=== PATIENT | female | born 1945 | race Caucasian/White ===

== ENCOUNTER 2023-07-19 10:19 | Outpatient (OUT) | payer MEDICARE, SELFPAY ==
--- NOTE | 2023-07-19 10:26 | MR_ITS ---
[address] [address] Patient Name: NICOLE HANSON MRN: [id number] date: 1945 Sex: F Assigned Patient Location: MRI Current Patient Location: MRI Accession/Order Number: [id number] Exam Date: 07/19/2023 10:55 Report Date: 07/19/2023 12:39 At the request of: MC BOYKIN Procedure: MR angio head wo con EXAM: MR angio head wo con CLINICAL INDICATION: Cerebral Aneurysm I67.1 COMPARISON: MRA head 07/01/2022 and 06/30/2021 TECHNIQUE/PROTOCOL: 1) 3D time of flight non contrast brain MRA performed. 3D reconstructions were performed to evaluate vascular anatomy. Carotid stenosis is reported according to NASCET criteria. 2) Standard without contrast brain MRI performed. FINDINGS: Intracranial ICAs: Patent bilaterally from the skull base to the carotid terminus. Unchanged medially projecting 0.4 x 0.3 x 0.3 cm aneurysm arising from the left paraclinoid ICA segment. MCAs: Normal bilaterally. ACAs: Normal bilaterally. P-Comms: Visualized bilaterally. Vertebral arteries: Normal to the confluence with the basilar artery. Left dominant vertebral system. Basilar artery: Normal. senior credit analyst: Normal bilaterally. No restricted diffusion, extra-axial fluid collection, hydrocephalus, midline shift, or other mass effect. Intracranial flow voids are maintained. Patchy scattered hyperintense T2/FLAIR periventricular and subcortical foci are likely on the basis of chronic microvascular angiopathic changes. Moderate symmetric global volume loss without lobar predominance. Commensurate ventricular system caliber prominence. Normal marrow signal. No soft tissue abnormalities. Trace scattered paranasal sinus mucosal thickening. Mastoid air cells are well-aerated. MR/MR angio head wo con IMPRESSION: 1. Unchanged medially projecting 0.4 x 0.3 x 0.3 cm aneurysm arising from the left paraclinoid ICA segment. 2. No large vessel arterial occlusion, high-grade narrowing, or substantial luminal irregularity in the head. No new aneurysm. 3. No acute intracranial process. Electronically authenticated by: JULITA MOCK Date: 07/19/2023 12:39
== END 2023-07-19 10:20 | disposition home or self-care (01) ==
LOC: MRI 10:19
PROVIDERS: PCP Internal Medicine; Visit Provider Physician Assistant
DX: I67.1 Cerebral aneurysm, nonruptured (principal)
CPT/HCPCS: 70544

== ENCOUNTER 2024-10-19 14:29 | Outpatient (OUT) | payer MEDICARE, SELFPAY ==
--- NOTE | 2024-10-19 14:33 | MR_ITS ---
The [address] [address] Patient Name: NICOLE HANSON MRN: [id number] date: 1945 Sex: F Assigned Patient Location: MRI Current Patient Location: MRI Accession/Order Number: [id number] Exam Date: 10/19/2024 15:41 Report Date: 10/19/2024 15:50 At the request of: MC BOYKIN Procedure: MR angio head wo con MR angio head wo con 10/19/2024 3:37 PM SIGN OF SYMPTOMS: ^Cerebral Aneurysm PROTOCOL: Multisequence, multiplanar imaging of the brain was performed without the use of IV contrast. Additional [id number] MRA was also performed. COMPARISON: MRA 07/19/2023 FINDINGS: MRI BRAIN WITHOUT CONTRAST: Cortical atrophy with moderately severe chronic microvascular ischemic changes are noted. Posterior fossa appears grossly unremarkable. Intraorbital contents appear grossly unremarkable. No significant paranasal sinus disease. Midline structures appear grossly unremarkable. MRA BRAIN: The superior cerebellar arteries, posterior inferior cerebellar arteries, and the basilar artery are within normal limits. The posterior cerebral arteries are unremarkable. The intracranial segments of the internal carotid arteries once again demonstrates a saccular aneurysm extending off the medial aspect of the supraclinoid left ICA measuring approximately 4 x 4 x 3 mm similar configuration and size when compared to the prior MRI study. There are normal anterior and middle cerebral arteries. Anterior communicating artery is patent. Posterior communicating arteries are present. The deep venous system and dural venous systems appear to be patent. 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 Cortical atrophy with moderately severe chronic microvascular ischemic changes grossly similar to the prior study. Impression dictated by: Barber Trejo Jr., D.O.10/19/2024 3:50 PM Dictation Location: [place] [address] Electronically authenticated by: [id number] Y Date: 10/19/2024 15:50
== END 2024-10-19 14:30 | disposition home or self-care (01) ==
LOC: MRI 14:29
PROVIDERS: PCP Internal Medicine; Visit Provider Physician Assistant
DX: I67.1 Cerebral aneurysm, nonruptured (principal)
CPT/HCPCS: 70544

== ENCOUNTER 2025-01-25 09:50 | Outpatient (OUT) | payer MEDICARE, SELFPAY ==
--- OUTSIDE RECORDS SUMMARY | 2025-01-25 09:52 | XMS_ITS | Clinical Summary ---
Author Organization [facility] Healthcare Address [address] [place] [address] Care Team Providers Care Manager Real Estate Name Role Phone Juve Combs MD Primary Care Provider [phone] Allergies Active Allergy Reactions Criticality Noted Date Comments Glycerin Itching,Swelling 11/21/2012 Sulfa Antibiotics Itching,Rash Low 12/10/2014 Medications cetirizine (ZyrTEC ALLERGY) 10 MG tablet Take 10 mg by mouth Daily as needed. Active Ascorbic Acid (vitamin C) 250 MG tablet Take 250 mg by mouth in the morning. Active Probiotic Product (Instabug HEALTH PO) Take 1 tablet by mouth if needed. Active eye vitamin supplement (Ocuvite Eye Health Formula) capsule Take 1 capsule by mouth in the morning. Active omega-3 acid ethyl esters (Lovaza) 1 g capsule Take 1 g by mouth in the morning. Active acetaminophen (Tylenol) 500 MG tablet Take 2 tablets by mouth 1 (one) time each day. Active Glucosamine-Chondr oitin (Osteo Bi-Flex Regular Strength) 250-200 MG tablet Take 1 tablet by mouth 1 (one) time each day. Active simvastatin (Zocor) 20 MG tabletIndications: Hypocholesterolemi a TAKE 1 TABLET BY MOUTH EVERY DAY IN THE EVENING FOR 100 DAYS 90 tablet 4 02/07/20 24 Active lisinopril 10 MG tabletIndications: Essential (primary) hypertension TAKE 1 TABLET BY MOUTH EVERY DAY IN THE MORNING 100 tablet 3 05/22/20 24 Active Polyethyl Glyc-Propyl Glyc PF (Systane Preservative Free) 0.4-0.3 % solution A ctive levothyroxine (Synthroid, Levoxyl) 50 MCG tabletIndications: Acquired hypothyroidism Take 1 tablet (50 mcg) by mouth in the morning. 100 tablet 3 07/10/20 24 Active LORazepam (Ativan) 0.5 MG tabletIndications: Anxiety Take 1 tablet (0.5 mg) by mouth every 6 (six) hours if needed for anxiety or sedation 30 tablet 12/30/19 25 Active azelastine (Optivar) 0.05 % ophthalmic solution Administer 1 drop into both eyes Daily 01/03/20 25 Active Loteprednol Etabonate 0.5 % gel Apply 1 drop to both eyes in the morning and 1 drop before bedtime. 12/22/19 25 Active FLUoxetine (PROzac) 10 MG capsuleIndications :Anxiety Take 1 capsule (10 mg) by mouth Daily 30 capsule 1 01/04/20 25 Active fluticasone (Flonase) 50 MCG/ACT nasal sprayIndications:P ost-nasal drip ADMINISTER 1-2 SPRAYS INTO EACH NOSTRIL IN THE MORNING. SHAKE GENTLY. BEFORE FIRST USE, PRIME PUMP. AFTER USE, CLEAN TIP AND REPLACE CAP. 48 mL 1 09/06/19 24 025 Discontinu ed(Therapy completed) LORazepam (Ativan) 0.5 MG tabletIndications: Anxiety Take 1 tablet (0.5 mg) by mouth every 6 (six) hours if needed for anxiety or sedation 30 tablet 05/24/20 24 025 Discontinu ed(Reorder ) triamcinolone (Kenalog) 0.1 % ointment Apply 1 application topically 2 (two) times a day as needed for rash 06/10/20 24 Discontinu ed(Therapy completed) naproxen (Naprosyn) 375 MG tabletIndications: Sternocostal pain Take 1 tablet (375 mg) by mouth Daily as needed for mild pain (pain) for up to 14 days Take with food 14 tablet 01/04/20 25 Active Problems Problem Noted Date Diagnosed Date Exudative age-related macula r degeneration, left eye, stage unspecified 01/03/2025 Overview (01/03/2025): Documented on 10/01/2022 by MAN MELTON Glaucoma suspect 05/31/2024 Benign essential hypertension 06/16/2023 Hypocholesterolemia 06/16/2023 Hypothyroidism 06/16/2023 Pseudophakia 06/16/2023 Postlaminectomy syndrome of lumbar region 2022 Osteoporosis 06/16/2023 Calcaneal spur of right foot 06/16/2023 Plantar fascial fibromatosis 06/16/2023 Lumbar degenerative disc disease 06/16/2023 Thoracic spondylosis 06/16/2023 Spondylolisthesis, lumbar region 06/16/2023 Other idiopathic scoliosis, thoracolumbar region 06/16/2023 Diverticulosis of sigmoid colon 06/16/2023 Disorder of peristalsis of esophagus 06/16/2023 Nonulcer dyspepsia 06/16/2023 Cerebral aneurysm, nonruptured ([facility]) 023 Benign paroxysmal positional vertigo 06/16/2023 Vitreous degeneration, bilateral 06/16/2023 Serous detachment of retinal pigment epithelium, left eye 06/16/2023 Other chronic pain 06/16/2023 Insomnia 06/16/2023 Anxiety 06/16/2023 Atrophic gastritis 06/16/2023 Retinal neovascularization, unspecified, left ey e 06/11/2021 Cervical spondylosis without myelopathy 12/11/19 15 Resolved Problems Problem Noted Date Diagnosed Date Resolved Date Exudative age-related macular degeneration 05/31/2024 01/03/2025 Chest pain 10/29/2017 07/07/2023 Encounters Date Type Department Care Team Description 01/08/2025 Abstract [facility] [address] [place] [address] [place] [address] Juve Combs MD 01/03/2025 10:00 AM EDT Office Visit [facility] [address] [facility] [address] [place] [address] Margaux Yee PA Sternocostal pain (Primary Dx); 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; Benign essential hypertension ; Anxiety; Chest pain, unspecified type; Other fatigue; Holosystolic murmur; Exudative age-related macular degeneration, bilateral, stage unspecified ([facility]) 01/03/[address] [facility] [address] [facility] [address] [place] [address] Juve Combs MD 01/03/[address] [facility] [address] [facility] [address] [place] [address] Alena Dia MASH TUB COOKER 01/03/2025 Bamboo flowsheet [facility] [address] [facility] [address] [place] [address] Margaux Yee PA 01/03/2025 Travel 12/28/2024 Refill [facility] [address] [place] [address] [place] [address] Juve Combs MD Anxiety from Last 3 Months Immunizations Immunization Administration Dates Next Due Influenza, High Dose Seasona l, Preservative Free 06/22/2022,06/11/2021,2020,05/24 Influenza, High-dose Seasona l, Quadrivalent, Preservative Free 07/07/2023 Influenza, injectable, quadr ivalent, preservative free 09/06/2015 Influenza, seasonal, injecta ble, preservative free 06/09/2014 Influenza, seasonal, intrade rmal, preservative free 05/04/2018,05/10/2013 Pneumococcal Conjugate PCV 13 04/23/2016 Pneumococcal Polysaccharide PPSV23 01/29/2015 Zoster, live 07/18/2015 Family History Medical History Relation Name Comments Melanoma Neg Hx Relation Name Status Comments Other Alive spouse Social History Tobacco Use Types Packs/Day Years Used Date Smoking Tobacco: Former Cigarettes Smokeless Tobacco: Never Tobacco Cessation:Counseling Given: Not Answered Alcohol Use Standard Drinks/Week Comments Not Asked 0 (1 standard drink = 0.6 oz pur e alcohol) Caffeine intake: coffee PHQ-2 Answer Date Recorded Patient Health Questionnaire-2 Score 0 01/03/2025 Comments Unknown Sex and Gender Information Value Date Recorded Sex Assigned at Not on file Legal Sex Female 6:46 PM EDT Gender Identity Not on file Sexual Orientation Not on file Last Filed Vital Signs Vital Sign Reading Time Taken Comments Blood Pressure 134/82 01/03/2025 9:50 AM EDT Pulse 90 01/03/2025 9:50 AM EDT Temperature 36.4 C (97.5 F) 08/31/2024 9:30 AM EST Respiratory Rate 16 01/03/2025 9:50 AM EDT Oxygen Saturation 99% 01/03/2025 9:50 AM EDT Inhaled Oxygen Concentration - - Weight 60.4 kg (133 lb 3.2 oz) 01/03/2025 9:50 A M EDT Height 154.9 cm (5' 1 ) 01/03/2025 9:50 AM EDT Body Mass Index 25.17 01/03/2025 9:50 AM EDT Plan of Treatment Upcoming Encounters Date Type Department Care Team (Late st Contact Info) Description 01/31/2025 11:00 AM EDT Office Visit [facility] [address] [place] [address] [place] [address] Margaux Yee PA [address] [place] [address] 03/13/2025 10:00 AM EDT Office Visit [facility] [address] [place] [address] Jennifer William PA [address] [place] [address] Health Maintenance Due Date Last Done Comments Medicare Annual Wellness (AWV) 07/10/2025 07/10/2024 , 07/07/2023 Pneumococcal Vaccine: 65+ Years Completed 6, 01/29/2015 Influenza Vaccine Completed 06/03/2024, , 06/22/2022, Additional history exists Goals Goal Patient Goal Type Associated Problems Recent Progress Patient-Stated? Author Help patient manage antidepressant medication Care Plan Patient on antidepressant monitoring plan No Margaux Yee PA Additional Health Concerns Active Problems Noted Date Diagnosed Date Patient on antidepressant monitoring plan 2024 Insurance [employer] MEDICARE ADVANTAGE Care Teams Manager Real Estate Relationship Specialty Start Date End Date Juve Combs MD [address] [address] PCP - General Internal Medicine 12/15/22
--- OUTSIDE RECORDS SUMMARY | 2025-01-25 09:52 | XMS_ITS | Encounter Summary ---
Author Organization [facility] Address [address] [facility] [address] Care Team Providers Care Cone Picker Name Role Phone Juve Combs MD Primary Care Provider Encounter Details Date Type Department Care Team (Late st Contact Info) Description 07/10/2024 Abstract [facility] [address] [facility] 110 [place] [address] Juve Combs MD [address] [facility] 110 [place] [address] Social History Tobacco Use Types Packs/Day Years Used Date Smoking Tobacco: Former Cigarettes Smokeless Tobacco: Never Alcohol Use Standard Drinks/Week Comments Not Asked 0 (1 standard drink = 0.6 oz pur e alcohol) Caffeine intake: coffee PHQ-2 Answer Date Recorded Patient Health Questionnaire-2 Score 0 07/10/2024 Comments Unknown Sex and Gender Information Value Date Recorded Sex Assigned at Not on file Legal Sex Female 6:46 PM EDT Gender Identity Not on file Sexual Orientation Not on file documented as of this encounter Functional Status * Over the past 2 weeks, how often have you been bothered by any of the following problems? Question Answer Date of Assessment Author Little interest or pleasure in doing things Not at all 07/10/2024 8:00 AM EST Alena Dia LP N Feeling down, depressed, or hopeless Not at all 07/10/2024 8:00 AM EST Alena Dia LP N Patient Health Questionnaire -2 Score 0 07/10/2024 8:00 AM EST lAena Dia LP N * Question Answer Date of Assessment Author Trouble falling or staying asleep, or sleeping too much Not at all 07/10/2024 8:00 AM Shonda Ken LPN Feeling tired or having eduarda le energy Not at all 07/10/2024 8:00 AM Alena Ken LP N Poor appetite or overeating Not at all 07/10/2024 8: 00 AM Alena Ken LPN Feeling bad about yourself - or that you are a failure or have let yourself or your family down Not at all 07/10/2024 8:00 AM Alena Ken LPN Trouble concentrating on thi ngs, such as reading the newspaper or watching television Not at all 07/10/2024 8:00 AM Alena Ken LP N Moving or speaking so slowly that other people could have noticed? Or the opposite - being so fidgety or restless that you have been moving around a lot more than usual. Not at all 07/10/2024 8:00 AM Alena Ken LP N Thoughts that you would be better off or hurting yourself in some way Not at all 07/10/2024 8:00 AM Alena Ken L PN Patient Health Questionnaire -9 Score 0 07/10/2024 8:00 AM Alena Ken LP N documented as of this encounter Plan of Treatment Upcoming Encounters Date Type Department Care Team (Late st Contact Info) Description 01/31/2025 11:00 AM EDT Office Visit [facility] [address] [facility] 110 [place] [address] Margaux Yee PA [address] [facility] 110 [place] [address] 03/13/2025 10:00 AM EDT Office Visit [facility] [address] [place] [address] Jennifer William PA [address] [place] [address] documented as of this encounter Visit Diagnoses Not on filedocumented in this encounter Additional Health Concerns Assessment Noted Time PHQ-9 Depression Total Score: 0 07/10/20 24 8:00 AM EST documented as of this encounter Care Teams Cone Picker Relationship Specialty Start Date End Date Juve Combs MD [address] [id number] PCP - General Internal Medicine 12/15/22 documented as of this encounter
--- OUTSIDE RECORDS SUMMARY | 2025-01-25 09:52 | XMS_ITS | Encounter Summary ---
Author Organization [facility] Address [address] [facility] [place] [address] Care Team Providers Care Industrial Relations Worker Name Role Phone Juve Combs MD Primary Care Provider [phone] Encounter Details Date Type Department Care Team (Late Contact Info) Description 01/03/2025 Abstract [facility] [address] [facility] 110 [place] [phone] Juve Combs MD [address] [facility] 110 [place] [address] Social History Tobacco Use Types [...] pleasure in doing things Not at all 01/03/2025 9:42 AM EDT Alena Dia LP N Feeling down, depressed, or hopeless Not at all 01/03/2025 9:42 AM EDT Alena Dia LP N Patient Health Questionnaire -2 Score 0 01/03/2025 9:42 AM EDT Alena Dia LP N documented as of this encounter Plan of Treatment Upcoming Encounters Date Type Department Care Team (Late Contact Info) Description 01/31/2025 11:00 AM EDT Office Visit [facility] [address] [facility] 110 [place] [address] Margaux Yee PA [address] [facility] 110 [place] [address] 03/13/2025 10:00 AM EDT Office Visit [facility] [address] [place] [address] Jennifer William, INDY [address] [place] [address] documented as of this encounter Goals Goal Patient Goal Type Associated Problems Recent Progress Patient-Stated? Author Help patient manage antidepressant medication Care Plan Patient on antidepressant monitoring plan No Margaux Yee, PA documented as of this encounter Visit Diagnoses Not on filedocumented in this encounter Additional Health Concerns Active Problems Noted Date Diagnosed Date Patient on antidepressant monitoring plan 2024 Assessment Noted Time PHQ-9 Depression Total Score: 0 07/10/20 24 8:00 AM EST documented as of this encounter Care Teams Industrial Relations Worker Relationship Specialty Start Date End Date Juve Combs MD [address] [facility] 110 [place] [address] PCP - General Internal Medicine 12/15/22 documented as of this encounter
--- OUTSIDE RECORDS SUMMARY | 2025-01-25 09:52 | XMS_ITS | Encounter Summary ---
Author Organization [facility] Address [address] [place] [address] Care Team Providers Care Electric Plater Name Role Phone Juve Combs MD Primary Care Provider [phone] Encounter Details Date Type Department Care Team (Late Contact Info) Description 07/18/2024 Abstract [facility] [address] [facility] 110 [place] [address] Juve Combs MD [address] [facility] 110 [place] [address] Social History Tobacco Use Types Packs/Day Years [...] on file documented as of this encounter Plan of Treatment Upcoming Encounters Date Type Department Care Team (Late Contact Info) Description 01/31/2025 11:00 AM EDT Office Visit [facility] [address] [facility] 110 [place] [address] Margaux Yee PA [address] [facility] 110 [place] [address] 03/13/2025 10:00 AM EDT Office Visit [facility] [address] [place] [address] Jennifer William PA [address] [place] [address] documented as of this encounter Visit Diagnoses Not on filedocumented in this encounter Additional Health Concerns Assessment Noted Time PHQ-9 Depression Total Score: 0 07/10/20 24 8:00 AM EST documented as of this encounter Care Teams Electric Plater Relationship Specialty Start Date End Date Juve Combs MD [address] [facility] 110 [place] [address] PCP - General Internal Medicine 12/15/22 documented as of this encounter
--- OUTSIDE RECORDS SUMMARY | 2025-01-25 09:52 | XMS_ITS | Encounter Summary ---
Author Organization [facility] Address [address] [place] [address] Care Team Providers Care Grinder Set Up Operator Gear Tool Name Role Phone Juve Combs MD Primary Care Provider [phone] Encounter Details Date Type Department Care Team (Late Contact Info) Description 01/08/2025 Abstract [facility] [address] [facility] 110 [place] [address] Juve Combs MD [address] [facility] 110 [place], [place] [id number] Social History Tobacco Use Types Packs/Day Years [...] FM [address] [place] [address] [place] [address] Marguax Yee PA [address] [facility] 110 [place] [address] 03/13/2025 10:00 AM EDT Office Visit [facility] [address] [place] [address] Jennifer William PA [address] [place] [address] documented as of this encounter Goals Goal Patient Goal Type Associated Problems Recent Progress Patient-Stated? Author Help patient manage antidepressant medication Care Plan Patient on antidepressant monitoring plan Margaux Denton PA documented as of this encounter Visit Diagnoses Not on filedocumented in this encounter Additional Health Concerns Active Problems Noted Date Diagnosed Date Patient on antidepressant monitoring plan 2024 Assessment Noted Time PHQ-9 Depression Total Score: 0 07/10/20 24 8:00 AM EST documented as of this encounter Care Teams Grinder Set Up Operator Gear Tool Relationship Specialty Start Date End Date Juve Combs MD [address] [facility] 110 [place] [address] PCP - General Internal Medicine 12/15/22 documented as of this encounter
--- OUTSIDE RECORDS SUMMARY | 2025-01-25 09:52 | XMS_ITS | Encounter Summary ---
Author Organization [facility] Address [address] [facility] [place] [address] Care Team Providers Care Optometrist Owner Name Role Phone Juve Combs MD Primary Care Provider [phone] Encounter Details Date Type Department Care Team (Late Contact Info) Description 03/19/2023 Abstract [facility] [address] [facility] 110 [place] [address] Juve Combs MD [address] [facility] 110 [place] [address] Social History Tobacco Use Types Packs/Day Years Used Date Smoking Tobacco: Former Cigarettes Smokeless Tobacco: Never Comments Unknown Sex and Gender Information Value Date Recorded Sex Assigned at Not on file Legal Sex Female 6:46 PM EDT Gender Identity Not on file Sexual Orientation Not on file documented as of this encounter Plan of Treatment Upcoming Encounters Date Type Department Care Team (Late Contact Info) Description 01/31/2025 11:00 AM EDT Office Visit [facility] [address] [facility] 110 [place] [address] Margaux Yee PA [address] [facility] 110 [place] [address] 03/13/2025 10:00 AM EDT Office Visit [facility] [address] [place] [address] Jennifer William PA [address] [place] [address] documented as of this encounter Visit Diagnoses Not on filedocumented in this encounter Care Teams Optometrist Owner Relationship Specialty Start Date End Date Juve Combs MD 112 [facility] 110 [place] [address] PCP - General Internal Medicine 12/15/22 documented as of this encounter
--- OUTSIDE RECORDS SUMMARY | 2025-01-25 09:52 | XMS_ITS | Encounter Summary ---
Author Organization [facility] Address [address] [place] [address] Care Team Providers Care Resource Management Planner Name Role Phone Juve Combs MD Primary Care Provider [phone] Encounter Details Date Type Department Care Team (Late Contact Info) Description 07/19/2023 Orders Only [facility] [address] [facility] [address] [place] [address] A, Unknown Practice [address] [place], [place] [phone] Social History Tobacco Use Types Packs/Day Years Used Date Smoking Tobacco: Former Cigarettes Smokeless Tobacco: Never Alcohol Use Standard Drinks/Week Comments Not Asked 0 (1 standard drink = 0.6 oz pur e alcohol) Caffeine intake: coffee Comments Unknown Sex and Gender Information Value Date Recorded Sex Assigned at Not on file Legal Sex Female 6:46 PM EDT Gender Identity Not on file Sexual Orientation Not on file documented as of this encounter Plan of Treatment Upcoming Encounters Date Type Department Care Team (Late Contact Info) Description 01/31/2025 11:00 AM EDT Office Visit [facility] [address] [facility] 110 [place] [phone] Margaux Yee PA [address] [facility] 110 [place] [address] 03/13/2025 10:00 AM EDT Office Visit [facility] [address] [place] [address] Jennifer William PA [address] [facility] [address] [place] [address] documented as of this encounter Procedures Procedure Name Priority Date/Time Associated Diagnosis Comments MRI HEAD/BRAIN WO CONTRAS Routine 07/19/2023 12:58 PM EST documented in this encounter Results * MRI HEAD/BRAIN WO CONTRAS (07/19/2023 12:58 PM EST) Anatomical Region Laterality Modality Radiographic Gabby ging us Unknown Practice A IMG XR PROCEDURES Final Resul t documented in this encounter Visit Diagnoses Not on filedocumented in this encounter Additional Health Concerns Assessment Noted Time PHQ-9 Depression Total Score: 0 07/07/20 9:00 AM EST documented as of this encounter Care Teams Resource Management Planner Relationship Specialty Start Date End Date Juve Combs MD [address] [address] PCP - General Internal Medicine 12/15/22 documented as of this encounter
--- OUTSIDE RECORDS SUMMARY | 2025-01-25 09:52 | XMS_ITS | Encounter Summary ---
Author Organization [facility] Address [address] [place] [address] Care Team Providers Care Integrated Program Teacher Name Role Phone Juve Combs MD Primary Care Provider [phone] Encounter Details Date Type Department Care Team (Late Contact Info) Description 07/19/2023 Clinisync Result Encounter [facility] External Department Unsolicited Mc Yee PA [address] [facility] 110 [place] [address] Social History Tobacco Use Types Packs/Day Years [...] Visit [facility] [address] [facility] 110 [place] [address] Mc Yee PA [address] [facility] 110 [place] [address] 03/13/2025 10:00 AM EDT Office Visit [facility] [address] [place] [address] Jennifer William PA [address] [facility] 350 [place] [address] documented as of this encounter Procedures Procedure Name Priority Date/Time Associated Diagnosis Comments MR ANGIOGRAM HEAD WO IV CONTRAST 07/19/2023 12:39 PM EST documented in this encounter Results * MR angiogram head wo IV contrast (07/19/2023 12:39 PM EST) Anatomical Region Laterality Modality Head, Neck Magnetic Resonan ce 07/19/2023 12:3 9 PM EST Narrative 07/19/2023 12:42 [place] [address] Magnetic Resonance Report Signed Patient: Desire Hanson MR#: [id number] : 1945 Acct:[id number] Age/Sex: 78 / F ADM Date: 07/19/23 Loc: MRI Attending Dr: MC YEE Ordering Physician: MC YEE Date of Service: 07/19/23 Procedure(s): MR angio head wo con Accession Number(s): [id number] cc: JUVE COMBS ; MC YEE [place] [address] Patient Name: DESIRE HNASON MRN: [id number] date: 1945 Sex: F Assigned Patient Location: MRI Current Patient Location: MRI Accession/Order Number: [id number] Exam Date: 07/19/2023 10:55 Report Date: 07/19/2023 12:39 At the request of: MC YEE Procedure: MR angio head wo con EXAM: MR angio head wo con CLINICAL INDICATION: Cerebral Aneurysm I67.1 COMPARISON: MRA head 07/01/2022 and 06/30/2021 TECHNIQUE/PROTOCOL: 1) 3D time of flight non contrast brain MRA performed. 3D reconstructions were performed to evaluate vascular anatomy. Carotid stenosis is reported according to NASCET criteria. 2) Standard without contrast brain MRI performed. FINDINGS: Intracranial ICAs: Patent bilaterally from the skull base to the carotid terminus. Unchanged medially projecting 0.4 x 0.3 x 0.3 cm aneurysm arising from the left paraclinoid ICA segment. MCAs: Normal bilaterally. ACAs: Normal bilaterally. P-Comms: Visualized bilaterally. Vertebral arteries: Normal to the confluence with the basilar artery. Left dominant vertebral system. Basilar artery: Normal. meat smoker: Normal bilaterally. No restricted diffusion, extra-axial fluid collection, hydrocephalus, midline shift, or other mass effect. Intracranial flow voids are maintained. Patchy scattered hyperintense T2/FLAIR periventricular and subcortical foci are likely on the basis of chronic microvascular angiopathic changes. Moderate symmetric global volume loss without lobar predominance. Commensurate ventricular system caliber prominence. Normal marrow signal. No soft tissue abnormalities. Trace scattered paranasal sinus mucosal thickening. Mastoid air cells are well-aerated. MR/MR angio head wo con IMPRESSION: 1. Unchanged medially projecting 0.4 x 0.3 x 0.3 cm aneurysm arising from the left paraclinoid ICA segment. 2. No large vessel arterial occlusion, high-grade narrowing, or substantial luminal irregularity in the head. No new aneurysm. 3. No acute intracranial process. Electronically authenticated by: LIZZ RODRIGUEZ Date: 07/19/2023 12:39 Dictated By: Lizz Rodriguez M.D. Signed By: 07/19/23 1242 DD/ 1239 TD/TT: Featheredge Machine Operator: Procedure Note Radiology, Radiologist, MD - 07/20/[address] [address] Magnetic Resonance Report Signed Patient: Desire Hanson KMR#: [id number] : 1945cct:[id number] Age/Sex: 78 / FADM Date: 07/19/23 Loc: MRI Attending Dr: MC YEE Ordering Physician: MC YEE Date of Service: 07/19/23 Procedure(s): MR angio head wo con Accession Number(s): [id number] cc: JUVE COMBS ; MC YEE [address] [address] Patient Name: DESIRE HANSON MRN: [id number] date: 1945 Sex: F Assigned Patient Location: MRI Current Patient Location: MRI Accession/Order Number: [id number] Exam Date: 07/19/2023 10:55 Report Date: 07/19/2023 12:39 At the request of: MC YEE Procedure: MR angio head wo con EXAM: MR angio head wo con CLINICAL INDICATION: Cerebral Aneurysm I67.1 COMPARISON: MRA head 07/01/2022 and 06/30/2021 TECHNIQUE/PROTOCOL: 1) 3D time of flight non contrast brain MRA performed. 3D reconstructionswere performed to evaluate vascular anatomy. Carotid stenosis is reportedaccording to NASCET criteria. 2) Standard without contrast brain MRI performed. FINDINGS: Intracranial ICAs: Patent bilaterally from the skull base to the carotid terminus. Unchanged medially projecting 0.4 x 0.3 x 0.3 cm aneurysmarising from the left paraclinoid ICA segment. MCAs: Normal bilaterally. ACAs: Normal bilaterally. P-Comms: Visualized bilaterally. Vertebral arteries: Normal to the confluence with the basilar artery. Left dominant vertebral system. Basilar artery: Normal. meat smoker: Normal bilaterally. No restricted diffusion, extra-axial fluid collection, hydrocephalus,midline shift, or other mass effect. Intracranial flow voids are maintained.Patchy scattered hyperintense T2/FLAIR periventricular and subcortical foci are likely on the basis of chronic microvascular angiopathic changes. Moderatesymmetric global volume loss without lobar predominance. Commensurate ventricularsystem caliber prominence. Normal marrow signal. No soft tissue abnormalities. Trace scatteredparanasal sinus mucosal thickening. Mastoid air cells are well-aerated. MR/MR angio head wo con IMPRESSION: 1. Unchanged medially projecting 0.4 x 0.3 x 0.3 cm aneurysm arising fromthe left paraclinoid ICA segment. 2. No large vessel arterial occlusion, high-grade narrowing, orsubstantial luminal irregularity in the head. No new aneurysm. 3. No acute intracranial process. Electronically authenticated by: LIZZ RODRIGUEZ Date: 07/19/2023 12:39 Dictated By: Lizz Rodriguez M.D. Signed By:07/19/23 1242 DD/ 1239 TD/TT: Featheredge Machine Operator: us Mc PUTNAM IMG MRI PROCEDURES Final Resul t documented in this encounter Visit Diagnoses Not on filedocumented in this encounter Additional Health Concerns Assessment Noted Time PHQ-9 Depression Total Score: 0 07/07/20 9:00 AM EST documented as of this encounter Care Teams Integrated Program Teacher Relationship Specialty Start Date End Date Juve Combs MD [address] [facility] 110 [place] [address] PCP - General Internal Medicine 12/15/22 documented as of this encounter
--- OUTSIDE RECORDS SUMMARY | 2025-01-25 09:52 | XMS_ITS | Encounter Summary ---
Author Organization [facility] Address [address] [facility] [place] [address] Care Team Providers Care Nuclear Control Operator Name Role Phone Juve Combs MD Primary Care Provider [phone] Encounter Details Date Type Department Care Team (Late Contact Info) Description 07/14/2023 Abstract [facility] [address] [facility] 110 [place] [address] Juve Combs MD [address] [facility] 110 [place] [address] Social History Tobacco Use Types Packs/Day Years [...] Office Visit [facility] [address] [facility] 110 [place] [address] Margaux Yee PA [address] [facility] 110 [place] [address] 03/13/2025 10:00 AM EDT Office Visit [facility] [address] [place] [address] Jennifer William PA [address] [facility] 350 [place] [address] documented as of this encounter Visit Diagnoses Not on filedocumented in this encounter Additional Health Concerns Assessment Noted Time PHQ-9 Depression Total Score: 0 07/07/20 23 9:00 AM EST documented as of this encounter Care Teams Nuclear Control Operator Relationship Specialty Start Date End Date Juve Combs MD 112 [facility] 110 [place] [address] PCP - General Internal Medicine 12/15/22 documented as of this encounter
--- OUTSIDE RECORDS SUMMARY | 2025-01-25 09:52 | XMS_ITS | Encounter Summary ---
Author Organization [facility] Address [address] [place] [facility] [place] [address] Care Team Providers Care Construction And Maintenance Inspector Name Role Phone Juve Combs MD Primary Care Provider [phone] Encounter Details Date Type Department Care Team (Late Contact Info) Description 08/18/2023 Orders Only [facility] [address] [facility] 110 [place] [address] A, Unknown Practice [address] [place], [place] [address] Social History Tobacco Use Types Packs/Day Years [...] Visit [facility] [address] [facility] 110 [place] [phone] Margaux Yee PA [address] [place] [place] [address] 03/13/2025 10:00 AM EDT Office Visit [facility] [address] [place] [address] Jennifer William PA [address] [facility] [address] [place] [address] documented as of this encounter Procedures Procedure Name Priority Date/Time Associated Diagnosis Comments SCANNED LABS Routine 08/12/2023 10:29 AM EST documented in this encounter Results * SCANNED LABS (08/12/2023 10:29 AM EST) us Unknown Practice A LAB CHG PERFORMABLES Final Re sult documented in this encounter Visit Diagnoses Not on filedocumented in this encounter Additional Health Concerns Assessment Noted Time PHQ-9 Depression Total Score: 0 07/07/20 9:00 AM EST documented as of this encounter Care Teams Construction And Maintenance Inspector Relationship Specialty Start Date End Date Juve Combs MD 112 [facility] 110 [place] [address] PCP - General Internal Medicine 12/15/22 documented as of this encounter
--- OUTSIDE RECORDS SUMMARY | 2025-01-25 09:52 | XMS_ITS | Encounter Summary ---
Author Organization [facility] Address [address] [place] [address] Care Team Providers Care Mine Supervisor Name Role Phone Juve Combs MD Primary Care Provider [phone] Encounter Details Date Type Department Care Team (Late Contact Info) Description 10/09/2024 Orders Only [facility] [address] [place] 110 [place] [phone] Margaux Yee PA [address] [place] [address] [place], [place] [address] Social History Tobacco Use Types Packs/Day Years [...] FM [address] [place] 110 [place] [address] Margaux Yee PA [address] [place] [address] [place] [address] 03/13/2025 10:00 AM EDT Office Visit [facility] [address] [place] [address] Jennifer William, PA [address] [place] [address] documented as of this encounter Visit Diagnoses Not on filedocumented in this encounter Additional Health Concerns Assessment Noted Time PHQ-9 Depression Total Score: 0 07/10/20 24 8:00 AM EST documented as of this encounter Care Teams Mine Supervisor Relationship Specialty Start Date End Date Juve Combs MD 112 [facility] 110 [place] [address] PCP - General Internal Medicine 12/15/22 documented as of this encounter
--- OUTSIDE RECORDS SUMMARY | 2025-01-25 09:54 | XMS_ITS | Clinical Summary ---
Author Organization [facility] Address [address] [place] [address] Care Team Providers Care Gyn Physician Name Role Phone Garret CORBIN MD, Juve Zhao Primary Care Provider [phone] Allergies Active Allergy Reactions Criticality Noted Date Comments Glycerin Swelling,Itching 11/21/2012 Seasonal Allergies Other: See Comments 11/22/19 13 Sneezing,runny nose,and itchy eyes Sulfa (Sulfonamide Antibiotics) Itching 12/10/2014 Medications LORazepam 0.5 mg TabIndications:C erebral aneurysm, nonruptured (HCC) Take 0.5 mg by mouth daily at bedtime. Active CALCIUM CARBONATE (CALTRATE 600 ORAL)Indications :Cerebral aneurysm, nonruptured (HCC) Take by mouth once daily. Active CETIRIZINE HCL (ZYRTEC ORAL)Indications :Cerebral aneurysm, nonruptured (HCC) Take by mouth as needed. Active MULTIVITAMIN W-MINERALS/LUTEI N (CENTRUM SILVER ORAL)Indications :Cerebral aneurysm, nonruptured (HCC) Take by mouth once daily. Active lisinopril (ZESTRIL, PRINIVIL) 10 mg tablet Take 10 mg by mouth once daily. Active L GASSERI/B BIFIDUM/B LONGUM (Active Optical [employer] [facility] ORAL) Take by mouth. Active Vit A,C and F-Wykp-Q0-Lut-Mn -Glu (EYE-CHUCK EXTRA + LUTEIN) 4912-181-835-2 nlkm-bx-ybyf-mg tab Take by mouth. Takes eye promise vitamin Active VITAMIN B COMPLEX NO.12-NIACIN ORAL Take 500 mg by mouth. Active levothyroxine (SYNTHROID) 50 mcg tablet TAKE 1 TABLET BY MOUTH DAILY IN THE MORNING ON AN EMPTY STOMACH 6 07/21/2017 Active FLAXSEED OIL (OMEGA 3 ORAL) Take 1 tablet by mouth once daily. 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 HTN (hypertension) High cholesterol Neck pain Thyroid disease Vertigo Overview (12/10/2014): hospitalized in [place] Family History Medical History Relation Comments high blood presssure [Other] Father Diabetes Mother heart attack [Other] Mother Relation Status Comments Father Mother Social History Tobacco Use Types Packs/Day Years Used Date Smoking Tobacco: Former Cigarettes 0 08/09/1960 - 08/09/1992 Smokeless Tobacco: Never Alcohol Use Standard Drinks/Week Comments Yes 0 (1 standard drink = 0.6 oz pur e alcohol) social Area Deprivation Index Answer Date Alan rded National Score (1-100), lower number is lower ri sk Not on file 07/17/2020 State Score (1-10), lower number is lower risk N ot on file 07/17/2020 Data from: https://www.neighborhoodatlas.medicine.[facility].edu/. Last address used for calculation Not on file 07/17/2020 Comments No Sex and Gender Information Value Date Recorded Sex Assigned at Not on file Legal Sex Female 11:05 AM EDT Gender Identity Not on file Sexual Orientation Not on file Occupation Industry Job Start Date Job End Date retired Not on file Not on file Not on file Last Filed Vital Signs Vital Sign Reading Time Taken Comments Blood Pressure 139/62 08/18/2017 10:48 AM EST Pulse 90 08/18/2017 10:48 AM EST Temperature - - Respiratory Rate 18 08/18/2017 10:48 AM EST Oxygen Saturation - - Inhaled Oxygen Concentration - - Weight 65.8 kg (145 lb) 08/18/2017 10:48 AM EST Height 160 cm (5' 3 ) 08/18/2017 10:48 AM EST Body Mass Index 25.69 08/18/2017 10:48 AM EST Plan of Treatment Health Maintenance Due Date Last Done Comments Anxiety Screening 1961 Depression Screening 1961 DTaP,Tdap,Td Vaccine (1 - Tdap) 1962 Diabetes Screening 1988 Pneumococcal Vaccine: 50+ (1 of 1 - PCV) 1993 Shingrix Vaccine (1 of 2) 1993 Bone Density Screening 2008 RSV Vaccine (1 - 1-dose 75+ series) 2018 Covid-19 Vaccine (1 - season) 2024 Advance Directive Discussion 08/09/2024 Influenza Vaccine (Season Ended) 2025 Insurance [facility] MEDICARE ADVANTAGE PPO Care Teams Gyn Physician Relationship Specialty Start Date End Date Juve Combs II, MD PCP - General Internal Medicine 11/11/12
--- NOTE | 2025-01-25 10:00 | CA_ITS ---
Patient Name: NICOLE HANSON MR#: [id number] : 1945 Exam Date: 01/25/2025 Ordering Doctor: DR MC PUTNAM CORRECTION Corrected on: 01/26/2025; ECHOCARDIOGRAM REPORT PROCEDURE: CA ECHO DOPPLER COMPLETE INDICATIONS: Chest pain, fatigue, hypertension, murmur, h/o Amarilys fever, h/o Hodgkin's lymphoma COMPARISON: None. DESCRIPTION: COMPLETE ECHOCARDIOGRAM Real-time transthoracic echocardiography with 2D, M-mode, spectral and color flow Doppler performed. QUALITY: Technical quality was good. LEFT VENTRICLE: Normal chamber size. Moderate concentric left ventricular hypertrophy. Normal systolic function. Estimated left ventricular ejection fraction is 65%. LV EF: Normal left ventricular ejection fraction, (>55%). DIASTOLIC: Normal diastolic function. ATRIAL SEPTUM: Visually appears intact. LEFT ATRIUM: Normal chamber size. RIGHT ATRIUM: Normal chamber size. RIGHT VENTRICLE: Normal chamber size. Normal right ventricular systolic function. TRICUSPID VALVE: Normal mobility and thickness. No stenosis with mild regurgitation. No evidence of pulmonary hypertension. RVSP 31 mmHg MITRAL VALVE: Normal mobility and thickness. No evidence of mitral valve stenosis. There is no mitral annular calcification. No mitral regurgitation. AORTIC VALVE: Normal trileaflet appearance. Moderately calcified aortic valve. Moderately diminished mobility. Doppler velocity suggest moderate aortic valve stenosis. DVI 0.3, PALAK 1.3 cm2. No aortic regurgitation. AORTIC ROOT: Normal diameter and appearance measuring 3.1 cm. Aortic arch is normal in size. The ascending aorta is not visualized. PULMONIC VALVE: Normal thickness and mobility. No stenosis. Trivial regurgitation. PERICARDIUM: No evidence of pericardial effusion. IVC: Collapses with inspiration. PLEURA: CONCLUSION: 1. Moderate concentric left ventricular hypertrophy with normal systolic function. Estimated LVEF is 65%. 2. Normal right ventricular size and systolic function. 3. Normal diastolic function. 4. Heavily calcified aortic valve with moderate stenosis. 5. Mild tricuspid regurgitation. 6. Normal right-sided pressures. Adult Echocardiography Procedure Report Left Ventricle LVEDD (3.7 - 5.6 cm): 3.18 cm LVESD (2.2 - 4.0 cm): 2.55 cm LVIVS thickness (0.6 - 1.2 cm): 1.26 cm LVPW thickness (0.5 - 1.0 cm): 1.06 cm e': 0.11 m/s E - e': 4.53 LVOT Max Gradient: 1.66 mm[Hg] LVOT Area (cm2): 0.64 m/s Peak Velocity (LVOT): 0.64 m/s Mean Velocity (LVOT): 0.39 m/s LVOT Diameter 2.04 cm Left Atrium LA Volume Index (2D A2C): 24.05 ml/m2 Left Atrium Systolic Dimension: 3.37 cm Mitral Valve MV E to A Ratio: 0.55 Mitral Valve A-Wave Peak Velocity: 0.89 m/s Mitral Valve E-Wave Peak Velocity: 0.49 m/s Right Ventricle Aorta AO Root Diam: 3.15 cm Aortic Valve AoV Area (Peak Grupo): 1.05 cm2, 1.20 cm2 AoV Area (VTI): 1.29 cm2, 1.37 cm2 Peak Velocity(Antegrade Flow): 1.75 m/s, 1.82 m/s, 2.02 m/s Peak Gradient(Antegrade Flow): 12.29 mm[Hg], 13.25 mm[Hg], 16.30 mm[Hg] Mean Velocity(Antegrade Flow): 1.15 m/s, 1.11 m/s, 1.39 m/s Mean Gradient(Antegrade Flow): 6.32 mm[Hg], 6.13 mm[Hg], 8.84 mm[Hg] Velocity Time Integral: 34.32 cm, 36.00 cm, 36.50 cm Tricuspid Valve Peak Velocity (Regurgitant Flow): 2.34 m/s, 2.64 m/s, 2.53 m/s Pulmonic Valve Peak Gradient: 4.56 mm[Hg], 3.55 mm[Hg] Right Atrium Right Atrium Systolic Pressure: 39.33 ml, 39.33 ml Dictated by: Campos Brown M.D. on 01/26/2025 at 08:04 Approved by: Campos Brown M.D. on 01/26/2025 at 08:09 Dictated by: Campos Brown M.D. on 01/26/2025 at 08:17 Approved by: Campos Brown M.D. on 01/26/2025 at 08:17
--- OUTSIDE RECORDS SUMMARY | 2025-01-25 10:03 | XMS_ITS | CCD ---
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 [employer] Name Role Phone PHYSICIAN, DEFAULT Unavailable Unavailable PHYSICIAN, DEFAULT Unavailable Unavailable PHYSICIAN, DEFAULT Unavailable Unavailable PHYSICIAN, DEFAULT Unavailable Unavailable MAN LEO Unavailable Unavailable Paulino Soriano Admitting Unavailable Paulino Soriano Attending Unavailable Juve Combs Primary Care Unavailabl e JUVE COMBS Consulting Unavailabl Paulino Fishman Attending Unavailable Juve Combs Primary Care Unavailabl JUVE Cole Consulting Unavailabl e AHMEDJUDI Consulting Unavailable Paulino Soriano Attending Unavailable JUVE COBMS Primary Care Unavailabl e JUVE COMBS Consulting Unavailabl e BAHNSARAH Consulting Unavailable ASHUTOSH, DR MARGAUX Capps Admitting Unavailable ASHUTOSH, DR MARGAUX Capps Attending Unavailable GARRET, DR ENGLE Primary Care Unavailable ZIEBREYMUNDO, DR DMITRI Persaud Consulting Unavailable ASHUTOSH, DR MARGAUX Capps Consulting Unavailable Juve Combs MD Primary Care Provider Fermin Lees MD Unavailable UnavailHuy Pacheco Jr, MD Unavailable Unavailable Corporate, Doctor Attending Unavailable Fermin Lees Attending Unavailable Fermin Lees Referring Unavailable Fermin Lees Attending Unavailable Fermin Lees Referring Unavailable Huy Marcano Jr Attending Unavailable Huy Marcano Jr Referring Unavailable BRAYDEN HAYES Referring Unavailable BRAYDEN HAYES Attending Unavailable JENNIFER SHAW Attending Unavailable MARGAUX BOYKIN Attending Unavailable MARGAUX BOYKIN Attending Unavailable MARGAUX BOYKIN Attending Unavailable Corporate , Doctor Unavailable Unavailable Allergies Allergy Classification Reported Allergen(s) Allergy Type Date of Onset Reaction(s) Facility (14 sources) glycerin; Translations: [GLYCERIN] Drug Allergy 3 Itching, Swelling [facility] Repository (1 source) Seasonal allergy; Translations: [SEASONAL ALLERGIES] Propensity to adverse reactions (disorder) 3 AOF [facility] Repository (1 source) Sulfonamides (Antibiotic); Translations: [SULFA (SULFONAMIDE ANTIBIOTICS)] Propensity to adverse reactions to drug (disorder) 5 AOF [facility] Repository (1 source) Sulfonamides (Antibiotic); Translations: [sulfa drugs] Propensity to adverse reactions to drug (disorder) [facility] Repository (1 source) Sulfonamides (Antibiotic) Drug allergy (disorder) 6 [facility] Repository (13 sources) Sulfonamides (Antibiotic) Drug Allergy 5 Itching, Rash [facility] Medications Current Medications Medication Drug Class(es) Dates Sig (Normalized) Sig (Original) acetaminophen 500 mg oral tablet (13 sources) take 2 tablets by mouth once daily acetaminophen (Tylenol) 500 MG tablet Take 2 tablets by mouth 1 (one) time each day. Active ascorbic acid 250 mg oral tablet (13 sources) Vitamin C take 1 tablet by mouth in the morning Ascorbic Acid (vitamin C) 250 MG tablet Take 250 mg by mouth in the morning. Active ascorbic acid 60 mg / cuprous oxide 2 mg / dl-alpha tocopheryl acetate 30 mg / lutein 6 mg / zinc oxide 15 mg oral capsule (3 sources) Vitamin C take 1 capsule by mouth in the morning eye vitamin supplement (Ocuvite Eye Health Formula) capsule Take 1 capsule by mouth in the morning. Active azelastine hydrochloride 0.5 mg/ml ophthalmic solution (3 sources) Histamine-1 Receptor Antagonist Start: 01-02-2025 take 1 drop(s) into the eye(s) once daily azelastine (Optivar) 0.05 % ophthalmic solution Administer 1 drop into both eyes Daily 01/02/2025 Active cetirizine hydrochloride 10 mg oral tablet (13 sources) Histamine-1 Receptor Antagonist take 1 tablet by mouth every twenty-four hours as needed cetirizine (ZyrTEC ALLERGY) 10 MG tablet Take 10 mg by mouth Daily as needed. Active chondroitin sulfates 200 mg / glucosamine hydrochloride 250 mg oral tablet (13 sources) take 1 tablet by mouth once daily Glucosamine-Chondro itin (Osteo Bi-Flex Regular Strength) 250-200 MG tablet Take 1 tablet by mouth 1 (one) time each day. Active eye vitamin supplement (Ocuvite Eye Health Formula) capsule (10 sources) take 1 capsule by mouth in the morning eye vitamin supplement (Ocuvite Eye Health Formula) capsule Take 1 capsule by mouth in the morning. Active FLUoxetine 10 mg oral capsule (2 sources) Serotonin Reuptake Inhibitor Start: 01-03-2025 End: 03-04-2025 take 1 capsule by mouth once daily FLUoxetine (PROzac) 10 MG capsule Indications: Anxiety Take 1 capsule (10 mg) by mouth Daily 30 capsule 1 01/03/2025 03/04/2025 Active fluticasone propionate 0.05 mg/actuat metered dose nasal spray (13 sources) Corticosteroid Start: 09-06-2023 End: 01-03-2025 take 1-2 spray(s) nasal route in the morning fluticasone (Flonase) 50 MCG/ACT nasal spray Indications: Post-nasal drip ADMINISTER 1-2 SPRAYS INTO EACH NOSTRIL IN THE MORNING. SHAKE GENTLY. BEFORE FIRST USE, PRIME PUMP. AFTER USE, CLEAN TIP AND REPLACE CAP. 48 mL 1 09/06/2023 01/03/2025 Discontinued (Therapy completed) gabapentin 100 mg oral capsule (3 sources) Anti-epileptic Agent take 2 tablets by mouth once daily gabapentin 100 mg capsule 2 tabs QD P.O. - Active ketotifen 0.25 mg/ml ophthalmic solution (4 sources) Histamine-1 Receptor Inhibitor Start: 08-12-2023 End: 05-31-2024 take 1 drop(s) into the eye(s) in the morning ketotifen (Zaditor) 0.025 % ophthalmic solution Indications: Allergic conjunctivitis of both eyes Administer 1 drop into both eyes in the morning and 1 drop before bedtime. 5 mL 08/12/2023 05/31/2024 Discontinued (Other) levothyroxine sodium 0.05 mg oral tablet (18 sources) l-Thyroxine Start: 07-12-2023 End: 07-10-2024 take 1 tablet by mouth in the morning levothyroxine (Synthroid, Levoxyl) 50 MCG tablet Indications: Acquired hypothyroidism (CMS/HCC) Take 1 tablet (50 mcg) by mouth in the morning. 100 tablet 3 07/10/2024 Active take 1 capsule by mouth once david ly Tirosint 50 mcg capsule take 1 capsule by oral route every day 50 MCG - Active lisinopril 10 mg oral tablet (16 sources) Angiotensin Converting Enzyme Inhibitor Start: 05-22-2024 take 1 tablet by mouth once daily in the morning lisinopril 10 MG tablet Indications: Essential (primary) hypertension (CMS/HCC) TAKE 1 TABLET BY MOUTH EVERY DAY IN THE MORNING 100 tablet 3 05/22/2024 Active LORazepam 0.5 mg oral tablet (17 sources) Benzodiazepine Start: 12-29-2024 take 1 tablet by mouth every six hours as needed for anxiety and anxiety and anxiety LORazepam (Ativan) 0.5 MG tablet Indications: Anxiety Take 1 tablet (0.5 mg) by mouth every 6 (six) hours if needed for anxiety or sedation 30 tablet 12/29/2024 Active Start: 12-20-2023 End: 05-24-2024 take 1 tablet by mouth every six hours as needed for anxiety and anxiety and anxiety LORazepam (Ativan) 0.5 MG tablet Indications: Anxiety Take 1 tablet (0.5 mg) by mouth every 6 (six) hours if needed for anxiety or sedation 30 tablet 05/24/2024 Active take 1 tablet by miguel th once daily as needed lorazepam 0.5 mg tablet take 1 tablet by oral route every day as needed as needed 0.5 MG - Active loteprednol etabonate 0.005 mg/mg ophthalmic gel (3 sources) Start: 12-21-2024 apply 1 drop(s) into the eye(s) in the morning Loteprednol Etabonate 0.5 % gel Apply 1 drop to both eyes in the morning and 1 drop before bedtime. 12/21/2024 Active naproxen 375 mg oral tablet (2 sources) Nonsteroidal Anti-inflammatory Drug Start: 01-03-2025 End: 01-17-2025 take 1 tablet by mouth once daily at mealtime as needed for pain naproxen (Naprosyn) 375 MG tablet Indications: Sternocostal pain Take 1 tablet (375 mg) by mouth Daily as needed for mild pain (pain) for up to 14 days Take with food 14 tablet 01/03/2025 01/17/2025 Active omega-3 acid ethyl esters (fci) 1000 mg oral capsule (13 sources) omega-3 acid eth yl esters (Lovaza) 1 g capsule Take 1 g by mouth in the morning. Active polyethylene glycol 400 4 mg/ml / propylene glycol 3 mg/ml ophthalmic solution (14 sources) Systane (PF) 0.4 %-0.3 % eye drops in a dropperette - Active Probiotic Product (DAVIDsTEA PO) (13 sources) Probiotic Produc t (DAVIDsTEA PO) Take 1 tablet by mouth if needed. Active simvastatin 20 mg oral tablet (13 sources) HMG-CoA Reductase Inhibitor Start: 02-07-2024 take 1 tablet by mouth once daily in the evening simvastatin (Zocor) 20 MG tablet Indications: Hypocholesterolemia (CMS/HCC) TAKE 1 TABLET BY MOUTH EVERY DAY IN THE EVENING FOR 100 DAYS 90 tablet 4 02/07/2024 Active triamcinolone acetonide 0.001 mg/mg topical ointment (9 sources) Corticosteroid Start: 06-10-2024 End: 01-03-2025 triamcinolone (Kenalog) 0.1 % ointment Apply 1 application topically 2 (two) times a day as needed for rash 06/10/2024 01/03/2025 Discontinued (Therapy completed) Completed/Discontinued Medications Medication Drug Class(es) Dates Sig (Normalized) Sig (Original) betamethasone 3 mg/ml / betamethasone acetate 3 mg/ml injectable suspension (8 sources) Corticosteroid Start: 08-31-2024 End: 08-31-2024 1 mL, Intra-articular, Once PRN Procedure, Starting on Dawn 08/31/24 at 1028, For 1 dose Start: 08-31-2024 End: 08-31-2024 betamethasone acetate-betame thasone sodium phosphate (Celestone) injection 1 mL Problems Active Problems Problem Classification Problem Date Documented Da te Episodic/Chronic Administrative/social admission (2 sources) Patient encounter status; Translations: [Other specified counseling] 07-10-2024 Episodic Anxiety disorders (18 sources) Anxiety; Translations: [Anxiety disorder, unspecified] Onset: 06-16-2023 05-24-2024 Chronic Cataract (20 sources) Artificial lens present; Translations: [Presence of intraocular lens] Onset: 06-16-2023 06-16-2023 Chronic Diverticulosis and diverticulitis (15 sources) Diverticulosis of sigmoid colon; Translations: [Diverticulosis of large intestine without perforation or abscess without bleeding] Onset: 06-16-2023 06-16-2023 Chronic Esophageal disorders (15 sources) Disorder of esophageal peristalsis; Translations: [Dyskinesia of esophagus] Onset: 06-16-2023 06-16-2023 Chronic Essential hypertension (20 sources) Essential (primary) hypertension; Translations: [Benign essential hypertension] Onset: 07-06-2022 06-16-2023 Chronic Gastritis and duodenitis (17 sources) Atrophic gastritis; Translations: [Chronic atrophic gastritis without bleeding] Onset: 06-16-2023 06-16-2023 Chronic Glaucoma (20 sources) Preglaucoma, unspecified, unspecified eye; Translations: [Preglaucoma, unspecified] Onset: 05-16-2024 05-31-2024 Chronic Heart valve disorders (4 sources) Pansystolic murmur; Translations: [Cardiac murmur, unspecified] 01-03-2025 Episodic Malaise and fatigue (4 sources) Fatigue; Translations: [Other fatigue] 01-03-2025 Episodic Miscellaneous mental health disorders (2 sources) Primary insomnia; Translations: [Primary insomnia] 07-10-2024 Chronic Nonspecific chest pain (19 sources) Chest pain; Translations: [Chest pain, unspecified] Onset: 10-29-2017 Resolved: 07-07-2023 07-07-2023 Episodic Osteoporosis (16 sources) Age-related osteoporosis without current pathological fracture; Translations: [Osteoporosis] Onset: 07-06-2022 06-16-2023 Chronic Other and ill-defined cerebrovascular disease (1 source) Cerebral aneurysm, nonruptured; Translations: [CEREBRAL ANEURYSM NONRUPTURED] Onset: 07-06-2022 Chronic Other and ill-defined cerebrovascular disease (15 sources) Cerebral arterial aneurysm; Translations: [Cerebral aneurysm, nonruptured] Onset: 06-16-2023 06-16-2023 Chronic Other bone disease and musculoskeletal deformities (15 sources) Idiopathic scoliosis of thoracic and lumbar spine; Translations: [Other idiopathic scoliosis, thoracolumbar region] Onset: 06-16-2023 06-16-2023 Chronic Other eye disorders (15 sources) Bilateral vitreous degeneration of eyes; Translations: [Vitreous degeneration, bilateral] Onset: 06-16-2023 06-16-2023 Chronic Other eye disorders (20 sources) Vitreous degeneration, bilateral; Translations: [Vitreous degeneration, bilateral] Onset: 05-16-2024 Chronic Other eye disorders (9 sources) Dry eye syndrome of bilateral lacrimal glands Episodic Other nervous system disorders (15 sources) Chronic pain; Translations: [Other chronic pain] Onset: 06-16-2023 06-16-2023 Chronic Other non-traumatic joint disorders (2 sources) Pain in right shoulder; Translations: [Pain in joint, shoulder region] 08-31-2024 Episodic Other nutritional; endocrine; and metabolic disorders (1 source) Lipoprotein deficiency; Translations: [LIPOPROTEIN DEFICIENCY] Onset: 07-06-2022 Chronic Other nutritional; endocrine; and metabolic disorders (15 sources) Hypocholesterolemia; Translations: [Lipoprotein deficiency] Onset: 06-16-2023 06-16-2023 Chronic Other upper respiratory disease (2 sources) Allergic rhinitis; Translations: [Other allergic rhinitis] 05-31-2024 Chronic Retinal detachments; defects; vascular occlusion; and retinopathy (20 sources) 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; Translations: [Serous detachment of retinal pigment epithelium, left eye] Onset: 11-27-2020 Resolved: 12-16-2023 06-16-2023 Chronic Spondylosis; intervertebral disc disorders; other back problems (20 sources) Lumbar post-laminectomy syndrome; Translations: [Postlaminectomy syndrome, not elsewhere classified] Onset: 12-10-2014 06-16-2023 Chronic Thyroid disorders (16 sources) Hypothyroidism, unspecified; Translations: [Hypothyroidism] Onset: 07-06-2022 06-16-2023 Chronic Unclassified (4 sources) Right shoulder pain, unspecified chronicity 09-02-2024 Unclassified (3 sources) AMD (chief complaint) Onset: 10-03-2024 Unclassified (3 sources) CNV (chief complaint) Onset: 05-16-2024 Unclassified (2 sources) Patient on antidepressant monitoring plan Onset: 01-03-2025 01-03-2025 Past or Other Problems Problem Classification Problem Date Documented Date Episodic/Chronic Conditions associated with dizziness or vertigo (15 sources) Benign paroxysmal positional vertigo; Translations: [Benign paroxysmal vertigo, unspecified ear] Onset: 06-16-2023 Episodic Mood disorders (13 sources) Mood disorders Onset: 3 Resolved: 4 07-07-2023 Other acquired deformities (15 sources) Lumbar spondylolisthesis; Translations: [Spondylolisthesis, lumbar region] Onset: 3 06-16-2023 Episodic Other connective tissue disease (15 sources) Calcaneal spur of right foot; Translations: [Calcaneal spur, right foot] Onset: 3 06-16-2023 Episodic Other connective tissue disease (15 sources) Plantar fascial fibromatosis; Translations: [Plantar fascial fibromatosis] Onset: 3 06-16-2023 Episodic Other disorders of stomach and duodenum (15 sources) Nonulcer dyspepsia; Translations: [Functional dyspepsia] Onset: 3 06-16-2023 Episodic Residual codes; unclassified (13 sources) Insomnia; Translations: [Insomnia, unspecified] Onset: 3 06-16-2023 Episodic Unclassified (6 sources) retinal neovascularization (chief complaint) stable vision (chief complaint) Onset: 0 Resolved: 2 Unclassified (3 sources) retinal neovascularization (chief complaint) sensitivity to light (chief complaint) Onset: 1 Unclassified (3 sources) retinal neovascularization (chief complaint) vision improvement (chief complaint) Onset: 1 Unclassified (3 sources) retinal neovascularization (chief complaint) stable vision (chief complaint) vision improvement (chief complaint) Onset: 1 Unclassified (3 sources) retinal neovascularization (chief complaint) improvement in distortion (chief complaint) Onset: 0 Unclassified (3 sources) retinal neovascularization (chief complaint) improved vision (chief complaint) Onset: 0 Unclassified (3 sources) retinal neovascularization (chief complaint) increase in vision (chief complaint) Onset: 0 Unclassified (3 sources) Injection Only of Avastin for retinal law (chief complaint) Onset: 0 Unclassified (3 sources) Retinal neovascularization (chief complaint) cloudy vision (chief complaint) Onset: 0 Unclassified (3 sources) macular edema (chief complaint) cloudy vision (chief complaint) Onset: 0 Results Test Name Value Interpretation Reference Range Facility MRA Head vessels WO contrast on 10-19-2024 [place] [id number] Magnetic Resonance Report Signed Patient: DESIRE HIRSCH MR#: [id number] : 1945 Acct:[id number] Age/Sex: 79 / F ADM Date: 10/19/24 Loc: MRI Attending Dr: MARGAUX BOYKIN Ordering Physician: MARGAUX BOYKIN Date of Service: 10/19/24 Procedure(s): MR angio head wo con Accession Number(s): [id number] cc: JUVE COMBS ; MARGAUX BOYKIN [place] [id number] Patient Name: DESIRE HIRSCH MRN: [id number] date: 1945 Sex: F Assigned Patient Location: MRI Current Patient Location: MRI Accession/Order Number: [id number] Exam Date: 10/19/2024 15:41 Report Date: 10/19/2024 15:50 At the request of: MARGAUX BOYKIN Procedure: MR angio head wo con MR angio head wo con 10/19/2024 3:37 PM SIGN OF SYMPTOMS: Cerebral Aneurysm PROTOCOL: Multisequence, multiplanar imaging of the brain was performed without the use of IV contrast. Additional [id number]-mgffhx MRA was also performed. COMPARISON: MRA 07/19/2023 FINDINGS: MRI BRAIN WITHOUT CONTRAST: Cortical atrophy with moderately severe chronic microvascular ischemic changes are noted. Posterior fossa appears grossly unremarkable. Intraorbital contents appear grossly unremarkable. No significant paranasal sinus disease. Midline structures appear grossly unremarkable. MRA BRAIN: The superior cerebellar arteries, posterior inferior cerebellar arteries, and the basilar artery are within normal limits. The posterior cerebral arteries are unremarkable. The intracranial segments of the internal carotid arteries once again demonstrates a saccular aneurysm extending off the medial aspect of the supraclinoid left ICA measuring approximately 4 x 4 x 3 mm similar configuration and size when compared to the prior MRI study. There are normal anterior and middle cerebral arteries. Anterior communicating artery is patent. Posterior communicating arteries are present. The deep venous system and dural venous systems appear to be patent. 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 Cortical atrophy with moderately severe chronic microvascular ischemic changes grossly similar to the prior study. Impression dictated by: Barber Trejo Jr., D.O.10/19/2024 3:50 PM Dictation Location: [place] [address] Electronically authenticated by: [id number] Y Date: 10/19/2024 15:50 Dictated By: Barber Trejo M.D. Signed By: 10/19/24 1553 DD/ 155 TD/TT: Practice Performance Manager: [facility] Radiology, Radiologjason treadwell MD - 10/19/2024 [place] [address] Magnetic Resonance Report Signed Patient: DESIRE HIRSCH MR#: [id number] : 1945 Acct:[id number] Age/Sex: 79 / F ADM Date: 10/19/24 Loc: MRI Attending Dr: MARGAUX BOYKIN Ordering Physician: MARGAUX BOYKIN Date of Service: 10/19/24 Procedure(s): MR angio head wo con Accession Number(s): [id number] cc: JUVE COMBS ; MARGAUX BOYKIN [place] [address] Patient Name: DESIRE HIRSCH MRN: [facility]:[id number] date: 1945 Sex: F Assigned Patient Location: MRI Current Patient Location: MRI Accession/Order Number: [id number] Exam Date: 10/19/2024 15:41 Report Date: 10/19/2024 15:50 At the request of: MARGAUX BOYKIN Procedure: MR angio head wo con MR angio head wo con 10/19/2024 3:37 PM SIGN OF SYMPTOMS: Cerebral Aneurysm PROTOCOL: Multisequence, multiplanar imaging of the brain was performed without the use of IV contrast. Additional [id number] MRA was also performed. COMPARISON: MRA 07/19/2023 FINDINGS: MRI BRAIN WITHOUT CONTRAST: Cortical atrophy with moderately severe chronic microvascular ischemic changes are noted. Posterior fossa appears grossly unremarkable. Intraorbital contents appear grossly unremarkable. No significant paranasal sinus disease. Midline structures appear grossly unremarkable. MRA BRAIN: The superior cerebellar arteries, posterior inferior cerebellar arteries, and the basilar artery are within normal limits. The posterior cerebral arteries are unremarkable. The intracranial segments of the internal carotid arteries once again demonstrates a saccular aneurysm extending off the medial aspect of the supraclinoid left ICA measuring approximately 4 x 4 x 3 mm similar configuration and size when compared to the prior MRI study. There are normal anterior and middle cerebral arteries. Anterior communicating artery is patent. Posterior communicating arteries are present. The deep venous system and dural venous systems appear to be patent. 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 Cortical atrophy with moderately severe chronic microvascular ischemic changes grossly similar to the prior study. Impression dictated by: Barber Trejo Jr., D.O.10/19/2024 3:50 PM Dictation Location: [place] [address] Electronically authenticated by: [id number] Y Date: 10/19/2024 15:50 Dictated By: Barber Trejo M.D. Signed By: 10/19/24 1553 DD/ 1550 TD/TT: Practice Performance Manager: [facility] Radiology Study observation (narrative) [facility] MRA Head vessels WO contrast Ordered By: Radiologist Radiology on 10-19-2024 [facility] Work Phone: XR Shoulder - right 2 Viewso n 09-02-2024 Imaging Result: 4 views right shoulder, Grashey/Zanca/outlet/axi llary, taken today and saved to the permanent medical record are reviewed. Superior migration of humeral head. Significant GH joint space narrowing. Spurring off superior glenoid with acetabularization of the acromion. [facility] No Panel Informationon 08-31 MANUEL Marcus T 09/02/2024 8:07 PM L Inj/Asp: R subacromial bursa on 08/31/2024 10:28 AM Indications: pain Details: 25 G needle, ultrasound-guided Medications: 1 mL betamethasone acetate-betamethasone sodium phosphate 6 (3-3) MG/ML Consent was given by the patient. [facility] Michelle Davila, MANUEL T 09/02/2024 8:07 PM L Inj/Asp: R glenohumeral on 08/31/2024 10:27 AM Indications: pain Details: 25 G needle, ultrasound-guided Medications: 1 mL betamethasone acetate-betamethasone sodium phosphate 6 (3-3) MG/ML Consent was given by the patient. [facility] XR Shoulder - right 2 Viewso n 08-31-2024 Radiology Study observation (narrative) [facility] CBC (INCLUDES DIFF/PLT)on Basophils (Bld) [#/Vol] 0.051 10*3/uL Normal 0-200 [facility] Comment on above: Performed By: #### 7 600, 6399, [id number] #### [facility] [place] [address] [employer] Supervisor: Fernando Aguilar MD Basophils/100 WBC (Bld) 1.1 % Normal [facility] Comment on above: Performed By: #### 7 600, 6399, 68088 #### [facility] [place] [address] [employer] Supervisor: Fernando Aguilar MD Eosinophils (Bld) [#/Vol] 0.207 10*3/uL Normal 15-500 [facility] Comment on above: Performed By: #### 7 600, 6399, 41205 #### [facility] [place] [address] [employer] Supervisor: Fernando Aguilar MD Eosinophils/100 WBC (Bld) 4.5 % Normal [facility] Comment on above: Performed By: #### 7 600, 6399, 33529 #### [facility] [place] [address] [employer] [place] Supervisor: Fernando Aguilar MD Erythrocyte distribution width (RBC) [Ratio] 12.8 % Normal 11.0-15.0 [facility] Comment on above: Performed By: #### 7 600, 6399, [id number] #### [facility] [place] [address] [employer] Supervisor: Fernando Aguilar MD Hematocrit (Bld) [Volume fraction] 38.7 % Normal 35.0-45.0 [facility] Comment on above: Performed By: #### 7 600, 6399, 14765 #### [facility] [place] [address] [employer] Supervisor: Fernando Aguilar MD Hemoglobin (Bld) [Mass/Vol] 12.4 g/dL Normal 11.7-15.5 [facility] Comment on above: Performed By: #### 7 600, 6399, 53050 #### [facility] of [place] [address] [employer] Supervisor: Fernando Aguilar MD Lymphocytes (Bld) [#/Vol] 1.352 10*3/uL Normal 850-3900 [facility] Comment on above: Performed By: #### 7 600, 6399, [id number] #### [facility] [place] [address] [employer] Supervisor: Fernando Aguilar MD Lymphocytes/100 WBC (Bld) 29.4 % Normal [facility] Comment on above: Performed By: #### 7 600, 6399, 33709 #### [facility] [place] [address] [employer] Supervisor: Fernando Aguilar MD MCH (RBC) [Entitic mass] 29.7 pg Normal 27.0-33.0 [facility] Comment on above: Performed By: #### 7 600, 6399, 31867 #### [facility] [place] [address] [employer] Supervisor: Fernando Aguilar MD MCHC (RBC) [Mass/Vol] 32.0 g/dL Normal 32.0-36.0 [facility] Comment on above: Result Comment: For adults, a slight decrease in the calculated MCHC value (in the range of 30 to 32 g/dL) is most likely not clinically significant; however, it should be interpreted with caution in correlation with other red cell parameters and the patient's clinical condition. Performed By: #### 7 600, 6399, 61570 #### [facility] [place] [address] [employer] Supervisor: Fernando Aguilar MD MCV (RBC) [Entitic vol] 92.6 fL Normal 80.0-100.0 [facility] Comment on above: Performed By: #### 7 600, 6399, 63069 #### [facility] [place] [address] [employer] Supervisor: Fernando Aguilar MD Monocytes (Bld) [#/Vol] 0.547 10*3/uL Normal 200-950 [facility] Comment on above: Performed By: #### 7 600, 63, 48055 #### [facility] [place] [address] [employer] Supervisor: Fernando Aguilar MD Monocytes/100 WBC (Bld) 11.9 % Normal [facility] Comment on above: Performed By: #### 7 600, 6399, 13169 #### [facility] [place] [address] [employer] Supervisor: Fernando Aguilar MD Neutrophils (Bld) [#/Vol] 2.443 10*3/uL Normal 6405-1077 [facility] Comment on above: Performed By: #### 7 600, 6399, 94767 #### [facility] [place] [address] [employer] Supervisor: Fernando Aguilar MD Neutrophils/100 WBC (Bld) 53.1 % Normal [facility] Comment on above: Performed By: #### 7 600, 6399, 60534 #### [facility] [place] [address] [employer] Supervisor: Fernando Aguilar MD Platelet mean volume (Bld) [Entitic vol] 11.0 fL Normal 7.5-12.5 [facility] Comment on above: Performed By: #### 7 600, 6399, 86623 #### [facility] [place] [address] [employer] Supervisor: Fernando Aguilar MD Platelets (Bld) [#/Vol] 247 10*3/uL Normal 140-400 [facility] Comment on above: Performed By: #### 7 600, 6399, 06235 #### [facility] [address], [address] [place] [address] [employer] Supervisor: Fernando Aguilar MD RBC (Bld) [#/Vol] 4.18 10*6/uL Normal 3.80-5.10 [facility] Comment on above: Performed By: #### 7 600, 6399, 29241 #### [facility] [place] [address] [employer] Supervisor: Fernando Aguilar MD WBC (Bld) [#/Vol] 4.6 10*3/uL Normal 3.8-10.8 [facility] Comment on above: Performed By: #### 7 600, 6399, 42724 #### [facility] [place] [address] [employer] Supervisor: Fernando Aguilar MD [facility] 07-11-2024 Albumin [Mass/Vol] 4.0 g/dL Normal 3.6-5.1 [facility] Comment on above: Performed By: #### 7 600, 6399, 55524 #### [facility] [place] [address] [employer] Supervisor: Fernando Aguilar MD Albumin/Globulin [Mass ratio] 1.6 {ratio} Normal 1.0-2.5 [facility] Comment on above: Performed By: #### 7 600, 6399, 84708 #### [facility] [place] [address] [employer] Supervisor: Fernando Aguilar MD ALP [Catalytic activity/Vol] 54 U/L Normal 37-153 [facility] Comment on above: Performed By: #### 7 600, 6399, 88686 #### [facility] [place] [address] [employer] Supervisor: Fernando Aguilar MD ALT [Catalytic activity/Vol] 12 U/L Normal 6-29 [facility] Comment on above: Performed By: #### 7 600, 6399, 03171 #### [facility] [address], [address] [place] [address] [employer] Supervisor: Fernando Aguilar MD AST [Catalytic activity/Vol] 18 U/L Normal 10-35 [facility] Comment on above: Performed By: #### 7 600, 6399, 96999 #### [facility] [place] [address] [employer] Supervisor: Fernando Aguilar MD Bilirubin [Mass/Vol] 0.6 mg/dL Normal 0.2-1.2 [facility] Comment on above: Performed By: #### 7 600, 6399, 68543 #### [facility] [place] [address] [employer] Supervisor: Fernando Aguilar MD BUN/CREATININE RATIO SEE NOTE: Normal 6-22 [facility] Comment on above: Result Comment: Not Reported: BUN and Creatinine are within reference range. Performed By: #### 7 600, 6399, 86245 #### [facility] [place] [address] [employer] Supervisor: Fernando Aguilar MD Calcium [Mass/Vol] 9.4 mg/dL Normal 8.6-10.4 [facility] Comment on above: Performed By: #### 7 600, 6399, 91810 #### [facility] [place] [address] [employer] Supervisor: Fernando Aguilar MD Chloride [Moles/Vol] 106 mmol/L Normal 98-110 [facility] Comment on above: Performed By: #### 7 600, 6399, 90387 #### [facility] [address] [place] [address] [employer] Supervisor: Fernando Aguilar MD CO2 [Moles/Vol] 27 mmol/L Normal 20-32 [facility] Comment on above: Performed By: #### 7 600, 6399, 74977 #### [facility] [address], [address] [place] [address] [employer] Supervisor: Fernando Aguilar MD Creatinine [Mass/Vol] 0.67 mg/dL Normal 0.60-0.95 [facility] Comment on above: Performed By: #### 7 600, 6399, 34392 #### [facility] [address], [address] [place] [address] [employer] Supervisor: Fernando Aguilar MD GFR/1.73 sq M.predicted among non-blacks MDRD (S/P/Bld) [Vol rate/Area] 88 mL/min/{1.73_m2} Normal > OR = 60 [facility] Comment on above: Performed By: #### 7 600, 6399, 60537 #### [facility] [address], [address] [place] [address] [employer] Supervisor: Fernando Aguilar MD Globulin (S) [Mass/Vol] 2.5 g/dL Normal 1.9-3.7 [facility] Comment on above: Performed By: #### 7 600, 6399, 43845 #### [facility] [address], [address] [place] [address] [employer] Supervisor: Fernando Aguilar MD Glucose [Mass/Vol] 88 mg/dL Normal 65-99 [facility] Comment on above: Result Comment: Fasting reference interval Performed By: #### 7 600, 6399, 73867 #### [facility] [place] [address] [employer] Supervisor: Fernando Aguilar MD Potassium [Moles/Vol] 4.6 mmol/L Normal 3.5-5.3 [facility] Comment on above: Performed By: #### 7 600, 6399, 34487 #### [facility] [address], [address] [place] [address] [employer] Supervisor: Fernando Aguilar MD Protein [Mass/Vol] 6.5 g/dL Normal 6.1-8.1 [facility] Comment on above: Performed By: #### 7 600, 6399, 73539 #### [facility] [address], [address] [place] [address] [employer] Supervisor: Fernando Aguilar MD Sodium [Moles/Vol] 140 mmol/L Normal 135-146 [facility] Comment on above: Performed By: #### 7 600, 6399, 56129 #### [facility] [address], [address] [place] [address] [employer] Supervisor: Fernando Aguilar MD Urea nitrogen [Mass/Vol] 16 mg/dL Normal 7-25 [facility] Comment on above: Performed By: #### 7 600, 6399, 49893 #### [facility] [address], [address] [place] [address] [employer] Supervisor: Fernando Aguilar MD LIPID PANEL, [facility] 12-0 Cholesterol [Mass/Vol] 171 mg/dL Normal <200 [facility] Comment on above: Order Comment: FASTI NG:YES FASTING: YES Performed By: #### 7 600, 6399, 68133 #### [facility] [address], [address] [place] [address] [employer] Supervisor: Fernando Aguilar MD Cholesterol in HDL [Mass/Vol] 67 mg/dL Normal > OR = 50 [facility] Comment on above: Order Comment: FASTI NG:YES FASTING: YES Performed By: #### 7 600, 6399, 68142 #### [facility] [place] [address] [employer] Supervisor: Fernando Aguilar MD Cholesterol in LDL [Mass/Vol] 87 mg/dL Normal [facility] Comment on above: Order Comment: FASTI NG:YES FASTING: YES Result Comment: Refe rence range: <100 Desirable range <100 mg/dL for primary prevention; <70 mg/dL for patients with CHD or diabetic patients with > or = 2 CHD risk factors. LDL-C is now calculated using the Nolan calculation, which is a validated novel method providing better accuracy than the Friedewald equation in the estimation of LDL-C. Danis SS et al. TANA. 2013;310(19): 3704-1101 (http://[email or web address].[email or web address]/faq/[email or web address]) Performed By: #### 7 600, 6399, 50179 #### [facility] [address], [address] [place] [address] [employer] Supervisor: Fernando Aguilar MD Cholesterol.total/C holesterol in HDL [Mass ratio] 2.6 {ratio} Normal <5.0 [facility] Comment on above: Order Comment: FASTI NG:YES FASTING: YES Performed By: #### 7 600, 6399, 77805 #### [facility] [address], [address] [place] [address] [employer] Supervisor: Fernando Aguilar MD NON HDL CHOLESTEROL 104 mg/dL (calc) Normal <130 [facility] Comment on above: Order Comment: FASTI NG:YES FASTING: YES Result Comment: For patients with diabetes plus 1 major ASCVD risk factor, treating to a non-HDL-C goal of <100 mg/dL (LDL-C of <70 mg/dL) is considered a therapeutic option. Performed By: #### 7 600, 6399, 41064 #### [facility] [place] [address] [employer] [place] Supervisor: Fernando Aguilar MD Triglyceride [Mass/Vol] 82 mg/dL Normal <150 [facility] Comment on above: Order Comment: FASTI NG:YES FASTING: YES Performed By: #### 7 600, 6399, 35708 #### [facility] [place] [address] [employer] [place] Supervisor: Fernando Aguilar MD TSH W/REFLEX TO FT4on 2023 TSH W/REFLEX TO FT4 1.05 mIU/L Normal 0.40-4.50 [facility] Comment on above: Performed By: #### 7 600, 6399, 52976 #### [facility] [place] [address], [address] [place] [address] [employer] [place] Supervisor: Fernando Aguilar MD MRA HEAD WO CONon 07-02-2022 MRA HEAD WO CON EXAMINATION: MRA HEA Abiola WO CON HISTORY: Cerebral arterial aneurysm COMPARISON: MRA head 06/30/2021 TECHNIQUE: MR angiography was performed in the usual manner. Multiplanar reconstructed 2D and 3D images of the cerebral arteries were created and interpreted. FINDINGS: INTERNAL CAROTIDS: 5 x 4 x 3 mm aneurysm projecting medially from the left parasellar carotid artery. ANTERIOR CEREBRALS: No visible stenosis or aneurysm. MIDDLE CEREBRALS: No visible stenosis or aneurysm. POSTERIOR CEREBRALS: No visible stenosis or aneurysm. BASILAR: No visible stenosis or aneurysm. VERTEBRALS: No visible stenosis or aneurysm. OTHER: Age consistent atrophy and moderate chronic small vessel ischemic changes. IMPRESSION: 1. Grossly stable saccular aneurysm projecting medially from the left parasellar carotid artery, 5 x 4 x 3 mm (this has remained stable in the axial plane 4 x 3 mm, but due to different slice selection is well seen on today's coronal sequence which measures 5 mm). 2. Age consistent atrophy and chronic small vessel ischemic changes. Electronically authenticated by: DMITRI LO Date: 2022-07-02 09:45 Normal [facility] CBC AUTO DIFFon 07-01-2022 BASO # 0.0 103/ul Normal 0.0-0.1 [facility] Comment on above: Performed By: #### C BC #### [facility] [address] [place] [address] [address] Gladis Nagel Basophils/100 WBC (Bld) 0.7 % Normal 0.2-2.0 [facility] Comment on above: Performed By: #### C BC #### [facility] [address] [place] [address] [address] Gladis Nagel EO # 0.2 103/ul Normal 0.0-0.7 [facility] Comment on above: Performed By: #### C BC #### [facility] [address] [place] [address] [address] Gladis Nagel Eosinophils/100 WBC (Bld) 3.5 % Normal 0.9-7.0 [facility] Comment on above: Performed By: #### C BC #### [facility] [address] [place] [address] Dr. Gladis Nagel Erythrocyte distribution width (RBC) [Ratio] 13.7 % Normal 11.0-15.0 [facility] Comment on above: Performed By: #### C BC #### [facility] [address] [place] [address] Dr. Gladis Nagel Hematocrit (Bld) [Volume fraction] 37.0 % Normal 36.0-48.0 [facility] Comment on above: Performed By: #### C BC #### [facility] [address] [place] [address] Dr. Gladis Nagel Hemoglobin (Bld) [Mass/Vol] 11.9 g/dL Critically low 12.0-16.0 [facility] Comment on above: Performed By: #### C BC #### [facility] [address] [place] [address] Dr. Gladis Nagel IG # 0.02 10e3/ul Normal 0.00-0.03 [facility] Comment on above: Performed By: #### C BC #### [facility] [address] [place] [address] Dr. Gladis Nagel IG % 0.4 % Normal 0.0-0.5 [facility] Comment on above: Performed By: #### C BC #### [facility] [address] [place] [address] Dr. Gladis Nagel LYMPH # 1.7 103/ul Normal 1.2-3.8 [facility] Comment on above: Performed By: #### C BC #### [facility] [address] [place] [address] Dr. Gladis Nagel Lymphocytes/100 WBC (Bld) 30.6 % Normal 20.5-60.0 [facility] Comment on above: Performed By: #### C BC #### [facility] [address] [place] [address] Dr. Gladis Nagel MANUAL DIFF REQ NO Normal [facility] Comment on above: Performed By: #### C BC #### [facility] [address] [place] [address] Dr. Gladis Nagel MCH (RBC) [Entitic mass] 29.2 pg Normal 26.7-34.0 [facility] Comment on above: Performed By: #### C BC #### [facility] [address] [place] [address] Dr. Gladis Nagel MCHC (RBC) [Mass/Vol] 32.2 g/dL Normal 29.9-35.2 [facility] Comment on above: Performed By: #### C BC #### [facility] [address] [place] [address] Dr. Gladis Nagel MCV (RBC) [Entitic vol] 90.7 fL Normal 81.0-99.0 [facility] Comment on above: Performed By: #### C BC #### [facility] [address] [place] [address] Dr. Gladis Nagel MONO # 0.6 103/ul Normal 0.3-0.8 [facility] Comment on above: Performed By: #### C BC #### [facility] [address] [place] [address] Dr. Gladis Nagel Monocytes/100 WBC (Bld) 11.9 % Normal 1.7-12.0 [facility] Comment on above: Performed By: #### C BC #### [facility] [address] [place] [address] Dr. Gladis Nagel NEUT # 2.9 103/ul Normal 1.4-6.5 [facility] Comment on above: Performed By: #### C BC #### [facility] [address] [place] [address] Dr. Gladis Nagel Neutrophils/100 WBC (Bld) 52.9 % Normal 43.0-75.0 [facility] Comment on above: Performed By: #### C BC #### [facility] [address] [place] [address] Dr. Gladis Nagel Platelet mean volume (Bld) [Entitic vol] 9.8 fL Normal 9.5-13.5 [facility] Comment on above: Performed By: #### C BC #### [facility] [address] [address] [address] Gladis Nagel PLT 227 103/ul Normal 150-450 [facility] Comment on above: Performed By: #### C BC #### [facility] [address] [place] [address] [address] Gladis Nagel RBC 4.08 106/ul Critically low 4.20-5.40 [facility] Comment on above: Performed By: #### C BC #### [facility] [address] [place] [address] [address] Gladis Nagel WBC 5.4 103/ul Normal 4.0-11.0 [facility] Comment on above: Performed By: #### C BC #### [facility] [address] [place] [address] Dr. Gladis Nagel LIPID PROFILEon 07-01-2022 CHOL-HDL RATIO NORM SEE BELOW Normal [facility] Comment on above: Result Comment: 3.3 - 4.4 LOW RISK 4.4 - 7.1 AVERAGE RISK 7.1 - 11.0 MODERATE RISK >11.0 HIGH RISK Performed By: #### L IPID, TSH #### [facility] [address] [place] [address] Dr. Gladis Nagel Cholesterol [Mass/Vol] 145 mg/dL Normal <=200 [facility] Comment on above: Performed By: #### L IPID, TSH #### [facility] [address] [address] [address] Gladis Nagel Cholesterol in HDL [Mass/Vol] 68 mg/dL Critically high 40-60 [facility] Comment on above: Performed By: #### L IPID, TSH #### [facility] [address] [place] [address] [address] Gladis Nagel Cholesterol in LDL [Mass/Vol] 66.6 mg/dL Normal [facility] Comment on above: Performed By: #### L IPID, TSH #### [facility] [address] [place] [address] [address] Gladis Nagel Cholesterol.total/C holesterol in HDL [Mass ratio] 2.1 {ratio} Normal [facility] Comment on above: Performed By: #### L IPID, TSH #### [facility] [address] [place] [address] [address] Gladis Nagel HDL NORMAL > or = 60 mg/dl - LO W CARDIOVASCULAR RISK <40 mg/dl - HIGH CARDIOVASCULAR RISK Normal [facility] Comment on above: Performed By: #### L IPID, TSH #### [facility] [address] [address] [address] Gladis Nagel LDL CALC NORMAL SEE BELOW Normal [facility] Comment on above: Result Comment: <100 mg/dl OPTIMAL 100 - 129 mg/dl NEAR OR ABOVE OPTIMAL 130 - 159 mg/dl BORDERLINE HIGH 160 - 189 mg/dl HIGH >190 mg/dl VERY HIGH Performed By: #### L IPID, TSH #### [facility] [address] [place] [address] [address] Gladis Nagel Triglyceride [Mass/Vol] 52 mg/dL Normal <=150 [facility] Comment on above: Performed By: #### L IPID, TSH #### [facility] [address] [place] [address] [address] Gladis Nagel VLDL CALC 10.4 mg/dL Normal [facility] Comment on above: Performed By: #### L IPID, TSH #### [facility] [address] [address] [address] Gladis Nagel PROF 14(COMP METB)on 022 Albumin [Mass/Vol] 3.4 g/dL Normal 3.4-5.0 [facility] Comment on above: Performed By: #### C MP #### [facility] [address] [address] [address] Gladis Nagel Albumin/Globulin [Mass ratio] 1.0 {ratio} Normal [facility] Comment on above: Performed By: #### C MP #### [facility] [address] [place] [address] [address] Gladis Nagel ALP [Catalytic activity/Vol] 69 U/L Normal 46-116 [facility] Comment on above: Performed By: #### C MP #### [facility] [address] [address] [address] Gladis Nagel ALT [Catalytic activity/Vol] 22 U/L Normal 14-59 [facility] Comment on above: Performed By: #### C MP #### [facility] [address] [place] [address] Dr. Gladis Nagel Anion gap [Moles/Vol] 9.3 mmol/L Normal [facility] Comment on above: Performed By: #### C MP #### [facility] [address] [place] [address] [address] Gladis Nagel AST [Catalytic activity/Vol] 16 U/L Normal 15-37 [facility] Comment on above: Performed By: #### C MP #### [facility] [address] [place] [address] Dr. Gladis Nagel Bilirubin [Mass/Vol] 0.5 mg/dL Normal 0.2-1.0 [facility] Comment on above: Performed By: #### C MP #### [facility] [address] [place] [address] Dr. Gladis Nagel Calcium [Mass/Vol] 9.0 mg/dL Normal 8.5-10.1 [facility] Comment on above: Performed By: #### C MP #### [facility] [address] [place] [address] Dr. Gladis Nagel Chloride [Moles/Vol] 106 mmol/L Normal 98-107 [facility] Comment on above: Performed By: #### C MP #### [facility] [address] [place] [address] Dr. Gladis Nagel CO2 [Moles/Vol] 29.8 mmol/L Normal 21.0-32.0 [facility] Comment on above: Performed By: #### C MP #### [facility] [address] [place] [address] Dr. Gladis Nagel Creatinine [Mass/Vol] 0.65 mg/dL Normal 0.55-1.02 [facility] Comment on above: Performed By: #### C MP #### [facility] [address] [place] [address] Dr. Gladis Nagel EGFR-AF SWAZI >60 Normal >=60 [facility] Comment on above: Performed By: #### C MP #### [facility] [address] [address] [address] Gladis Nagel EGFR-NON AF SWAZI >60 Normal >=60 [facility] Comment on above: Performed By: #### C MP #### [facility] [address] [address] [address] Gladis Nagel Globulin (S) [Mass/Vol] 3.4 g/dL Normal [facility] Comment on above: Performed By: #### C MP #### [facility] [address] [address] [address] Gladis Nagel Glucose [Mass/Vol] 93 mg/dL Normal 74-106 [facility] Comment on above: Performed By: #### C MP #### [facility] [address] [address] [address] Gladis Nagel Potassium [Moles/Vol] 4.1 mmol/L Normal 3.5-5.1 [facility] Comment on above: Performed By: #### C MP #### [facility] [address] [address] [address] Gladis Nagel Protein [Mass/Vol] 6.8 g/dL Normal 6.4-8.2 [facility] Comment on above: Performed By: #### C MP #### [facility] [address] [address] [address] Gladis Nagel Sodium [Moles/Vol] 141 mmol/L Normal 136-145 [facility] Comment on above: Performed By: #### C MP #### [facility] [address] [address] [address] Gladis Nagel Urea nitrogen [Mass/Vol] 17.0 mg/dL Normal 7.0-18.0 [facility] Comment on above: Performed By: #### C MP #### [facility] [address] [address] [address] Gladis Nagel Urea nitrogen/Creatinine [Mass ratio] 26.2 mg/mg Normal [facility] Comment on above: Performed By: #### C MP #### [facility] [address] [place], [place] [address] Dr. Gladis Nagel TSHon 07-01-2022 TSH 1.817 uIU/mL Normal 0.358-3.740 [facility] Comment on above: Performed By: #### L IPID, TSH #### [facility] [address] [place], [place] [address] Dr. Gladis Nagel XR DEXA BONE DENSITYon 07-01 XR DEXA BONE DENSITY EXAMINATION: XR DEXA BONE DENSITY, 07/01/2022 8:36 AM EST HISTORY: Senile osteoporosis COMPARISON: DEXA bone densitometry 05/16/2020 TECHNIQUE: Dual-energy X-ray absorptiometry (DEXA) bone density study performed for the axial skeleton. FINDINGS: FOREARM ANALYSIS: Average bone mineral density is 0.293 g/cm2. T-score (standard deviation relative to young adult mean): -5.9 . -22.7% change since prior study. HIP ANALYSIS: Lowest bone mineral density is within the femoral trochanter, 0.503 g/cm2. T-score (standard deviation relative to young adult mean): -3.0 . -3.2% change since prior study. IMPRESSION: [employer] Classification: Osteoporosis - High Fracture Risk Electronically authenticated by: DMITRI LO Date: 2022-07-01 11:47 Normal [facility] Neurosurgery Office/Clinic N oteon 10-16-2019 Neurosurgery Office/Clinic Note Chief Complaint Patient states being seen for back History of Present Illness Six month post op follow up appointment s/p Left L4-5-S1 hemilaminotomy and foraminotomy 05/10/2019 She does not recall if the steroid taper helped her. She did PT but did not have traction. She saw Dr Alvarado but was doing well enough at that time that there was no intervention recommended. She is happy she had surgery. 07/18/2019 visit: Three month post op follow up appointment s/p Left L4-5-S1 hemilaminotomy and foraminotomy 05/10/2019 Desire was doing really well until about 2 weeks ago when she started to develop some left proximal leg pain intermittently. No numbness. It is much more mild than preop and the sciatica seems different. The right sided low back pain is gone that she spoke of 2 months ago. 06/08/2019 visit: One month post op follow up appointment s/p Left L4-5-S1 hemilaminotomy and foraminotomy 05/10/2019 No leg pain. She was doing perfect until she was lifting some groceries one week ago. She developed some right sided back pain but no leg pain. She does not wish to do PT at this time. [1] [1] Review of Systems General Weakness: No Cardiovascular EENMT Gastrointestinal Genitourinary Hematologic/Lymphatic Musculoskeletal Back pain: Yes Neurological Numbness: No Psychiatric Respiratory Skin Physical Exam Vitals & Measurements BP: 156/82 HT: 187.14 cm WT: 61.3 kg DOSE WT: 61.3 kg BMI: 17.5 Additional Vitals Body Mass Index Measured: 17.5 kg/m2 Peripheral Pulse Rate: 80 bpm General: Alert and oriented, well nourished, no acute distress Eye: PERRL, EOMI, normal conjunctiva HENT: Normocephalic, clear tympanic membranes, normal hearing, moist oral mucosa, no scleral icterus, no sinus tenderness Neck: Supple, non-tender, no carotid bruits, no JVD, no lymphadenopathy Lungs: Clear to auscultation and percussion, non-labored respiration Heart: Normal rate, regular rhythm, no murmur, gallop or edema Abdomen: Soft, non-tender, non-distended, normal bowel sounds, no masses]. Musculoskeletal: [Normal range of motion and strength, no tenderness or swelling Skin: Skin is warm, dry and pink, no rashes or lesions Psychiatric: Cooperative, appropriate mood and affect Neurologic: EOMI, PERRLA, TML, FS, No drift 5/5 filomena UE strength 5/5 filomena LE strength incision looks great Clonus absent [2] [2] Assessment/Plan Status post lumbar discectomy Assessment: 1. s/p Left L4-5-S1 hemilaminotomy and foraminotomy 05/10/2019 2. pre op pelvis mri with only mild bilateral hip arthritis 3. prominent scoliosis 4. advanced age at 74 5. 06/28/2019 MRA: 4x3mm stable Left parasellar ICA aneurysm Plan: Follow up as needed. I gave her the name of 2 interventional radiologists in [place] she can see for her intracranial aneurysm. Problem List/Past Medical History Ongoing Anxiety Arthritis Back pain Cerebral aneurysm Frequency of urination HTN - Hypertension Hyperlipidemia Hypothyroid Leg cramps Osteoporosis Seasonal allergies Snores Vertigo Weakness Historical DVT (deep vein thrombosis) in Procedure/Surgical History Bilateral age-related cataracts varicose veins Extraction of wisdom tooth (1958) Tubal ligation (1974) REMOVAL OF THYROID (2013) Laminectomy Lumbar (Left) (05/10/2019) Medications Citracal + D, BID Colace 100 mg oral capsule, 100 mg, Oral, BID, Not taking Fish Oil, Oral levothyroxine 50 mcg (0.05 mg) oral tablet lisinopril 10 mg oral tablet multivitamin, Daily Parlier 5 mg-325 mg oral tablet, 1 tabs, Oral, q4hr, PRN, Not taking Parlier 5 mg-325 mg oral tablet, 1 tabs, Oral, q6hr, PRN, Not taking Percocet 5/325 oral tablet, 1 tabs, Oral, q4hr, PRN, Not takin/2 tab bid Adbongo, Oral, Daily pregabalin 25 mg oral capsule, 25 mg, 1 caps, Oral, HS (at bedtime), Not taking TheraTears, 1 drops, Eye-Both, BID, PRN Tylenol 8 Hour 650 mg oral tablet, extended release, 1300 mg, 2 tabs, Oral, q8hr, PRN Allergies sulfa drugs (Itching) Social History Alcohol Current, Beer, Wine, 1-2 times per month, Alcohol use interferes with work or home: No. Employment/School Retired Exercise Home/Environment Lives with Spouse. Living situation: Home/Independent. Nutrition/Health Regular, Caffeine intake amount: COFFEE 3 CUPS/DAY- [place] DIET COKE. Sleeping concerns: Yes. Sexual History of sexual abuse: No. Substance Abuse Denies All Tobacco Former smoker, quit more than 30 days ago Use:. Family History Heart disease: Mother. Diagnostic Results stable lumbar xrays [1] Neurosurgery Office Visit Note; Paulino Soriano MD 07/18/2019 13:47 EST [2] Neurosurgery Office Visit Note; Paulino Soriano MD 07/18/2019 13:47 EST [3] Neurosurgery Office Visit Note; Paulino Soriano MD 07/18/2019 13:47 EST Electronically signed by _ Paulino Soriano MD 10/16/19 15:00 EDT Electronically signed by _ Delisa Ram Génesis 10/16/2019 14:54 EDT [facility] XR Spine Lumbosacral 2/3 Vie ws w/Bendingon 07-19-2019 XR Spine Lumbosacral 2/3 Views w/Bending Lumbar spine radiographs on 07/18/2019 Clinical History: Back pain Comparison: Lumbar spine radiographs on 05/04/2019 Findings: 4 views of the lumbar spine were obtained. Severe S-shaped scoliosis of the thoracolumbar spine. Grossly unremarkable vertebral body heights given the limitation of osteopenia and scoliosis. Severe disc space narrowing and endplate degenerative changes at L2/L3. Moderate endplate degenerative changes in the other levels. Severe multilevel facet arthropathy. Slightly limited range of motion on flexion and extension. Impression: S-shaped scoliosis of thoracolumbar spine without contrast multilevel endplate and facet degenerative changes. Final Dictated by: Akua Astorga MD Dictated DT/TM: 07/19/2019 8:36 am Signed by: Akua Astorga MD Signed (Electronic Signature): 07/19/2019 8:42 am (If Report Is Signed, Electronically Signed in Other Vendor System) [facility] Neurosurgery Office/Clinic N oteon 07-18-2019 Neurosurgery Office/Clinic Note Chief Complaint Patient states follow up from surgery History of Present Illness Three month post op follow up appointment s/p Left L4-5-S1 hemilaminotomy and foraminotomy 05/10/2019 Desire was doing really well until about 2 weeks ago when she started to develop some left proximal leg pain intermittently. No numbness. It is much more mild than preop and the sciatica seems different. The right sided low back pain is gone that she spoke of 2 months ago. 06/08/2019 visit: One month post op follow up appointment s/p Left L4-5-S1 hemilaminotomy and foraminotomy 05/10/2019 No leg pain. She was doing perfect until she was lifting some groceries one week ago. She developed some right sided back pain but no leg pain. She does not wish to do PT at this time. [1] Review of Systems General Weakness: Yes Cardiovascular EENMT Gastrointestinal Genitourinary Hematologic/Lymphatic Musculoskeletal Back pain: Yes Neurological Numbness: No Psychiatric Respiratory Skin Physical Exam Vitals & Measurements BP: 132/84 HT: 187.14 cm WT: 61.3 kg DOSE WT: 61.3 kg BMI: 17.5 Additional Vitals Body Mass Index Measured: 17.5 kg/m2 Peripheral Pulse Rate: 80 bpm General: Alert and oriented, well nourished, no acute distress Eye: PERRL, EOMI, normal conjunctiva HENT: Normocephalic, clear tympanic membranes, normal hearing, moist oral mucosa, no scleral icterus, no sinus tenderness Neck: Supple, non-tender, no carotid bruits, no JVD, no lymphadenopathy Lungs: Clear to auscultation and percussion, non-labored respiration Heart: Normal rate, regular rhythm, no murmur, gallop or edema Abdomen: Soft, non-tender, non-distended, normal bowel sounds, no masses]. Musculoskeletal: [Normal range of motion and strength, no tenderness or swelling Skin: Skin is warm, dry and pink, no rashes or lesions Psychiatric: Cooperative, appropriate mood and affect Neurologic: EOMI, PERRLA, TML, FS, No drift 5/5 filomena UE strength 5/5 filomena LE strength incision looks great Clonus absent [2] Assessment/Plan Status post lumbar discectomy Assessment: 1. s/p Left L4-5-S1 hemilaminotomy and foraminotomy 05/10/2019 2. pre op pelvis mri with only mild bilateral hip arthritis 3. prominent scoliosis 4. advanced age at 74 Plan: 1. medrol dose pack 2. norco 3. PT to include inversion table/lumbar traction 4. Return to see Dr. Alvarado to see if there is something he can offer. I will refer her to a scoliosis specialist if she returns. Problem List/Past Medical History Ongoing Anxiety Arthritis Back pain Cerebral aneurysm Frequency of urination HTN - Hypertension Hyperlipidemia Hypothyroid Leg cramps Osteoporosis Seasonal allergies Snores Vertigo Weakness Historical DVT (deep vein thrombosis) in Procedure/Surgical History Bilateral age-related cataracts varicose veins Extraction of wisdom tooth (1958) Tubal ligation (1974) REMOVAL OF THYROID (2013) Laminectomy Lumbar (Left) (05/10/2019) Medications Citracal + D, BID Colace 100 mg oral capsule, 100 mg, Oral, BID, Not taking Fish Oil, Oral levothyroxine 50 mcg (0.05 mg) oral tablet lisinopril 10 mg oral tablet multivitamin, Daily Parlier 5 mg-325 mg oral tablet, 1 tabs, Oral, q4hr, PRN Percocet 5/325 oral tablet, 1 tabs, Oral, q4hr, PRN, Not takin/2 tab bid [facility], Oral, Daily pregabalin 25 mg oral capsule, 25 mg, 1 caps, Oral, HS (at bedtime) TheraTears, 1 drops, Eye-Both, BID, PRN Tylenol 8 Hour 650 mg oral tablet, extended release, 1300 mg, 2 tabs, Oral, q8hr, PRN Allergies sulfa drugs (Itching) Social History Alcohol Current, Beer, Wine, 1-2 times per month, Alcohol use interferes with work or home: No. Employment/School Retired Exercise Home/Environment Lives with Spouse. Living situation: Home/Independent. Nutrition/Health Regular, Caffeine intake amount: COFFEE 3 CUPS/DAY- OCC DIET COKE. Sleeping concerns: Yes. Sexual History of sexual abuse: No. Substance Abuse Denies All Tobacco Former smoker, quit more than 30 days ago Use:. Family History Heart disease: Mother. Diagnostic Results lumbar xrays: prominent scoliosis; no intersegmental instability [1] Neurosurgery Office Visit Note; Paulino Soriano MD 06/08/2019 09:24 EDT [2] Neurosurgery Office Visit Note; Paulino Soriano MD 06/08/2019 09:24 EDT [3] Neurosurgery Office Visit Note; Paulino Soriano MD 06/08/2019 09:24 EDT Electronically signed by _ Paulino Soriano MD 07/18/19 14:09 EST Electronically signed by _ Delisa Ram 07/18/2019 13:48 EST [facility] Provider Anu 07-18-2019 Provider Letter Juve Brown MD [address] [place] [address] Re: Desire Hirsch Date of Visit: 07/18/2019 Dear Juve Combs, Thank You for referring Desire Hirsch to our office for care. Attached you will find my office note. Please Contact our office if you have any questions or concerns. Sincerely, Paulino Soriano MD The following document(s) were included in the letter: July 18, 2019 13:47:36 EST - (07/18/2019) Neurosurgery Office Visit Note [facility] Neurosurgery Office/Clinic N oteon 06-08-2019 Neurosurgery Office/Clinic Note Chief Complaint Patient states coming for back History of Present Illness One month post op follow up appointment s/p Left L4-5-S1 hemilaminotomy and foraminotomy 05/10/2019 No leg pain. She was doing perfect until she was lifting some groceries one week ago. She developed some right sided back pain but no leg pain. She does not wish to do PT at this time. Review of Systems General Weakness: No Cardiovascular EENMT Gastrointestinal Genitourinary Hematologic/Lymphatic Musculoskeletal Back pain: Yes Neurological Numbness: No Psychiatric Respiratory Skin Physical Exam Vitals & Measurements BP: 122/82 HT: 157.48 cm WT: 61.0 kg DOSE WT: 61.0 kg BMI: 24.6 Additional Vitals Body Mass Index Measured: 24.6 kg/m2 Peripheral Pulse Rate: 72 bpm General: Alert and oriented, well nourished, no acute distress Eye: PERRL, EOMI, normal conjunctiva HENT: Normocephalic, clear tympanic membranes, normal hearing, moist oral mucosa, no scleral icterus, no sinus tenderness Neck: Supple, non-tender, no carotid bruits, no JVD, no lymphadenopathy Lungs: Clear to auscultation and percussion, non-labored respiration Heart: Normal rate, regular rhythm, no murmur, gallop or edema Abdomen: Soft, non-tender, non-distended, normal bowel sounds, no masses]. Musculoskeletal: [Normal range of motion and strength, no tenderness or swelling Skin: Skin is warm, dry and pink, no rashes or lesions Psychiatric: Cooperative, appropriate mood and affect Neurologic: EOMI, PERRLA, TML, FS, No drift 5/5 filomena UE strength 5/5 filomena LE strength incision looks great Clonus absent Assessment/Plan Status post lumbar discectomy Assessment: 1. s/p Left L4-5-S1 hemilaminotomy and foraminotomy 05/10/2019 2. pre op pelvis mri with only mild bilateral hip arthritis 3. prominent scoliosis 4. advanced age at 74 Plan: Follow up in 2 months with lumbar xrays. She was instructed to call if she changes her mind about PT. She was instructed to call if she develops radiculopathy and would benefit from a steroid taper. She will discuss her back pain further with dr. alvarado. Ordered: hydrocodone-acetaminophe n, 1 tabs, Oral, q4hr, PRN, # 42 tabs, 0 Refill(s) XR Spine Lumbosacral 2/3 Views w/Bending Problem List/Past Medical History Ongoing Anxiety Arthritis Back pain Cerebral aneurysm Frequency of urination HTN - Hypertension Hyperlipidemia Hypothyroid Leg cramps Osteoporosis Seasonal allergies Snores Vertigo Weakness Historical DVT (deep vein thrombosis) in Procedure/Surgical History Bilateral age-related cataracts varicose veins Extraction of wisdom tooth (1958) Tubal ligation (1974) REMOVAL OF THYROID (2013) Laminectomy Lumbar (Left) (05/10/2019) LOW BACK DISK SURGERY (05/10/2019) SPINAL DISK SURGERY ADD-ON (05/10/2019) Medications Citracal + D, BID Colace 100 mg oral capsule, 100 mg, Oral, BID Fish Oil, Oral levothyroxine 50 mcg (0.05 mg) oral tablet lisinopril 10 mg oral tablet multivitamin, Daily Parlier 5 mg-325 mg oral tablet, 1 tabs, Oral, q4hr, PRN Percocet 5/325 oral tablet, 1 tabs, Oral, q4hr, PRN, Still taking, not as prescribed: 1/2 tab bid Adbongo, Oral, Daily pregabalin 25 mg oral capsule, 25 mg, 1 caps, Oral, HS (at bedtime) TheraTears, 1 drops, Eye-Both, BID, PRN Tylenol 8 Hour 650 mg oral tablet, extended release, 1300 mg, 2 tabs, Oral, q8hr, PRN Allergies sulfa drugs (Itching) Social History Alcohol Current, Beer, Wine, 1-2 times per month, Alcohol use interferes with work or home: No. Employment/School Retired Exercise Home/Environment Lives with Spouse. Living situation: Home/Independent. Nutrition/Health Regular, Caffeine intake amount: COFFEE 3 CUPS/DAY- OCC DIET COKE. Sleeping concerns: Yes. Sexual History of sexual abuse: No. Substance Abuse Denies All Tobacco Former smoker, quit more than 30 days ago Use:. Family History Heart disease: Mother. Diagnostic Results none Electronically signed by _ Paulino Soriano MD 06/08/19 09:31 EDT [facility] Provider Anu 06-08-2019 Provider Letter Juve Brown MD [address] [place] [address] Re: Desire Torrey Date of Visit: 06/08/2019 Dear Juve Combs, Thank You for referring Isaak Hirschon Becky to our office for care. Attached you will find my office note. Please Contact our office if you have any questions or concerns. Sincerely, Paulino Soriano MD The following document(s) were included in the letter: June 08, 2019 09:24:29 EDT - (06/08/2019) Neurosurgery Office Visit Note [facility] Neurosurgery Office/Clinic N erastoeesme 05-24-2019 Neurosurgery Office/Clinic Note Chief Complaint Patient states back PAtient is present for a post op after her 10-2 Lt L4-S1 Hemilaminotomy on 05-10 History of Present Illness Desire is here for initial post operative visit on behalf of left L4-L5-S1 hemilaminotomy and foraminotomy on 05/10/19. She reports feeling 100% better to date. She does have some left leg achiness after prolonged laying that resolves with ambulation. She is using 1/2 tab of Percocet in the am and hs. She denies any fever, chills, n/v or incisional concerns. She is ambulating independently. Review of Systems as above Physical Exam Vitals & Measurements BP: 130/74 HT: 157.5 cm WT: 61.4 kg DOSE WT: 61.4 kg BMI: 24.75 Additional Vitals Body Mass Index Measured: 24.75 kg/m2 Peripheral Pulse Rate: 68 bpm BP Position/Location: Sitting, Left arm General: [Alert and oriented, well nourished, no acute distress]. Eye: [normal conjunctiva, no scleral icterus]. HENT: [normocephalic, atraumatic, oral mucosa pink and moist, dentition intact]. Pulmonary: [non-labored respiration] Skin: [Normal temperature, turgor, and texture; no rashes]. Psychiatric: [Appropriate judgment and insight, appropriate mood and affect]. NEURO EXAM: Pupils are equal bilaterally. Face is symmetric. Hearing is intact. tongue is midline. Motor: Upper Extremity Strength: 5/5 Lower Extremity Strength: 5/5 Gait: Posture is normal. Gait is steady. Heel, toe intact. Incision: Well healed, well approximated; no erythema, edema or exudate No significant incisional tenderness bill removed Assessment: 1. left L4-L5-S1 hemilaminotomy and foraminotomy on 05/10/19 2. prominent scoliosis 3. advanced age Plan: 1. no lifting greater than 8-10lbs, do not submerge incision 2. convert to OTC pain control as able 3. f/u with Dr. Soriano in 2 weeks Assessment/Plan 1. S/P lumbar discectomy Problem List/Past Medical History Ongoing Anxiety Arthritis Back pain Cerebral aneurysm Frequency of urination HTN - Hypertension Hyperlipidemia Hypothyroid Leg cramps Osteoporosis Seasonal allergies Snores Vertigo Weakness Historical DVT (deep vein thrombosis) in Procedure/Surgical History Bilateral age-related cataracts varicose veins Extraction of wisdom tooth (1958) Tubal ligation (1974) REMOVAL OF THYROID (2013) Laminectomy Lumbar (Left) (05/10/2019) LOW BACK DISK SURGERY (05/10/2019) SPINAL DISK SURGERY ADD-ON (05/10/2019) Medications Citracal + D, BID Colace 100 mg oral capsule, 100 mg, Oral, BID Fish Oil, Oral levothyroxine 50 mcg (0.05 mg) oral tablet lisinopril 10 mg oral tablet multivitamin, Daily Percocet 5/325 oral tablet, 1 tabs, Oral, q4hr, PRN, Still taking, not as prescribed: 1/2 tab bid [facility], Oral, Daily pregabalin 25 mg oral capsule, 25 mg, 1 caps, Oral, HS (at bedtime) TheraTears, 1 drops, Eye-Both, BID, PRN Tylenol 8 Hour 650 mg oral tablet, extended release, 1300 mg, 2 tabs, Oral, q8hr, PRN Allergies sulfa drugs (Itching) Social History Alcohol Current, Beer, Wine, 1-2 times per month, Alcohol use interferes with work or home: No. Employment/School Retired Exercise Home/Environment Lives with Spouse. Living situation: Home/Independent. Nutrition/Health Regular, Caffeine intake amount: COFFEE 3 CUPS/DAY- OCC DIET COKE. Sleeping concerns: Yes. Sexual History of sexual abuse: No. Substance Abuse Denies All Tobacco Former smoker, quit more than 30 days ago Use:. Family History Heart disease: Mother. Electronically signed by _ Abisai ENRIQUEMichelle Nazia 05/24/19 11:06 EDT Electronically signed by _ Mel Goode 05/24/2019 10:51 EDT [facility] Provider Letteron 05-24-2019 Provider Letter (Inserted Image. Denice ble to display) Juve Combs, Re: Desire Hirsch Date of Visit: 05/24/2019 Dear Juve Combs, Thank you for referring Desire to my office. Attached you will find my office note. Please let me know if you have any questions or concerns. Sincerely, Michelle Barone, PIPELAYING FITTER [facility] [address] [place] [address] The following document(s) were included in the letter: May 24, 2019 10:51:10 EDT - (05/24/2019) Neurosurgery Office Visit Note [facility] Inpatient Clinical Summaryon 05-11-2019 Inpatient Clinical Summary [facility] [address] [place] [address] [facility] [address] [place] [address] Clinical Summary Person Information Name: Desire Hirsch Age: 74 Years : 1945 Sex: Female PCP: Garret CORBIN MD, Juve Gore Marital Status: PCP: [phone] Race: White Ethnicity: Not or Language: [place] Visit Id: Visit Reason: Speciality: Acuity: Enc Type: Observation Med Service: Surgery Arrival: 05/10/2019 06:11:08 Discharge: Dispo Type: Address: [address] [place] [address] [facility] [address] Diagnosis: 1:Status post lumbar discectomy Discharged To: Home Treatments: Devices/Equipment: Professional Skilled Services: Special Services and Community Resources: Mode of Discharge Transportation: Discharge Orders Diet Instruction Regular home diet Discharge Special Instructions You may drive when you are no longer taking pain medication Discharge Special Instructions Do not resume Aspirin, Plavix (Clopidogrel), Coumadin (Warfarin/Jantoven) and other blood thinners for 7 days, but you may resume all other medications. Discharge Special Instructions You may shower, but keep incision site dry for one week. Discharge Wound Care Remove dressing 48hr after discharge Allergies sulfa drugs (Itching) Functional Status: Sensory Deficits: Other: glasses filomena hearing aides and top dentures History of Falls: None Mobility Assistance Prior to Admission: ADLs: Minimal assistance Gait: Steady Ambulation Assist: Assistive Device: Gait belt Special Orthopedic Devices: Current Level of Assistance for Self-Care/Mobility: Cognitive Status: Orientation: Orientation Assessment Oriented x 4 Level of Consciousness: Alert Characteristics of Speech: Clear Aspiration Risk: None Affect/Behavior: Appropriate, Calm, Cooperative Laboratory or Other Results This Visit (last charted value for your 05/10/2019 visit) Chemistry 05/10/2019 6:49 AM Potassium Lvl: 4.0 mmol/L -- Normal range between ( 3.4 and 4.8 ) Blood Bank 05/04/2019 10:11 AM ABO/Rh: O POS Antibody Screen: Negative [facility]SC Diagnostic Radiology 05/10/2019 9:48 AM XR Spine Lumbosacral 1 View in OR: XR Spine Lumbosacral 1 View in OR Measurements: Height: Weight: Blood Pressure: 97 mmHg / BMI: Respiratory: Respirations: Unlabored, Quiet Respiratory Symptoms: None Cardiovascular: Heart Sounds: Heart Rhythm: Regular Gastrointestinal: GI Symptoms: Bowel Sounds: Present Vital Signs: Temp Axillary: 36.6 degC Temp Temporal Artery: 36.1 degC Temp Oral: 37.2 degC Temp Rectal: Apical Heart Rate: Peripheral Pulse Rate: 99 bpm Heart Rate: 66 bpm Respiratory Rate: 16 br/min Diet Diet: Feeding Tolerance:Other: nausea Appetite: Good Tony Assessment: 20 Procedures Bilateral age-related cataracts Extraction of wisdom tooth (1958) Immunizations No Immunizations Documented This Visit HERE ARE THE MEDICATION CHANGES THAT OCCURRED DURING YOUR HOSPITAL STAY New Medications Printed Prescriptions docusate (Colace 100 mg oral capsule) 100 Milligram Oral (given by mouth) 2 times a day. Refills: 0. Last Dose: _ oxyCODONE-acetaminophen (Percocet 5/325 oral tablet) 1 Tabs Oral (given by mouth) every 4 hours as needed moderate pain [4-6 on pain scale] for 7 Days. Refills: 0. Last Dose: _ Medications That Have Not Changed Other Medications acetaminophen (Tylenol 8 Hour 650 mg oral tablet, extended release) 2 Tabs Oral (given by mouth) every 8 hours as needed as needed for fever. Last Dose: _ bifidobacterium-lactobac illus (Adbongo) Oral (given by mouth) every day. Last Dose: _ calcium-vitamin D (Citracal + D) 2 times a day. Last Dose: _ levothyroxine (levothyroxine 50 mcg (0.05 mg) oral tablet) TAKE 1 TABLET BY MOUTH EVERY DAY IN THE MORNING ON EMPTY STOMACH. Last Dose: _ lisinopril (lisinopril 10 mg oral tablet) TAKE 1 TABLET BY MOUTH EVERY DAY. Last Dose: _ multivitamin every day. Last Dose: _ ocular lubricant (TheraTears) 1 Drops Both eyes 2 times a day as needed dry eyes. Last Dose: _ omega-3 polyunsaturated fatty acids (Fish Oil) Oral (given by mouth). Last Dose: _ pregabalin (pregabalin 25 mg oral capsule) 1 Capsules Oral (given by mouth) once a day (at bedtime). Last Dose: _ PROVIDED FOR YOU IS A LIST OF YOUR PATIENT?S CURRENT MEDICATIONS Printed Prescriptions docusate (Colace 100 mg oral capsule) 100 Milligram Oral (given by mouth) 2 times a day. Refills: 0. oxyCODONE-acetaminophen (Percocet 5/325 oral tablet) 1 Tabs Oral (given by mouth) every 4 hours as needed moderate pain [4-6 on pain scale] for 7 Days. Refills: 0. Other Medications acetaminophen (Tylenol 8 Hour 650 mg oral tablet, extended release) 2 Tabs Oral (given by mouth) every 8 hours as needed as needed for fever. bifidobacterium-lactobac illus (Adbongo) Oral (given by mouth) every day. calcium-vitamin D (Citracal + D) 2 times a day. levothyroxine (levothyroxine 50 mcg (0.05 mg) oral tablet) TAKE 1 TABLET BY MOUTH EVERY DAY IN THE MORNING ON EMPTY STOMACH. lisinopril (lisinopril 10 mg oral tablet) TAKE 1 TABLET BY MOUTH EVERY DAY. multivitamin every day. ocular lubricant (TheraTears) 1 Drops Both eyes 2 times a day as needed dry eyes. omega-3 polyunsaturated fatty acids (Fish Oil) Oral (given by mouth). pregabalin (pregabalin 25 mg oral capsule) 1 Capsules Oral (given by mouth) once a day (at bedtime). Care Team Members: Attending Physician: Christie FERNANDEZ, Paulino Ervin Consulting Physician: Referring Physician: Follow up: With: Address: When: Michelle Barone CNP [address] [place] [address] [phone] In 2 weeks Comments: Appointment Scheduled Type Location Start Finish State Post Op Visit [facility] 05/24/2019 10:30:00 05/24/2019 11:00:00 [facility]irmed [facility] [facility] Noteon 05-11-2019 Neurosurgery Progress Note Subjective left leg pain is gone Objective dressing looks good Vitals & Measurements T: 36.6 ?C (Axillary) T: 37.2 ?C (Oral) T: 36.1 ?C (Temporal Artery) HR: 66 (Monitored) RR: 16 BP: 97/46 SpO2: 98% HT: 157.5 cm WT: 61.4 kg DOSE WT: 61.5 kg BMI: 24.79 Additional Vitals Peripheral Pulse Rate: 99 bpm Lab Results Microbiology No qualifying data available. Diagnostic Results Diagnostic Radiology XR Spine Lumbosacral 1 View in OR 05/10/19 14:08:00 impression: The single lateral fluoroscopic image shows a posterior approach and surgical instrumentation at L4 and L5 and S1 posterior element levels. Signed By: Candiod Cross MD Computed Tomography No qualifying data available. Ultrasound No qualifying data available. Magnetic Resonance Imaging No qualifying data available. Nuclear Medicine No qualifying data available. Physical Exam 5/5 filomena LE strength Medications Inpatient acetaminophen, 650 mg, Oral, q4hr, PRN Artificial Tears, 1 drops, Eye-Both, BID, PRN Calcitrate with D, 1 tabs, Oral, BID ceFAZolin, 2 g, 50 mL, IV Piggyback, q8hr Colace, 100 mg, Oral, BID Dilaudid, 1 mg, 1 mL, IV Push, q2hr, PRN levothyroxine, 50 mcg, Oral, Daily lisinopril, 10 mg, Oral, HS (at bedtime) magnesium hydroxide 8% oral suspension, 30 mL, Oral, TID multivitamin, 1 tabs, Oral, Daily Normal Saline Flush 0.9% injectable solution, 10 mL, IV Push, As Indicated, PRN Normal Saline Flush 0.9% injectable solution, 10 mL, IV Push, BID Percocet 5/325 oral tablet, 2 tabs, Oral, q4hr, PRN Percocet 5/325 oral tablet, 1 tabs, Oral, q4hr, PRN pregabalin, 25 mg, Oral, HS (at bedtime) Sodium Chloride 0.9% intravenous solution 1,000 mL, 1000 mL, IV Zofran, 4 mg, 2 mL, IV Push, q4hr, PRN Assessment/Plan 1. Status post lumbar discectomy assessment: pod 1 left L4-5-S1 hemilaminotomy Plan: d/c home Orders: acetaminophen, 650 mg, Oral, Tab, q4hr, PRN mild pain [1-3 on pain scale], First Dose: 05/10/19 11:04:00 EDT, Dispense From Location: [facility] calcium-vitamin D, 1 tabs, Oral, Tab, BID, First Dose: 05/10/19 11:22:00 EDT, Dispense From Location: [facility] ceFAZolin, 2 g, IV Piggyback, Soln-IV, q8hr, infuse over 0.5 hr, First Dose: 05/10/19 11:04:00 EDT, Dispense From Location: [facility], Prophylaxis- Pre/Post-Op docusate, 100 mg, Oral, Cap, BID, First Dose: 05/10/19 21:00:00 EDT, Dispense From Location: [facility] HYDROmorphone, 1 mg, IV Push, Injection, q2hr, PRN severe pain [7-10 on pain scale], First Dose: 05/10/19 11:04:00 EDT, Dispense From Location: [facility] levothyroxine, 50 mcg, Oral, Tab, Daily, First Dose: 05/11/19 6:00:00 EDT, Dispense From Location: [facility] lisinopril, 10 mg, Oral, Tab, HS (at bedtime), First Dose: 05/10/19 21:00:00 EDT, Dispense From Location: [facility] magnesium hydroxide, 30 mL, Oral, Susp, TID, First Dose: 05/10/19 14:00:00 EDT, Dispense From Location: [facility] multivitamin, 1 tabs, Oral, Tab, Daily, First Dose: 05/10/19 17:00:00 EDT, Dispense From Location: [facility] ocular lubricant, 1 drops, Eye-Both, Soln-Ophth, BID, PRN dry eyes, First Dose: 05/10/19 11:20:00 EDT, Dispense From Location: [facility] ondansetron, 4 mg, IV Push, Injection, q4hr, PRN nausea, First Dose: 05/10/19 11:04:00 EDT, Dispense From Location: [facility] oxyCODONE-acetaminophen, 2 tabs, Oral, Tab, q4hr, PRN severe pain [7-10 on pain scale], First Dose: 05/10/19 11:04:00 EDT, Dispense From Location: [facility] oxyCODONE-acetaminophen, 1 tabs, Oral, Tab, q4hr, PRN moderate pain [4-6 on pain scale], First Dose: 05/10/19 11:04:00 EDT, Dispense From Location: [facility] pregabalin, 25 mg, Oral, Cap, HS (at bedtime), First Dose: 05/10/19 21:00:00 EDT, Dispense From Location: [facility] sodium chloride, 10 mL, IV Push, Injection, As Indicated, PRN flush, First Dose: 05/10/19 11:04:00 EDT, Dispense From Location: [facility]6T sodium chloride, 10 mL, IV Push, Injection, BID, First Dose: 05/10/19 21:00:00 EDT, Dispense From Location: [facility]EIM-5I Sodium Chloride 0.9% intravenous solution 1,000 mL, 1,000 mL, Soln-IV, IV, 100 mL/hr, Start Date: 05/10/19 11:04:00 EDT, Dispense From Location: 4 South, 1.62, m2 Ambulate Below the Knee Graduated Compression Stocking Consult to Assistant Spa Director Ice Pack Application Incentive Spirometry Nursing to Encourage Intake and Output Mechanical Compression Device Neurological Checks Notify Provider Notify Provider Notify Provider Occupational Therapy Evaluation and Treatment Inpatient Oxygen Therapy Patient Tray Peripheral IV Insert and Maintain Physical Therapy Evaluation and Treatment Inpatient Place in Observation Pulse Oximetry Continuous Regular Diet Resuscitation Status Treatment Instruction Vital Signs Weight Electronically signed by _ Christie FERNANDEZ, Paulino Ervin 05/11/19 08:36 EDT Normal [facility] Operative Reporton 9 Operative Report Indication for Surge ry 1. back pain and left leg pain 2. pelvis mri with only mild bilateral hip arthritis 3. lumbar mri: Left lateral recess stenosis is severe at L4-5-S1; grade one L5-S1 anterolisthesis L5-s1; moderate left convex scoliosis centered at L3 4. prominent scoliosis 5. advanced age at 73 Preoperative Diagnosis 1. back pain and left leg pain 2. pelvis mri with only mild bilateral hip arthritis 3. lumbar mri: Left lateral recess stenosis is severe at L4-5-S1; grade one L5-S1 anterolisthesis L5-s1; moderate left convex scoliosis centered at L3 4. prominent scoliosis 5. advanced age at 73 Postoperative Diagnosis 1. back pain and left leg pain 2. pelvis mri with only mild bilateral hip arthritis 3. lumbar mri: Left lateral recess stenosis is severe at L4-5-S1; grade one L5-S1 anterolisthesis L5-s1; moderate left convex scoliosis centered at L3 4. prominent scoliosis 5. advanced age at 73 Operation Left L4-5-S1 hemilaminotomy and foraminotomy Surgeon(s) Paulino Soriano MD Psychiatric Specialist Stella PUTNAM Anesthesia general endotracheal Estimated Blood Loss minimal Urine Output no portillo Findings stenosis Specimen(s) none Complications none Technique The patient was brought to the OR under the care of anesthesia and after intubation was carefully turned prone on the lucila table with all pressure points padded. The back was prepped and draped and I created an incision with a scalpel and dissected to the left of midline at L4-5-S1 level and placed my sandy retractor at L4-5. I confirmed my level with the c arm image and drilled a hemilaminotomy with the 6 extra coarse deidra bit and removed yellow ligament with the 3 punch. I removed the medial facet with the 3 and 4 punch and performed a foraminotomy on the left at L4-5 with the foraminotomy punch. I decompressed proximal L5 as well as L4 as it rounded the pedicle and within the foramen. Next I moved the retractor down to L5-s1 on the left. I drilled a left L5-S1 hemilaminotomy with the 6 extra coarse deidra bit and removed yellow ligament with the 3 punch. I removed the medial facet with the 3 and 4 punch and performed a foraminotomy on the left at L5-s1 with the foraminotomy punch. I decompressed proximal s1 as well as L5 as it rounded the pedicle and within the foramen. S1 appeared to be the most compressed nerve from the L4-S1 levels. I irrigated the back and obtained hemostasis and placed vanco powder deep and superficial to fascia. I closed fascia with interrupted 0 vicryl and closed subcutaneous tissue with inverted interrupted 0 vicryl and closed skin with bill. All counts were correct and there were no complications. This surgical procedure was assisted by my physician?s conservation assistant. Her presence was needed throughout the case for positioning the surgical instruments as well as primarily assisting me through the procedure. Due to the complexity of condition, the skill set of a neurosurgical physician conservation assistant was needed throughout the case. During the surgical case, the ophthalmology surgical technician was working the back table and was not available for assistance. Sponge/Needle Count all accouted for Fluid Count 700cc Electronically signed by _ Paulino Soriano MD 05/10/19 10:34 EDT Normal [facility] Potassiumon 05-10-2019 Potassium [Moles/Vol] 4.0 mmol/L Normal 3.4-4.8 [facility] Comment on above: Performed By: #### K ####[place] [id number] [place] [id number] XR Spine Lumbosacral 1 View in ORon 05-10-2019 XR Spine Lumbosacral 1 View in OR Intraoperative fluoroscopy and one lateral view lumbosacral spine HISTORY: L4-S1 lumbar laminectomy Technique and radiation: 2 seconds of fluoroscopy time. One spot fluoroscopic image. 0.909 mGy of radiation. Report and impression: The single lateral fluoroscopic image shows a posterior approach and surgical instrumentation at L4 and L5 and S1 posterior element levels. Final Dictated by: Candido Cross MD Dictated DT/TM: 05/10/2019 2:08 pm Signed by: Candido Cross MD Signed (Electronic Signature): 05/10/2019 2:09 pm (If Report Is Signed, Electronically Signed in Other Vendor System) Normal [facility] XR Spine Lumbosacral 2/3 Vie ws w/Bendingon 05-05-2019 XR Spine Lumbosacral 2/3 Views w/Bending Procedure: AP, neutral lateral, flexion lateral, and extension lateral views of the lumbar spine. Clinical Information: 73-year-old female with left leg pain. Preop for lumbar surgery 05/10/2019. Comparison: Lumbar spine and left hip radiographs from [facility] 11/14/2018. Findings: Bones: Roughly 57 degrees levoscoliosis of the lumbar spine with an apex at L3 with associated substantial dilatation. Roughly grade 1 right lateral subluxation at L1-2 and left lateral subluxation at L3-4 and L4-5. Roughly grade 1 posterior spondylolisthesis at T12-L1 and L3-4 and anterolisthesis at L1-2, L4-5, and L5-S1. No gross dynamic subluxation. No gross acute fracture or aggressive abnormality. Intervertebral discs: Severe right lateral L2-3 and L3-4 degenerative disc disease. Facet joints: Grossly severe L3-4 through L5-S1 degenerative osteoarthrosis. Soft tissues: Unremarkable. IMPRESSION: Advanced multilevel degenerative changes and spondylolistheses. Severe levoscoliosis. No gross instability. Final Dictated by: Jim Bolanos MD Dictated DT/TM: 05/05/2019 3:15 pm Signed by: Jim Bolanos MD Signed (Electronic Signature): 05/05/2019 3:23 pm (If Report Is Signed, Electronically Signed in Other Vendor System) Normal [facility] .UA Microscp Aon 05-04-2019 UA Mucus Present Abnormal Absent [facility] Comment on above: Performed By: #### C [id number] #### [place] [address] UA RBC Quant 3 /HPF Normal 0-5 [facility] Comment on above: Performed By: #### C [id number] #### [place] [address] UA Squepi Cells Quant <1 Normal 0-29 [facility] Comment on above: Performed By: #### C [id number] #### [place] [address] UA WBC Quant 0 /HPF Normal 0-5 [facility] Comment on above: Performed By: #### C [id number] #### [place] [id number] .eGFRon 05-04-2019 eGFR AA >60 Normal >=60 [facility] Comment on above: Result Comment: Resu lt = 0-14.9 mL/min/1.73 m2 Kidney failure or Dialysis Result = 15-29 mL/min/1.73 m2 Severe decrease in GFR Result = 30-59 mL/min/1.73 m2 Moderate decrease in GFR Result >= 60 mL/min/1.73 m2 Normal or increased GFR Performed By: #### E GFR #### [place] [address] eGFR Non-AA >60 Normal >=60 [facility] Comment on above: Result Comment: Resu lt = 0-14.9 mL/min/1.73 m2 Kidney failure or Dialysis Result = 15-29 mL/min/1.73 m2 Severe decrease in GFR Result = 30-59 mL/min/1.73 m2 Moderate decrease in GFR Result >= 60 mL/min/1.73 m2 Normal or increased GFR Chronic kidney disease is defined as either kidney damage or GFR < 60 mL/min/1.73 m2 for >= 3 months. Kidney damage is defined as pathologic abnormalities or markers of damage including abnormalities in blood or urine tests or imaging studies. This GFR is NOT used for medication dosing. Performed By: #### E GFR #### [address] [address] ABO/Rhon 05-04-2019 ABO/Rh SD 05/10/2019 DCon: 0 ABO/Rh: O POS Normal [facility] Comment on above: Performed By: #### A BORH ####[facility] (DEFAULT)[address] [place], [place] [id number] [address] [address] ABSC Autoon 05-04-2019 ABSC Auto Negative Normal [facility] Comment on above: Performed By: #### A SA ####[address] [address] CBC w/ Diffon 05-04-2019 Erythrocyte distribution width (RBC) [Ratio] 14.1 % Normal 11.6-14.8 [facility] Comment on above: Performed By: #### C BC #### [address] [address] Hematocrit (Bld) [Volume fraction] 39.2 % Normal 36.0-46.0 [facility] Comment on above: Performed By: #### C BC #### [address] [address] Hemoglobin (Bld) [Mass/Vol] 13.0 g/dL Normal 12.0-16.0 [facility] Comment on above: Performed By: #### C BC #### [address] [address] MCH (RBC) [Entitic mass] 29.7 pg Normal 27.0-35.0 [facility] Comment on above: Performed By: #### C BC #### [address] [address] MCHC (RBC) [Mass/Vol] 33.1 % Normal 31.0-37.0 [facility] Comment on above: Performed By: #### C BC #### [address] [address] MCV (RBC) [Entitic vol] 89.7 fL Normal 80.0-100.0 [facility] Comment on above: Performed By: #### C BC #### [address] [address] Platelet mean volume (Bld) [Entitic vol] 8.1 fL Normal 6.7-10.6 [facility] Comment on above: Performed By: #### C BC #### [address] [address] Platelets (Bld) [#/Vol] 225 x10*3/mcL Normal 150-350 [facility] Comment on above: Performed By: #### C BC #### [address] [address] RBC (Bld) [#/Vol] 4.37 x10*6/mcL Normal 3.80-5.20 [facility] Comment on above: Performed By: #### C BC #### [address] [address] WBC (Bld) [#/Vol] 6.1 x10*3/mcL Normal 4.5-11.0 [facility] Comment on above: Performed By: #### C BC #### [address] [address] CMPon 05-04-2019 Albumin [Mass/Vol] 4.1 g/dL Normal 3.2-4.9 [facility] Comment on above: Result Comment: [facility] Laboratory updated the methodology used for albumin testing on 03/16/18. Albumin measurement was performed using a bromcresol purple dye-binding assay. Performed By: #### C OMP #### [address] [address] Albumin/Globulin [Mass ratio] 1.2 {ratio} Normal 1.1-2.2 [facility] Comment on above: Performed By: #### C OMP #### [address] [address] Alk Phos 55 IU/L Normal 32-91 [facility] Comment on above: Performed By: #### C OMP #### [address] [address] ALT [Catalytic activity/Vol] 16 U/L Normal 14-54 [facility] Comment on above: Performed By: #### C OMP #### [address] [address] Anion gap [Moles/Vol] 14 mmol/L Normal 7-17 [facility] Comment on above: Performed By: #### C OMP #### [address] [address] AST [Catalytic activity/Vol] 21 U/L Normal 15-41 [facility] Comment on above: Performed By: #### C OMP #### [address] [address] Bili Total 0.8 mg/dL Normal 0.3-1.2 [facility] Comment on above: Performed By: #### C OMP #### [address] [address] Calcium [Mass/Vol] 9.9 mg/dL Normal 8.5-10.3 [facility] Comment on above: Performed By: #### C OMP #### [address] [address] Chloride [Moles/Vol] 106 mmol/L Normal 98-110 [facility] Comment on above: Performed By: #### C OMP #### [address] [address] CO2 [Moles/Vol] 27 mmol/L Normal 22-32 [facility] Comment on above: Performed By: #### C OMP #### [address] [place] [address] Creatinine [Mass/Vol] 0.67 mg/dL Normal 0.44-1.03 [facility] Comment on above: Performed By: #### C OMP #### [address] [address] Glucose [Mass/Vol] 104 mg/dL Normal 74-118 [facility] Comment on above: Performed By: #### C OMP #### [address] [address] Potassium [Moles/Vol] 5.0 mmol/L High 3.4-4.8 [facility] Comment on above: Performed By: #### C OMP #### [address] [address] Protein [Mass/Vol] 7.6 g/dL Normal 6.5-8.1 [facility] Comment on above: Performed By: #### C OMP #### [address] [address] Sodium [Moles/Vol] 142 mmol/L Normal 133-142 [facility] Comment on above: Performed By: #### C OMP #### [address] [address] Urea nitrogen [Mass/Vol] 18 mg/dL Normal 8-26 [facility] Comment on above: Performed By: #### C OMP #### [address] [address] Urea nitrogen/Creatinine [Mass ratio] 26.9 mg/mg High 10.0-20.0 [facility] Comment on above: Performed By: #### C OMP #### [address] [address] Diff Autoon 05-04-2019 Baso Absolute 0.0 x10*3/mcL Normal 0.0-0.2 [facility] Comment on above: Performed By: #### . Automated Diff #### [address] [address] Basophils/100 WBC (Bld) 0.7 % Normal 0.0-1.5 [facility] Comment on above: Performed By: #### . Automated Diff #### [address] [address] Eos Absolute 0.1 x10*3/mcL Normal 0.0-0.4 [facility] Comment on above: Performed By: #### . Automated Diff #### [address] [address] Eosinophils/100 WBC (Bld) 1.2 % Normal 0.0-5.4 [facility] Comment on above: Performed By: #### . Automated Diff #### [address] [address] Lymphocytes (Bld) [#/Vol] 1.3 x10*3/mcL Normal 1.0-4.8 [facility] Comment on above: Performed By: #### . Automated Diff #### [address] [address] Lymphocytes/100 WBC (Bld) 20.6 % Low 27.2-40.8 [facility] Comment on above: Performed By: #### . Automated Diff #### [address] [address] [place] Absolute 0.6 x10*3/mcL Normal 0.1-1.1 [facility] Comment on above: Performed By: #### . Automated Diff #### [address] [address] Monocytes/100 WBC (Bld) 9.9 % Normal 3.7-11.9 [facility] Comment on above: Performed By: #### . Automated Diff #### [address] [address] Neutro Absolute 4.1 x10*3/mcL Normal 1.8-7.7 [facility] Comment on above: Performed By: #### . Automated Diff #### [address] [address] Neutro Auto 67.6 % Normal 47.2-70.8 [facility] Comment on above: Performed By: #### . Automated Diff #### [address] [address] PTon 05-04-2019 INR Coag (PPP) [Relative time] 0.9 {INR} Normal <=3.5 [facility] Comment on above: Result Comment: INR has no normal range. INR Therapeutic range is: 2.0-3.0 (AF, CVA, TIAs, DVT prophylaxis, acute DVT) 2.5-3.5 ([facility] heart valves, recurrent thrombosis/emboli) Performed By: #### P TINR #### [place] [id number] PT Coag (PPP) [Time] 10.0 s Normal 9.2-11.7 [facility] Comment on above: Performed By: #### P TINR #### [address] [address] PTTon 05-04-2019 aPTT Coag (Bld) [Time] 22.5 s Normal 20.6-28.0 [facility] Comment on above: Performed By: #### P TT #### [address] [address] UA w Culture if Indon 2018 Color (U) Yellow Normal [facility] Comment on above: Performed By: #### U CI #### [address] [address] Glucose (U) [Mass/Vol] Negative Normal Negative [facility] Comment on above: Performed By: #### U CI #### [address] [address] Ketones Ql (U) Negative Normal Negative [facility] Comment on above: Performed By: #### U CI #### [address] [address] UA Blood Small Abnormal Negative [facility] Comment on above: Performed By: #### U CI #### [address] [address] UA Clarity Clear Normal [facility] Comment on above: Performed By: #### U CI #### [address] [address] UA Leukocyte Esterase Negative Normal Negative [facility] Comment on above: Performed By: #### U CI #### [address] [address] UA Nitrite Negative Normal Negative [facility] Comment on above: Performed By: #### U CI #### [address] [address] UA pH 6.0 Normal 4.5 - 7.8 [facility] Comment on above: Performed By: #### U CI #### [address] [address] UA Protein Negative Normal Negative [facility] Comment on above: Performed By: #### U CI #### [address] [address] UA Source Clean Catch Normal [facility] Comment on above: Performed By: #### U CI #### [address] [address] UA Spec Grav 1.016 Normal 1.003-1.035 [facility] Comment on above: Performed By: #### U CI #### [address] [address] UA Urobilinogen 0.2 mg/dL Normal 0.2 - 1.0 [facility] Comment on above: Performed By: #### U CI #### [address] [address] Urobilinogen Qn (U) Negative Normal Negative [facility] Comment on above: Performed By: #### U CI #### [address] [address] Neurosurgery Office/Clinic Shirlene triplett 04-26-2019 Neurosurgery Office/Clinic Note Chief Complaint back pain with pain radiation down leg History of Present Illness Very nice 73 year old female with prominent scoliosis here to discuss back pain and left leg pain. She is sent here by Dr. Alvarado. She also tells me that she follows with a neurosurgeon at [facility] for an intracranial aneurysm but that it has been inconvenient to follow up there. It has been since 2017 since it was imaged. Low back pain: longstanding problem, 10+ years, activity dependent pain, 1-8/10 pain. Left leg pain: present 6 months, daily, mostly constant pain, 2-10/10 pain, without numbness. No loss of bowel or bladder control. Failed conservative measures: pain management, TJ, chiro, nsaid, gabapentin. Review of Systems General Weakness: Yes Cardiovascular Chest pain/pressure: No EENMT Hearing loss: No Vision Changes: No Gastrointestinal Constipation: No Diarrhea: No Nausea: No Vomiting: No Genitourinary Frequency: No Urgency: No Urinary Incontinence: No Hematologic/Lymphatic Musculoskeletal Back pain: Yes Neurological Numbness: Yes Psychiatric Anxiety: Yes Depression: No Respiratory Cough: No Shortness_of_breath: No Snoring: Yes Wheezing: No Skin Physical Exam Vitals & Measurements BP: 172/72 HT: 157.48 cm WT: 61.0 kg DOSE WT: 61.0 kg BMI: 24.6 Additional Vitals Body Mass Index Measured: 24.6 kg/m2 Peripheral Pulse Rate: 80 bpm General: Alert and oriented, well nourished, no acute distress Eye: PERRL, EOMI, normal conjunctiva HENT: Normocephalic, clear tympanic membranes, normal hearing, moist oral mucosa, no scleral icterus, no sinus tenderness Neck: Supple, non-tender, no carotid bruits, no JVD, no lymphadenopathy Lungs: Clear to auscultation and percussion, non-labored respiration Heart: Normal rate, regular rhythm, no murmur, gallop or edema Abdomen: Soft, non-tender, non-distended, normal bowel sounds, no masses]. Musculoskeletal: [Normal range of motion and strength, no tenderness or swelling Skin: Skin is warm, dry and pink, no rashes or lesions Psychiatric: Cooperative, appropriate mood and affect Neurologic: EOMI, PERRLA, TML, FS, No drift 5/5 filomena UE strength 5/5 filomena LE strength 2+ UE reflexes 2+ LE reflexes Clonus absent Assessment/Plan Acquired scoliosis Lumbar radiculopathy Stenosis of lateral recess of lumbar spine Assessment: 1. back pain and left leg pain 2. pelvis mri with only mild bilateral hip arthritis 3. lumbar mri: Left lateral recess stenosis is severe at L4-5-S1; grade one L5-S1 anterolisthesis L5-s1; moderate left convex scoliosis centered at L3 4. prominent scoliosis 5. advanced age at 73 Plan: I offered her a left L4-5-S1 hemilaminotomy and foraminotomy. Described risks include bleeding, infection, neurological injury, blindness, stroke, , csf leak, continued pain, medical complication, development of instability, and need for further procedures or surgeries. She wants to think it over and will get back to me. Problem List/Past Medical History Ongoing Cerebral aneurysm HTN - Hypertension Hyperlipidemia Hypothyroid Osteoporosis Vertigo Historical No qualifying data Procedure/Surgical History REMOVAL OF THYROID Tubal ligation varicose veins Medications Citracal + D, BID Fish Oil, Oral gabapentin 100 mg oral capsule levothyroxine 50 mcg (0.05 mg) oral tablet lisinopril 10 mg oral tablet multivitamin, Daily Adbongo, Oral, Daily Tylenol 8 Hour 650 mg oral tablet, extended release, 1300 mg, 2 tabs, Oral, q8hr, PRN Allergies sulfa drugs (Itching) Social History Alcohol Current, Beer, Wine, 1-2 times per year Sexual History of sexual abuse: No. Substance Abuse Denies All Tobacco Former smoker, quit more than 30 days ago Use:. Cigarettes, 15 year(s). Family History Heart disease: Mother. Diagnostic Results Lumbar mri: Left lateral recess stenosis is severe at L4-5-S1; grade one L5-S1 anterolisthesis L5-s1; moderate left convex scoliosis centered at L3 Electronically signed by _ Paulino Soriano MD 04/26/19 14:06 EDT [facility] Provider Letteron 04-26-2019 Provider Letter (Inserted Image. Denice ble to display) Juve Combs II MD [address] [place] [address] Re: Desire Hirsch : 1945 Date of Visit: 04/26/2019 Dear Juve Combs, Thank you for referring Desire Hirsch to our office. Attached you will find my office visit note. Please contact our office if you have any questions or concerns. Sincerely, Paulino Soriano MD The following document(s) were included in the letter: April 26, 2019 13:51:24 EDT - (04/26/2019) Neurosurgery Office Visit Note [facility] Progress Note-Physicianon Progress Note-Physician Patient: DESIRE HIRSCH Age: 73 years Sex: Female : 1945 Associated Diagnoses: None Author: Gonzales Fermin Jr, DO Preoperative Information Anesthesia results Review of Systems Cardiovascular: Negative. Respiratory: Negative. Health Status Allergies: Allergic Reactions (Selected) Severity Not Documented Latex- Unknown. Sulfamethoxazole- Unknown. Current medications: (Selected) Documented Medications Documented Centrum Silver: 1 tab, Oral, Daily, Refill(s) 0, Prophylaxis Citracal + D: 1 tab, Oral, Daily, Refill(s) 0, Prophylaxis CoQ10: 300 mg, Oral, Daily, Refills(s) 0, Prophylaxis LORazepam 0.5 mg Tab: 0.5 mg = 1 tab(s), Oral, TID, PRN as needed for anxiety, Refills(s) 0 Osteo-Guard: 1 cap, Oral, Daily, Refill(s) 0, Prophylaxis [facility] Colon Health: 1 cap(s), Oral, Daily, Refill(s) 0, Prophylaxis levothyroxine: 50 microgram, Oral, Daily, Refills(s) 0, Thyroid lisinopril: 10 mg, Oral, Daily, Refills(s) 0, High blood pressure, Home Medications (8) Active Centrum Silver 1 tab, Oral, Daily Citracal + D 1 tab, Oral, Daily CoQ10 300 mg, Oral, Daily levothyroxine 50 microgram, Oral, Daily lisinopril 10 mg, Oral, Daily LORazepam 0.5 mg Tab 0.5 mg = 1 tab(s), PRN, Oral, TID Osteo-Guard 1 cap, Oral, Daily [facility] 1 cap(s), Oral, Daily Problem list: No problem items selected or recorded. Histories Past Medical History: No active or resolved past medical history items have been selected or recorded. Social History Social & Psychosocial Habits No Data Available . Physical Examination Airway: Mallampati classification: II (soft palate, fauces, uvula visible). Respiratory: Lungs are clear to auscultation. Cardiovascular: Regular rhythm. Neurologic: Alert, Oriented. Plan [place] [employer] Anesthesiologists (ASA) physical status classification: Class II. Anesthetic Preoperative Plan Anesthesia: General. . Anesthetic plan, risks, benefits, and alternatives discussed with the patient and/or family. Communication: face to face with (patient 5 minutes, Patient educated on smoking cesstation). [facility] Comment on above: Result Comment: Elec tronically Signed By: Gonzales Fermin Jr, DO\.br\Date and Time Signed: 07/05/18 08:30 EST Coding Summary.on 07-04-2018 Coding Summary. CODING DATE: 018 FINAL [facility] STATUS: Home (Routine DC) PAYOR: Medicare APC DESCRIPTION 5311 Level 1 Lower GI Procedures ADMIT DX: REASON FOR VISIT DX: R14.1 Gas pain FINAL DX: PRINCIPAL: K57.30 Diverticulosis of large intestine without perforation or abscess without bleeding SECONDARY: R14.1 Gas pain PYMT PROC APC STAT DESCRIPTION DOCTOR NAME DATE 76722 5311 T Colonoscopy, flexible; Lam ROSARIO MD 06/29/2018 diagnostic, including collection of specimen(s) by brushing or washing, when performed (separate procedure) 71633 Anesthesia for lower Gonzales Fermin Jr, DO 06/29/2018 intestinal endoscopic procedures, endoscope introduced distal to duodenum; not otherwise specified NOTE: The code number assigned matches the documented diagnosis and / or procedure in the patient's chart. However, the narrative phrase printed from the coding software may appear abbreviated, or result in slightly different terminology. Revised Coded By: Suzie Mcnally Revised Date Saved: 07/04/2018 04:08 pm [facility] Main OR Intraoperative Recor don 07-01-2018 Main OR Intraoperative Record IntraOp Document Type FT Summary Primary Physician: Lam ROSARIO MD Finalized Date/Time: 07/01/18 10:45:00 Pt. Name: DESIRE HIRSCH/Sex: 1945 Female Med Rec #: [id number] Physician: Lam ROSARIO MD Financial #: [id number] Pt. Type: O Room/Bed: / Admit/Disch: 06/29/18 06:54:28 - 06/29/18 23:59:59 Institution: Case Times FT Entry 1 Patient Times In Room 06/29/18 07:44:00 Out Room 06/29/18 08:03:00 Procedure Times Start 06/29/18 07:49:00 Stop 06/29/18 08:00:00 Anesthesia Times Start 06/29/18 07:44:00 Stop 06/29/18 08:03:00 Time at [place] 06/29/18 07:54:00 Last Modified By: Callie Juarez CST 06/29/18 08:03:27 General Comments: 07/01/18 Chart opened to review and send charges Joseph Juarez CST Case Attendance FT Entry 1 Entry 2 Entry 3 Case Attendee Zander Bliss DO, Gonzales ROSARIO MD, Lam Carias CANE PUSHER/SA, Zara Role Performed Anesthesiologist of Surgeon - Primary Scrub - Primary Record Time In 06/29/18 07:44:00 06/29/18 07:44:00 06/29/18 07:44:00 Time Out 06/29/18 08:03:00 06/29/18 08:03:00 06/29/18 08:03:00 Procedure COLONOSCOPY(.) COLONOSCOPY(.) COLONOSCOPY(.) Comments Last Modified By: Juan PITTS, Melinda Martinez RN, Melinda Martinez RN, Melinda Ruiz 06/29/18 08:03:29 06/29/18 08:03:29 06/29/18 08:03:29 Entry 4 Case Attendee Melinda Martinez RN Role Performed Balance Staff Inspector - Primary Time In 06/29/18 07:44:00 Time Out 06/29/18 08:03:00 Procedure COLONOSCOPY(.) Comments Last Modified By: Melinda Martinez RN 06/29/18 08:03:29 Perioperative Protocols FT Pre-Care Text: Implements protective measures prior to operative or invasive procedure, confirms identity before the operative or invasive procedure, verifies operative procedure, surgical site, and laterality Entry 1 Procedure(s) COLONOSCOPY(.) Patient Identity Birthday, ID Band Verified (select at Check, Patient least 2): Participation Consents / H and P Anesthesia Consent, Operative Site N/A Verified HandP, Surgery/Procedure Marking Verified Consent Surgical Site Yes Laterality Verified n/a Verified Procedure Verified Yes Correct Patient Yes Position Verified Availability Equipment, Medication Prep Dry n/a Verified (If Applicable) PreOp Antibiotic No Time Out Zander Bliss DO, Gonzales A, Given Participants MARLENE FERNANDEZ, Aretha Root CANE PUSHER/SAZara Crosby RN, Amy J Time Out Complete 06/29/18 07:45:00 Outcomes Met? Yes Last Modified By: Melinda Martinez RN 06/29/18 07:48:59 Post-Care Text: The patient is free from signs and symptoms of injury caused by extraneous objects Allergy Information FT Pre-Care Text: Verifies allergies Entry 1 Allergies Reviewed? Yes Allergies Reviewed Self/Patient With Outcomes Met? Yes Last Modified By: Abe Durán RN 06/29/18 07:11:10 Post-Care Text: The patient received appropriate medication(s) safely administered during the perioperative period Surgical Procedures FT Entry 1 Procedure Description Procedure COLONOSCOPY Modifiers . Surgeon Description COLONOSCOPY Primary Procedure Yes Primary Surgeon Lam ROSARIO MD Start 06/29/18 07:49:00 Stop 06/29/18 08:00:00 Anesthesia Type General Surgical Service General Wound Class 2 - Clean-Contaminated Last Modified By: Melinda Martinez RN 06/29/18 08:03:45 General Case Data FT Pre-Care Text: Classifies surgical wound, implements aseptic technique, initiates traffic control Entry 1 Case Information OR ENDO 2 FT Case Level Level 2 Wound Class 2 - Clean-Contaminated Specialty General ASA Class 2 Preop Diagnosis GENERALIZED ABDOMINAL Postop Same As Preop No PAIN Postop Diagnosis SIGMOID DIVERTICULOSIS Outcomes Met? Yes Last Modified By: Melinda Martinez RN 06/29/18 08:03:46 Post-Care Text: The patient is free from signs and symptoms of infection Skin Assessment (Pre Procedure) FT Pre-Care Text: Implements protective measures to prevent skin/ tissue injury due to thermal or mechanical sources Evaluates for signs and symptoms of physical injury to skin and tissue Entry 1 Skin Integrity Intact, [place], Warm, and Skin Abnormality No Dry Outcomes Met? Yes Last Modified By: Abe Durán RN 06/29/18 07:31:02 Post-Care Text: The patient is free from signs and symptoms of injury caused by extraneous objects Patient Positioning FT Pre-Care Text: Identifies physical alterations that require additional precautions for procedure-specific positioning, verifies presence of prosthetics or corrective devices, positions the patient, evaluates the patient for signs and symptoms of injury as a result of positioning Entry 1 Procedure COLONOSCOPY(.) Body Position Lateral, right side up Feet Uncrossed? Yes Left Arm Position Resting at Side Right Arm Position Resting at Side Left Leg Position Extended Right Leg Position Extended Positioning Device Pillow Under Head Large Press Points Checked Yes By Gonzales Fermin Jr, DO, Crosby RN, Amy J Outcomes Met? Yes Last Modified By: Melinda Martinez RN 06/29/18 07:47:47 Post-Care Text: The patient is free from signs and symptoms of injury related to positioning Patient Care Devices FT Pre-Care Text: Implements protective measures to prevent skin/ tissue injury due to thermal or mechanical sources Entry 1 Entry 2 Equipment Type ENDOSCOPY VIDEO MONITOR CHARGE SURGERY SYSTEM[F] [F] Equipment Number Equipment Setting Outcomes Met? Yes Yes Last Modified By: Leeanna PITTS, Abe Durán RN, Abe Daly 06/29/18 07:12:37 06/29/18 07:12:37 Post-Care Text: The patient is free from signs and symptoms of injury caused by extraneous objects Transport To OR FT Pre-Care Text: Transports according to individual needs. Evaluates for signs and symptoms of skin and tissue injury as a result of transfer or transport Entry 1 Via Cart By Melinda Martinez RN Safety Precautions Side Rails Up Outcomes Met? Yes Last Modified By: Melinda Martinez RN 06/29/18 07:47:52 Post-Care Text: The patient is free from signs and symptoms of injury related to transfer/transport Departure From OR FT Pre-Care Text: Transports according to individual needs. Evaluates for signs and symptoms of skin and tissue injury as a result of transfer or transport. Entry 1 Via Cart Safety Precautions Safety Strap, Side Rails Up PostOp Destination PACU Transported By Melinda Martinez RN Patient Status Stable Skin. Condition Intact, [place], Warm, and Dry Airway Maintenance Oxygen in Use? No Outcomes Met? Yes Last Modified By: Melinda Martinez RN 06/29/18 07:48:21 Post-Care Text: The patient is free from signs and symptoms of injury related to transfer/transport General Comments: REPORT TO PACU NURSE. HONG PEGUEROprecision jig grinder Administration FT Pre-Care Text: Verifies allergies, administers prescribed medications and solutions, administers prescribed antibiotic therapy and immunizing agents as ordered, evaluates response to medications Administers prescribed medications and solutions Entry 1 Expiration Date Yes Outcomes Met? Yes Verified Last Modified By: Leeanna PITTS, Abe Daly 06/29/18 07:13:12 Post-Care Text: The patient received appropriate medication(s) safely administered during the perioperative period For [facility] please see scanned medication reconcilliation form for medications used at the field during the procedure. [facility] Inpatient Patient Summaryon 06-29-2018 Inpatient Patient Summary [facility] Clinical Discharge Instructions PERSON INFORMATION Name: DESIRE HIRSCH PHYSICIANS Admitting Physician: Lam ROSARIO MD Attending Physician: Lam ROSARIO MD PCP: JUVE COMBS MD Discharge Diagnosis: DIVERTICULOSIS OF COLON (WITHOUT MENTION OF HEMORRHAGE) Comment: PATIENT EDUCATION INFORMATION Instructions: Colonoscopy, Care After Surgery Marlene (FTESCHMIDT) Medication Leaflets: Follow up: With: Address: When: Lam ROSARIO [address] [place] [address], [address] [place] [address] [facility] (1) Comments: Call for any problems. MEDICATION LIST Comment: [facility] Main OR PACU I Recordon 06-10 Main OR PACU I Record PACU Phase I Document Type FT Summary Primary Physician: Lam ROSARIO MD Finalized Date/Time: 06/29/18 08:37:41 Pt. Name: ISAAK HIRSCHESME Pena /Sex: 1945 Female Med Rec #: [id number] Physician: Lam ROSARIO MD Financial #: [id number] Pt. Type: O Room/Bed: / Admit/Disch: 06/29/18 06:54:28 - Institution: Case Times PACU I FT Pre-Care Text: Identifies barriers to communication and implements measures to provide psychological support Develops individualized plan of care, and ensures continuity of care Maintains patient's dignity and privacy, and maintains patient confidentiality Identifies and reports philosophical, cultural, and spiritual beliefs and values Identifies individual values and wishes concerning care Implements aseptic technique, and administers prescribed antibiotic therapy and immunizing agents as ordered Evaluates postoperative tissue perfusion Implements thermoregulation measures, and monitors body temperature Evaluates postoperative respiratory status Evaluates postoperative cardiac status Evaluates postoperative neurological status Assesses pain control, collaborated in initiating patient-controlled analgesia and implements alternative methods of pain control Verifies allergies, administers prescribed medications and solutions, evaluates response to medications Entry 1 In PACU I 06/29/18 08:03:00 Discharge from PACU 06/29/18 08:33:00 I Outcomes Met? Yes Last Modified By: Priscilla Gomez RN 06/29/18 08:36:44 Post-Care Text: The patient demonstrates knowledge of the expected response to the operative or invasive procedure The patient's care is consistent with the individualized perioperative plan of care The patient's right to privacy is maintained The patient's value system, lifestyle, ethnicity, and culture are considered, respected, and incorporated into the perioperative plan of care The patient participates in decisions affecting his or her perioperative plan of care The patient is free from signs and symptoms of infection The patient has wound/tissue perfusion consistent with or improved from baseline levels established preoperatively The patient is at or returning to normothermia at the conclusion of the immediate postoperative period The patient's respiratory function is consistent with or improved from baseline levels established preoperatively The patient's cardiovascular status is consistent with or improved from baseline levels established preoperatively The patient's cardiovascular status is consistent with or improved from baseline levels established preoperatively The patient demonstrates and/or reports adequate pain control throughout the perioperative period The patient received appropriate medication(s), safely administered during the perioperative period Acuity Level PACU I FT Entry 1 Start Time 06/29/18 08:03:00 Stop Time 06/29/18 08:33:00 Acuity Level Acuity Level I Last Modified By: Priscilla Gomez RN 06/29/18 08:37:19 Finalized By: Priscilla Gomez RN Document Signatures Signed By: Priscilla Gomez RN 06/29/18 08:37 [facility] Main OR Preoperative Recordo n 06-29-2018 Main OR Preoperative Record Holding Area Document Type FT Summary Primary Physician: Lam ROSARIO MD Finalized Date/Time: 06/29/18 07:04:10 Pt. Name: DESIRE HIRSCH/Sex: 1945 Female Med Rec #: [id number] Physician: Lam ROSARIO MD Financial #: [id number] Pt. Type: O Room/Bed: / Admit/Disch: 06/29/18 06:54:28 - Institution: Case Times Holding FT Pre-Care Text: Verifies consent for planned procedure, identifies individual values and wishes concerning care, includes family members in perioperative teaching Secures patient's records' belongings, and valuables, maintains patient's dignity and privacy, and maintains patient confidentiality Entry 1 In Holding 06/29/18 07:00:00 Outcomes Met? Yes Last Modified By: Mara Bain RN 06/29/18 07:02:51 Post-Care Text: The patient participates in decisions affecting his or her perioperative plan of care The patient's right to privacy is maintained Surgery Checklist FT Entry 1 Patient Birthday, ID Band Procedure History and Physical, Identification: Check, Patient Verification: Surgical Consent, With Participation Patient NPO after Midnight: Yes Results Reviewed None Comments: Personal Items: Dentures, Glasses Personal Items hearing aids Comment: Limitations: none Complaints of Pain: Yes Pain Comment: abdominal pain Operative Site n/a Marking: Availability Equipment Verified: Patient states Yes Comment - Adult spouse Jeremy postop adult Supervision supervision available Case Cancelled in No Holding Area see comments below for reason Last Modified By: Mara Bain RN 06/29/18 07:04:05 Finalized By: Mara Bain RN Document Signatures Signed By: Mara Bain RN 06/29/18 07:04 [facility] Operative Reporton 8 Operative Report Date of Surgery: 06/29/2018 SURGEON: Lam Rosario MD, [facility] PREOPERATIVE DIAGNOSIS: Abdominal gas pain POSTOPERATIVE DIAGNOSIS: Sigmoid diverticulosis OPERATION: Colonoscopy ANESTHESIA: General ANESTHESIOLOGIST: Gonzales Fermin Jr., D.O. INDICATIONS: This is a 73 year old white female who presents with complaints of non-specific abdominal gas pains. Last colonoscopy was approximately four years ago. PROCEDURE: The patient was brought to the Endoscopy Suite and, under anesthesia, placed in the left lateral decubitus position. After a normal rectal examination the colonoscope was advanced to the cecum. Upon exiting there were no mucosal abnormalities or defects noted in the cecum, ascending colon, transverse colon, or descending colon. There were scattered diverticula noted throughout the sigmoid colon. No other mucosal abnormalities were noted. The patient tolerated the procedure well and was transferred to the Recovery Room in stable condition. She was advised she should have a follow-up colonoscopy in ten years unless she has any significant change in her bowel habits. Lam Rosario MD, FACS aek Dictated: 06/29/2018 #[id number] Typed: 06/29/2018 #[id number] cc: Juve Combs M.D. Lam Rosario MD, FACS [facility] Comment on above: Result Comment: Elec tronically Signed By: MARLENE FERNANDEZ, Lam Persaud\.br\Date and Time Signed: 06/29/18 13:18 EST Patient Education - Texton 1 08-29-2017 Patient Education - Text Colonoscopy Care After Surgery Please read the instructions outlined below and refer to this sheet in the next few weeks. These discharge instructions provide you with general information on caring for yourself after you leave the hospital. Your doctor may also give you specific instructions. While your treatment has been planned according to the most current medical practices available, unavoidable complications occasionally occur. If you have any problems or questions after discharge, please call your doctor. ACTIVITY You may resume your regular activity, but move at a slower pace for the next 24 hours. Take frequent rest periods for the next 24 hours. Walking will help get rid of the air and reduce the bloated feeling in your abdomen (belly). No driving for 24 hours (because of the anesthesia (medicine) used during the test). You may shower. Do not sign any important legal documents or operate any machinery for 24 hours (because of the anesthesia used during the test). NUTRITION Drink plenty of fluids. You may resume your normal diet as instructed by your doctor. Begin with a light meal and progress to your normal diet. Heavy or fried foods are harder to digest and may make you feel nauseated (sick to your stomach). Avoid alcoholic beverages for 24 hours or as instructed. MEDICATIONS You may resume your normal medications unless your doctor tells you otherwise. WHAT YOU CAN EXPECT TODAY Some feelings of bloating in the abdomen. Passage of more gas than usual. Spotting of blood in your stool or on the toilet paper. IF YOU HAD POLYPS REMOVED DURING THE COLONOSCOPY: No aspirin products for 7 days or as instructed. No alcohol for 7 days or as instructed. Eat a soft diet for the next 24 hours. FOLLOW-UP Your doctor will discuss the results of your test with you. SEEK IMMEDIATE MEDICAL ATTENTION IF: There is more than a spotting of blood in your stool. There is abdominal distention (your abdomen is swollen). There is vomiting. You have a temperature over 101.5 F. There is abdominal pain or discomfort that is severe or gets worse throughout the day. [facility] Progress Note-Physicianon Progress Note-Physician Patient: DESIRE HIRSCH Age: 73 years Sex: Female : 1945 Associated Diagnoses: None Author: Lam ROSARIO MD Postoperative Information Date/ Time: 06/29/18 08:01:00 Preoperative Diagnosis: SCREENING FOR MALIGNANT NEOPLASMS OF COLON (FSF62-GW Z12.11, Working, Medical), Abdominal gas pain (VMD42-IT R14.1, Pre-Op Diagnosis, Medical). Procedure: Colonoscopy. Postoperative Diagnosis: DIVERTICULOSIS OF COLON (WITHOUT MENTION OF HEMORRHAGE) (CDJ69-YT K57.30, Working, Medical). Performed by: Lam Rosario MD. Estimated Blood Loss: 0 ml. Complications: None. [facility] Comment on above: Result Comment: Elec tronically Signed By: Lam ROSARIO MD\.br\Date and Time Signed: 06/29/18 08:02 EST Progress Note-Physician Patient: DESIRE HIRSCH Age: 73 years Sex: Female : 1945 Associated Diagnoses: None Author: Lam ROSARIO MD Basic Information No change in H&P [facility] Comment on above: Result Comment: Elec tronically Signed By: Lam ROSARIO MD\.br\Date and Time Signed: 06/29/18 07:43 EST CNOVon 08-18-2017 CNOV Office Visit (NSEVMN) Joe HIRSCH ([id number]) 1945 FDate Time Provider Department08/18/17 11:00 AM MAN LEO During your visit today, we recorded the following information about you: Pulse Respiration Blood pressure Weight 90/minute 18/minute 139/62 65.8 kg Height 1.6 Belinda Márquez CNP 08/18/2017 11:12 AM Signed1. You will need a follow up appointment and MRA Brain to monitor your aneurysmin 2019billie Márquez CNP 08/18/2017 11:57 AM SignedBarreramaegan Pena Brooke#: [id number] of Service: 08/18/2017Primary Care Provider: Kael He II Neurologist: n/aReferring Neurosurgeon: Heena Ornelas MDOUTPATIENT CONSULTATIONSsam Hirsch is a 72 year old right handed female seen at the request offormer patient of Dr. Ornelas for Endovascular/Neurosurgic al consultationregarding left cavernous sinus aneurysm.Chief Complaint: unruptured cerebral aneurysmHistory of Present Illness:This is a 72 year old female with medical history of HLD, anxiety,hypothyroidism, HTN who was found to have an incidental small left cavernousaneurysm during a work up for vertigo. She is asymptomatic. She is here totransfer her care as she was previously under the care of Dr. Ornelas. She deniesany new neurological symptoms or seizures.Vascular risk factors(+) Hypertension(+) DyslipidemiaPast Medical History:If applicable, date of last stroke,n/a(enter as much detail as possible, ifexact date unknown, enter estimate)PAST MEDICAL HISTORYDiagnosis Date- Aneurysm (HCC) 2013 brain, [facility] following her on this- High cholesterol- HTN (hypertension)- Neck pain- Thyroid disease- Vertigo 2013 hospitalized in [facility] present: NOSmoking history: YES, quit 25 years agoDiabetes: NOCongestive heart failure: NOCoronary artery disease: NOChronic Renal Failure: NOPolycystic Kidney Disease: NOFibromuscular Dysplasia: NOCollagen Tissue Disease: NoStroke or TIA: NOPast SAH: NO If so, date: n/aPast Surgical History:PAST SURGICAL HISTORYProcedure Laterality Date- COLONOSCOPY 2013 Dr Gallgeo- EGD 2013 Dr Gallego- LEG SURGERY HX 1969' bilat varicose vein surg- THYROID SURGERY HX 2008 removed right side (nodule removed)- TUBAL LIGATION HXMajor Trauma or Injuries: NoneAllergies:Glycerin; Seasonal Allergies; Sulfa (Sulfonamide Antibiotics)Medications: Current Outpatient Prescriptions:levothyrox ine (SYNTHROID) 50 mcg tablet TAKE 1 TABLET BY MOUTH DAILY IN THEMORNING ON AN EMPTY STOMACHFLAXSEED OIL (OMEGA 3 ORAL) Take 1 tablet by mouth once daily.lisinopril (ZESTRIL, PRINIVIL) 10 mg tablet Take 10 mg by mouth once daily.L GASSERI/B BIFIDUM/B LONGUM ([employer] ORAL) Take by mouth.Vit A,C and P-Zpaw-M3-Lut-Mn-Glu (EYE-CHUCK EXTRA + LUTEIN) 6161-187-001-2unit-mg-un it-mg tab Take by mouth. 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.Social History Main Topics Smoking status: Former Smoker Packs/day: 0.00 Years: 32.00 Types: Cigarettes Quit date: 08/09/1992 Smokeless status: Never Used Alcohol use: Yes Comment: social Drug use: NoIllicit Drug Use: NoExercise: no regular exercise programOccupation: RetiredMarital Status: MarriedFamily History:Subarachnoid hemorrhage: NoneAneurysms: NoneStroke: NoneVascular malformations: NoneOther neurologic diseases: NoneREVIEW OF SYSTEMS:Constitutional: No recent fever or weight loss.Skin: Denies itching, rashes, skin cancers or conditions.Eyes: Denies complaints of blurred vision and diplopia. Does not use glassesor contact lenses. No cataracts or glaucoma.ENMT: Denies dysphagia, tinnitus, vertigo, lightheadedness, dizziness andhearing loss. Does not use dentures.Endocrine: Denies history of Type l or Type ll diabetes mellitus and thyroiddisease.CV: Denies history of chest pain, prior NE's, palpitations, heart failure,murmurs, circulatory problems, leg swelling, hyperlipidemia and hypertension.Respiratory : Denies history of paroxysmal nocturnal dyspnea, recent cough,orthopnea, shortness of breath, COPD, emphysema, asthma, pneumonia, andtuberculosis.Gastroin testinal: Denies history of nausea, vomiting, diarrhea, constipation,ulcers, heartburn, and abdominal pain. No known liver disease.Genitourinary: Denies hematuria, dysuria, incontinence, kidney disease, andsexual dysfunction.LMP: No LMP recorded. Patient is postmenopausal.Musculosk eletal: Denies complaint of unstable gait, arm / leg weakness,arthritis, and gout.Neurological:Denies history of syncope, memory changes, or disorientationDenies complaint of headacheDenies complaint of diplopia or decreased visual acuityDenies complaint of arm / leg numbnessDenies problem with limb coordinationDenies history of seizures and strokesDenies loss of consciousness or other neurologic diseasePsychiatric: Denies history of hallucinations, depression, anxiety, andsubstance abuse.PHYSICAL EXAMINATIONBP 139/62 (BP Site: Left Arm, BP Position: Sitting, BP Cuff Size: RegularAdult) Pulse 90 Resp 18 Ht 160 cm (5' 3ANDquot;) Wt 65.8 kg (145 lb) BMI 25.69 kg/x8Yluthgsnmf: Well developed, well nourished, in no acute distress.Skin: [place], warm, dry, no lesions or rashes.Eyes: Clear conjunctiva, non-ictericMusculoskelet al: Gait is normal, negative Romberg, muscle strength 5 / 5 inboth upper and lower limbs, no drift and muscle tone normal in all four limbswithout atrophy.Neurological:Hig her Integrative Functions: Oriented to person, place and time. Memory: Goodrecent and remoteAttention Span ANDamp; Concentration: GoodLanguage: Accurate naming of objects. Good comprehension.Fund of Knowledge: Bfhx5sg Cranial Nerve: Full visual qdbdpb8gd, 4th ANDamp; 6th cranial nerves: Pupils equal, round, react to light, fullextraocular movements without nystagmus.5th cranial nerve: No decrease in facial yxgibqvcw9uq cranial nerve: Facial muscles symmetric and hewles0rf cranial nerve: Hears finger rub well gfsdrfihhgr8cq cranial nerve: Good opt57fo cranial nerve: Spontaneous palate movement full and amtzvjefs84sl cranial nerve: Full strength in shoulder pdmjr96wh cranial nerve: Tongue protrusion full and midlineSensation: No decrease in sensation in upper or lower limbs to touchCoordination: Rapid alternating movements fast and smooth in all limbs. Finger- nose coordination intact.Please see Health Status Measures for NIH, Melanie and RankinMEDICAL DECISION MAKING:DATA REVIEW:Review of old medical records: small left cavernous sinus aneurysmReview of reports of lab, radiology, and / or other diagnostic test(s): stablesmall left cavernous aneurysmPersonal review of image: Stable small left cavernous aneurysmDIAGNOSIS: Aneurysm- Asymptomatic IncidentalTREATMENT OPTIONS ANDamp; RISKS:I have discussed the management options and there respective risks and benefitswith the patient.Stable size of small left cavernous aneurysm, patient currently asymptomatic,given location, small size and lack of risk factors would recommend continueobservation. MRA in 3 years.RECOMMENDATIONS:Di agnostic tests to be ordered: MRA in 3 yearsMedications: continue current medicationsInstructions: Continue present activity.Addie Márquez CNPReferring Provider: SELF [[id number]]Allergies As of Date: 08/18/2017 Noted Allergy ReactionGLYCERIN 11/21/2012 7 - Swelling 9 - ItchingSEASONAL ALLERGIES 11/21/2012 14 - Other: See Comments Comments: Sneezing,runny nose,and itchy eyesSULFA (SULFONAMIDE ANTIBIOTICS) 12/10/2014 9 - ItchingDate Reviewed: 08/18/2017Reviewed by: Addie Márquez - Fully AssessedReason for Visit: New Patient [172]Primary Visit Diagnosis:Aneurysm (HCC) [I72.9]Prescriptions as of 08/18/2017 Sig: LEVOTHYROXINE 50 MCG TABLET TAKE 1 TABLET BY MOUTH DAILY * OMEGA 3 ORAL Take 1 tablet by mouth once d* LISINOPRIL 10 MG TABLET Take 10 mg by mouth once kiki* [employer] ORAL Take by mouth. VIT A 1000 UNIT-C 300 MG-E 10* Take by mouth. Takes eye pr* VITAMIN B COMPLEX NO.12-NIACI* Take 500 mg by mouth. LORAZEPAM 0.5 MG TABLET Take 0.5 mg by mouth daily at* CALTRATE 600 ORAL Take by mouth once daily. ZYRTEC ORAL Take by mouth as needed. CENTRUM SILVER ORAL Take by mouth once daily.Medication notes this encounter LEVOTHYROXINE 50 MCG TABLET >> Elma Kemp Ma 08/18/2017 10:46 AM >> ELMA KEMP MA WedAug 18, 2017 10:46 AM Received from: External Pharmacy VITAMIN B COMPLEX NO.12-NIACIN ORAL >> Elma Kemp Ma 08/18/2017 10:47 AM >> ELMA KEMP MA WedAug 18, 2017 10:47 AM No longer using.Problem List As Of Date 08/18/2017 Noted Resolved Aneurysm [I72.9] INVALID FOR* More... HTN (hypertension) [I10] High cholesterol [E78.00] Neck pain [M54.2] Thyroid disease [E07.9] Vertigo [R42] More... Cervical spondylosis without myelopathy [M47.81*INVALID FOR* Other instructions from your clinician: 1. You will need a follow up appointment and MRA Brain to monitor your aneurysm in 2019Encounter Number: [id number] Status:Closed by ADDIE MÁRQUEZ CNP on 08/18/17 [facility] PROGRESSon 08-18-2017 PROGRESS HNO ID: [id number]: Addie Houston) Asael: (none)Author Type: Nurse PractitionerType: Progress NotesFiled: 08/18/2017 11:57 AMNote Text:Desire RiceLennox#: [id number] of Service: 08/18/2017Primary Care Provider: Kael He II Neurologist: n/aReferring Neurosurgeon: Heena Ornelas MDOUTPATIENT CONSULTATIONSsam Hirsch is a 72 year old right handed female seen at the requestof former patient of Dr. Ornelas for Endovascular/Neurosurgic al consultationregarding left cavernous sinus aneurysm.Chief Complaint: unruptured cerebral aneurysmHistory of Present Illness:This is a 72 year old female with medical history of HLD, anxiety,hypothyroidism, HTN who was found to have an incidental small leftcavernous aneurysm during a work up for vertigo. She is asymptomatic. Sheis here to transfer her care as she was previously under the care of . She denies any new neurological symptoms or seizures.Vascular risk factors(+) Hypertension(+) DyslipidemiaPast Medical History:If applicable, date of last stroke,n/a(enter as much detail as possible,if exact date unknown, enter estimate)PAST MEDICAL HISTORYDiagnosis Date- Aneurysm (HCC) 2013 brain, [facility] following her on this- High cholesterol- HTN (hypertension)- Neck pain- Thyroid disease- Vertigo 2013 hospitalized in [facility] present: NOSmoking history: YES, quit 25 years agoDiabetes: NOCongestive heart failure: NOCoronary artery disease: NOChronic Renal Failure: NOPolycystic Kidney Disease: NOFibromuscular Dysplasia: NOCollagen Tissue Disease: NoStroke or TIA: NOPast SAH: NO If so, date: n/aPast Surgical History:PAST SURGICAL HISTORYProcedure Laterality Date- COLONOSCOPY 2013 Dr Gallego- EGD 2013 Dr Gallego- LEG SURGERY HX 1969' bilat varicose vein surg- THYROID SURGERY HX 2008 removed right side (nodule removed)- TUBAL LIGATION HXMajor Trauma or Injuries: NoneAllergies:Glycerin; Seasonal Allergies; Sulfa (Sulfonamide Antibiotics)Medications: Current Outpatient Prescriptions:levothyrox ine (SYNTHROID) 50 mcg tablet TAKE 1 TABLET BY MOUTH DAILY INTHE MORNING ON AN EMPTY STOMACHFLAXSEED OIL (OMEGA 3 ORAL) Take 1 tablet by mouth once daily.lisinopril (ZESTRIL, PRINIVIL) 10 mg tablet Take 10 mg by mouth oncedaily.L GASSERI/B BIFIDUM/B LONGUM ([employer] ORAL) Take by mouth.Vit A,C and G-Iyox-J0-Lut-Mn-Glu (EYE-CHUCK EXTRA + LUTEIN) 3733-018-715-2unit-mg-un it-mg tab Take by mouth. 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.Social History Main Topics Smoking status: Former Smoker Packs/day: 0.00 Years: 32.00 Types: Cigarettes Quit date: 08/09/1992 Smokeless status: Never Used Alcohol use: Yes Comment: social Drug use: NoIllicit Drug Use: NoExercise: no regular exercise programOccupation: RetiredMarital Status: MarriedFamily History:Subarachnoid hemorrhage: NoneAneurysms: NoneStroke: NoneVascular malformations: NoneOther neurologic diseases: NoneREVIEW OF SYSTEMS:Constitutional: No recent fever or weight loss.Skin: Denies itching, rashes, skin cancers or conditions.Eyes: Denies complaints of blurred vision and diplopia. Does not useglasses or contact lenses. No cataracts or glaucoma.ENMT: Denies dysphagia, tinnitus, vertigo, lightheadedness, dizziness andhearing loss. Does not use dentures.Endocrine: Denies history of Type l or Type ll diabetes mellitus andthyroid disease.CV: Denies history of chest pain, prior NE's, palpitations, heartfailure, murmurs, circulatory problems, leg swelling, hyperlipidemia andhypertension.Respirat ory: Denies history of paroxysmal nocturnal dyspnea, recentcough, orthopnea, shortness of breath, COPD, emphysema, asthma, pneumonia,and tuberculosis.Gastrointes tinal: Denies history of nausea, vomiting, diarrhea,constipation, ulcers, heartburn, and abdominal pain. No known liverdisease.Genitourina ry: Denies hematuria, dysuria, incontinence, kidney disease,and sexual dysfunction.LMP: No LMP recorded. Patient is postmenopausal.Musculosk eletal: Denies complaint of unstable gait, arm / leg weakness,arthritis, and gout.Neurological:Denies history of syncope, memory changes, or disorientationDenies complaint of headacheDenies complaint of diplopia or decreased visual acuityDenies complaint of arm / leg numbnessDenies problem with limb coordinationDenies history of seizures and strokesDenies loss of consciousness or other neurologic diseasePsychiatric: Denies history of hallucinations, depression, anxiety, andsubstance abuse.PHYSICAL EXAMINATIONBP 139/62 (BP Site: Left Arm, BP Position: Sitting, BP Cuff Size: RegularAdult) Pulse 90 Resp 18 Ht 160 cm (5' 3 ) Wt 65.8 kg (145 lb) BMI 25.69 kg/a1Ilsvgsdwmm: Well developed, well nourished, in no acute distress.Skin: [place], warm, dry, no lesions or rashes.Eyes: Clear conjunctiva, non-ictericMusculoskelet al: Gait is normal, negative Romberg, muscle strength 5 / 5in both upper and lower limbs, no drift and muscle tone normal in all fourlimbs without atrophy.Neurological:Hig her Integrative Functions: Oriented to person, place and time. Memory:Good recent and remoteAttention Span AND Concentration: GoodLanguage: Accurate naming of objects. Good comprehension.Fund of Knowledge: Bslc8qy Cranial Nerve: Full visual uhdmia0xw, 4th AND 6th cranial nerves: Pupils equal, round, react to light, fullextraocular movements without nystagmus.5th cranial nerve: No decrease in facial ljiypcpao3vh cranial nerve: Facial muscles symmetric and qucuom6ez cranial nerve: Hears finger rub well nmooxqowkxt5fv cranial nerve: Good duq31wi cranial nerve: Spontaneous palate movement full and lhchmsnjj74ai cranial nerve: Full strength in shoulder iqkem02xa cranial nerve: Tongue protrusion full and midlineSensation: No decrease in sensation in upper or lower limbs to touchCoordination: Rapid alternating movements fast and smooth in all limbs.Finger - nose coordination intact.Please see NI Health Status Measures for NIH, Melanie and RankinMEDICAL DECISION MAKING:DATA REVIEW:Review of old medical records: small left cavernous sinus aneurysmReview of reports of lab, radiology, and / or other diagnostic test(s):stable small left cavernous aneurysmPersonal review of image: Stable small left cavernous aneurysmDIAGNOSIS: Aneurysm- Asymptomatic IncidentalTREATMENT OPTIONS AND RISKS:I have discussed the management options and there respective risks andbenefits with the patient.Stable size of small left cavernous aneurysm, patient currentlyasymptomatic, given location, small size and lack of risk factors wouldrecommend continue observation. MRA in 3 years.RECOMMENDATIONS:Di agnostic tests to be ordered: MRA in 3 yearsMedications: continue current medicationsInstructions: Continue present activity.Addie Márquez CNP [facility] CNOVon 07-21-2017 CNOV Office Visit (NSEVMN) Joe HIRSCH ([id number]) 1945 [facility] Time Provider Gjjxfboipk58/13/17 [facility] During your visit today, we recorded the following information about you:Allergies As of Date: 07/21/2017 Noted Allergy ReactionGLYCERIN 11/21/2012 7 - Swelling 9 - ItchingSEASONAL ALLERGIES 11/21/2012 14 - Other: See Comments Comments: Sneezing,runny nose,and itchy eyesSULFA (SULFONAMIDE ANTIBIOTICS) 12/10/2014 9 - ItchingDate Reviewed: 12/10/2014Reviewed by: Osmani Chen - Fully AssessedReason for Visit: No Show [1558]Primary Visit Diagnosis:NO SHOWPrescriptions as of 07/21/2017 Sig: LISINOPRIL 10 MG TABLET Take 10 mg by mouth once kiki* [employer] ORAL Take by mouth. VIT A 1000 UNIT-C 300 MG-E 10* Take by mouth. Takes eye pr* VITAMIN B COMPLEX NO.12-NIACI* Take 500 mg by mouth. LORAZEPAM 0.5 MG TABLET Take 0.5 mg by mouth daily at* CALTRATE 600 ORAL Take by mouth once daily. ZYRTEC ORAL Take by mouth as needed. CENTRUM SILVER ORAL Take by mouth once daily.Problem List As Of Date 07/21/2017 Noted Resolved Aneurysm [I72.9] INVALID FOR* More... HTN (hypertension) [I10] High cholesterol [E78.00] Neck pain [M54.2] Thyroid disease [E07.9] Vertigo [R42] More... Cervical spondylosis without myelopathy [M47.81*INVALID FOR* Status:Closed by MARQUISE MELVIN on 07/21/17 [facility] OT-MRA HEAD W CON IMPORTon 1 08-23-2016 OT-MRA HEAD W CON IMPORT Images were obtained outside of [facility] [id number] [facility] Vital Signs Date Time Vital Sign Value Performing Clinician Faci lity 01-03-2025 09:50-0400 Body height 154.9 cm Margaux Hemmer PA Work Phone: [facility] 01-03-2025 09:50-0400 Body mass index (BMI) [Ratio] 25.17 kg/m2 Margaux Hemmer PA Work Phone: [facility] 01-03-2025 09:50-0400 Body weight 60.42 kg Margaux Hemmer PA Work Phone: [facility] 01-03-2025 09:50-0400 Diastolic blood pressure 82 mm[Hg] Margaux Hemmer PA Work Phone: [facility] 01-03-2025 09:50-0400 Heart rate 90 /min Margaux Hemmer PA Work Phone: [facility] 01-03-2025 09:50-0400 Respiratory rate 16 /min Margaux Hemmer PA Work Phone: [facility] 01-03-2025 09:50-0400 SaO2% (BldA) [Mass fraction] 99 % Margaux Hemmer PA Work Phone: [facility] 01-03-2025 09:50-0400 Systolic blood pressure 134 mm[Hg] Margaux Hemmer PA Work Phone: [facility] 11-22-2024 14:02-0400 Diastolic blood pressure 66 mm[Hg] Huy Marcano Jr, MD [facility] 11-22-2024 14:02-0400 Heart rate 79 /min Huy Marcano Jr, MD [facility] 11-22-2024 14:02-0400 Systolic blood pressure 151 mm[Hg] Huy Marcano Jr, MD [facility] 10-03-2024 13:26-0500 Diastolic blood pressure 76 mm[Hg] Fermin Lees MD [facility] 10-03-2024 13:26-0500 Systolic blood pressure 127 mm[Hg] Fermin Lees MD [facility] 08-31-2024 09:30-0500 Body height 154.9 cm Brayden Hayes DO Work Phone: [facility] 08-31-2024 09:30-0500 Body mass index (BMI) [Ratio] 25.32 kg/m2 Brayden Hayes DO Work Phone: [facility] 08-31-2024 09:30-0500 Body temperature 97.5 [degF] Brayden Hayes DO Work Phone: [facility] 08-31-2024 09:30-0500 Body weight 60.78 kg Brayden Hayes DO Work Phone: [facility] 07-10-2024 09:04-0500 Body height 154.9 cm Margaux Hemmer PA Work Phone: [facility] 07-10-2024 09:04-0500 Body mass index (BMI) [Ratio] 25.43 kg/m2 Margaux Hemmer PA Work Phone: [facility] 07-10-2024 09:04-0500 Body weight 61.05 kg Margaux Hemmer PA Work Phone: [facility] 07-10-2024 09:04-0500 Diastolic blood pressure 78 mm[Hg] Margaux Hemmer PA Work Phone: [facility] 07-10-2024 09:04-0500 Heart rate 69 /min Margaux Hemmer PA Work Phone: [facility] 07-10-2024 09:04-0500 Respiratory rate 16 /min Margaux Hemmer PA Work Phone: [facility] 07-10-2024 09:04-0500 SaO2% (BldA) [Mass fraction] 99 % Margaux Hemmer PA Work Phone: [facility] 07-10-2024 09:04-0500 Systolic blood pressure 132 mm[Hg] Margaux Hemmer PA Work Phone: [facility] 05-31-2024 11:10-0400 Body height 154.9 cm Margaux Hemmer PA Work Phone: [facility] 05-31-2024 11:10-0400 Body mass index (BMI) [Ratio] 25.62 kg/m2 Margaux Hemmer PA Work Phone: [facility] 05-31-2024 11:10-0400 Body weight 61.51 kg Margaux Hemmer PA Work Phone: [facility] 05-31-2024 11:10-0400 Diastolic blood pressure 92 mm[Hg] Margaux Hemmer PA Work Phone: [facility] 05-31-2024 11:10-0400 Heart rate 78 /min Margaux Hemmer PA Work Phone: [facility] 05-31-2024 11:10-0400 Respiratory rate 16 /min Margaux Hemmer PA Work Phone: [facility] 05-31-2024 11:10-0400 SaO2% (BldA) [Mass fraction] 99 % Margaux Hemmer PA Work Phone: [facility] 05-31-2024 11:10-0400 Systolic blood pressure 148 mm[Hg] Margaux Hemmer PA Work Phone: [facility] Healthcare Encounters Encounter Date Encounter Type Care Provider Facility Start: 01-03-2025 End: 01-03-2025 Bamboo flowsheet Margaux Capps Hemmer PA Work Phone: [facility] Start: 01-03-2025 End: 01-03-2025 Bamboo flowsheet Margaux Capps Hemmer PA Work Phone: [facility] Start: 01-03-2025 End: 01-03-2025 Office outpatient visit 25 minutes Margaux Capps Hemmer PA Work Phone: [facility] Comment on above: Sternocostal pain (P rimary Dx); 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; Benign essential hypertension (CMS/HCC); Anxiety; Chest pain, unspecified type; Other fatigue; Holosystolic murmur; Exudative age-related macular degeneration, bilateral, stage unspecified (CMS/HCC) Start: 01-03-2025 End: 01-03-2025 ambulatory MARGAUX BOYKIN Not Available Start: 12-26-2024 End: 12-26-2024 Doctor Corporate Work Phone: [facility] Start: 12-26-2024 [facility] Start: 11-22-2024 End: 11-22-2024 Huy Marcano Jr Work Phone: [facility] Start: 11-22-2024 ambulatory Huy Marcano Jr [facility] Start: 10-19-2024 End: 10-19-2024 Clinisync Result Encounter Margaux PUTNAM Work Phone: [facility] Unsolicited Start: 10-19-2024 End: 10-19-2024 Clinisync Result Encounter Margaux PUTNAM Work Phone: [facility] Unsolicited Start: 10-03-2024 End: 10-03-2024 Office outpatient visit 15 minutes Fermin Lees Work Phone: [facility] Start: 10-03-2024 ambulatory Fermin Al Shweiki [facility] Start: 08-31-2024 End: 08-31-2024 Patient encounter procedure Brayden Hayes DO Work Phone: [facility] Comment on above: Right shoulder pain, unspecified chronicity (Primary Dx) Start: 08-31-2024 End: 08-31-2024 ambulatory BRAYDEN HAYES Not Available Start: 08-31-2024 End: 08-31-2024 ambulatory BRAYDEN HAYES Not Available Start: 07-10-2024 End: 07-10-2024 Bamboo flowsheet Margaux PUTNAM Work Phone: [facility] Start: 07-10-2024 End: 07-10-2024 Bamboo flowsheet Margaux PUTNAM Work Phone: [facility] Start: 07-10-2024 End: 07-10-2024 Patient encounter procedure Margaux PUTNAM Work Phone: [facility] Comment on above: Medicare annual [facility] visit, subsequent (Primary Dx); ACP (advance care planning); Benign essential hypertension (CMS/HCC); Acquired hypothyroidism (CMS/HCC); Hypocholesterolemia (CMS/HCC); Primary insomnia; Other chronic pain; Serous detachment of retinal pigment epithelium, left eye; Cerebral aneurysm, nonruptured; Retinal neovascularization, unspecified, left eye; 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; Disorder of peristalsis of esophagus; Diverticulosis of sigmoid colon; Nonulcer dyspepsia; Calcaneal spur of right foot; Cervical spondylosis without myelopathy; Degeneration of intervertebral disc of lumbar region with discogenic back pain; Age-related osteoporosis without current pathological fracture (CMS/HCC); Other idiopathic scoliosis, thoracolumbar region; Plantar fascial fibromatosis; Spondylolisthesis, lumbar region; Thoracic spondylosis; Anxiety; Benign paroxysmal positional vertigo due to bilateral vestibular disorder; Bilateral exudative age-related macular degeneration, unspecified stage (CMS/HCC); Glaucoma suspect of both eyes; Postlaminectomy syndrome of lumbar region; Pseudophakia; Vitreous degeneration, bilateral Start: 07-10-2024 End: 07-10-2024 ambulatory MARGAUX BOYKIN Not Available Start: 05-31-2024 End: 05-31-2024 Bamboo flowsheet Margaux Boykin PA Work Phone: [facility] Start: 05-31-2024 End: 05-31-2024 Bamboo flowsheet Margaux PUTNAM Work Phone: [facility] Start: 05-31-2024 End: 05-31-2024 Office outpatient visit 15 minutes Margaux PUTNAM Work Phone: [facility] Comment on above: Benign essential hyp ertension (CMS/HCC) (Primary Dx); Allergic rhinitis due to fungal spores, unspecified seasonality Start: 05-31-2024 End: 05-31-2024 ambulatory MARGAUX BOYKIN Not Available Start: 05-24-2024 End: 05-24-2024 Refill Alena Dia CALCIMINER Work Phone: [facility] Comment on above: Anxiety Start: 05-16-2024 End: 05-16-2024 Office outpatient visit 25 minutes Fermin Lees Work Phone: [facility] Start: 05-16-2024 ambulatory Fermin Ramirez Shweiki [facility] Start: 03-13-2024 End: 03-13-2024 ambulatory JENNIFER SHAW Not Available Start: 12-16-2023 End: 12-16-2023December El Rashedy Work Phone: [facility] Start: 08-19-2023 End: 08-19-2023December El Rashedy Work Phone: [facility] Start: 04-01-2023 End: 04-01-2023December El Rashedy Work Phone: [facility] Start: 12-30-2022 End: 12-30-2022 Dwightnirmal Capps Alkaliby Work Phone: [facility] Start: 10-07-2022 End: 10-07-2022 Lourdes M Alkaliby Work Phone: [facility] Start: 07-06-2022 Encounter for genera l adult medical examination without abnormal findings DR MARGAUX BOYKIN [facility] Start: 07-01-2022 End: 07-02-[address] MARGAUX BOYKIN Facility:[facility]1 Start: 07-01-2022 End: 07-02-2022 Encounter for general adult medical examination without abnormal findings DR MARGAUX BOYKIN Facility:[facility] Start: 06-24-2022 End: 06-24-2022 Office outpatient visit 25 minutes Lourdes Capps Alkaliby Work Phone: [facility] Start: 04-16-2022 End: 04-16-2022 Lourdes Capps Alkaliby Work Phone: [facility] Start: 12-31-2021 End: 12-31-2021 Office outpatient visit 25 minutes Lourdes Capps Alkaliby Work Phone: [facility] Start: 09-17-2021 End: 09-17-2021 Office outpatient visit 15 minutes Lourdes Capps Alkaliby Work Phone: [facility] Start: 06-11-2021 End: 06-11-2021 Lobito Pena Richard Work Phone: [facility] Start: 02-26-2021 End: 02-26-2021 Office outpatient visit 15 minutes Lobito Pena Richard Work Phone: [facility] Start: 11-27-2020 End: 11-27-2020 Lobito Pena Richard Work Phone: [facility] Start: 08-21-2020 End: 08-21-2020 Lobito Becky Richard Work Phone: [facility] Start: 06-19-2020 End: 06-19-2020 Office outpatient visit 15 minutes Lobito Pena Richard Work Phone: [facility] Start: 04-30-2020 End: 04-30-2020 Office outpatient visit 15 minutes Lobito Pena Richard Work Phone: [facility] Start: 02-13-2020 End: 02-13-2020 Lobito Pena Richard Work Phone: [facility] Start: 01-02-2020 End: 01-02-2020 Lobito Pena Richard Work Phone: [facility] Start: 11-29-2019 End: 11-29-2019 Lobito Pena Richard Work Phone: [facility] Start: 11-01-2019 End: 11-01-2019 Lobito Pena Richard Work Phone: [facility] Start: 09-27-2019 End: 09-27-2019 Office outpatient new 45 minutes Lobito Ramos Work Phone: [facility] Start: 07-18-2019 End: 07-19-2019 Patient encounter procedure Paulino Soriano Facility:[facility] Start: 05-10-2019 End: 05-11-2019 Patient encounter procedure [facility] Facility:[facility] Start: 05-04-2019 End: 05-05-[address] [facility] Facility:[facility] Start: 11-09-2017 End: 11-10-2017 Ambulatory DEFAULT PHYSICIAN Facility:[facility] Start: 10-26-2017 End: 10-27-2017 Ambulatory DEFAULT PHYSICIAN Facility:[facility] Start: 08-18-2017 End: 08-20-2017 Ambulatory MAN LEO [facility] Procedures Date Procedure Procedure Detail Performing Clinician Start: 11-22-2024 End: 11-22-2024 Computerized ophthalmic imaging retina Huy Marcano Jr, MD Start: 11-22-2024 End: 11-22-2024 Eylea 1mg Pre-filled Syringe Huy Marcano Jr, MD Start: 11-22-2024 Eylea 1mg Pre-filled Syringe Doctor [employer] Start: 11-22-2024 End: 11-22-2024 Intravitreal njx pharmacologic agt spx Huy Marcano Jr, MD Start: 10-19-2024 Mra head w/o contrst material Margaux PUTNAM Work Phone: Start: 10-03-2024 End: 10-03-2024 Computerized ophthalmic imaging retina Fermin Lees MD Start: 10-03-2024 End: 10-03-2024 Eylea Sample Drug Fermin Lees MD Start: 10-03-2024 Eylea Sample Drug Docto r [employer] Start: 10-03-2024 End: 10-03-2024 Intravitreal njx pharmacologic agt spx Fermin Lees MD Start: 08-31-2024 End: 08-31-2024 Arthrocentesis aspir&/inj major jt/bursa w/us Brayden Hayes DO Work Phone: Start: 08-31-2024 Radex shoulder compl ete minimum 2 views Brayden Hayes DO Work Phone: Start: 05-16-2024 End: 05-16-2024 Computerized ophthalmic imaging retina Fermin Lees MD Start: 05-16-2024 End: 05-16-2024 Eylea Sample Drug Fermin Lees MD Start: 05-16-2024 Eylea Sample Drug Docto [employer] Start: 05-16-2024 End: 05-16-2024 Intravitreal njx pharmacologic agt spx Fermin Lees MD Start: 12-16-2023 End: 12-16-2023 Computerized ophthalmic imaging retina Fermin Lees MD Start: 12-16-2023 End: 12-16-2023 Eylea Sample Drug Fermin Lees MD Start: 12-16-2023 End: 12-16-2023 Intravitreal njx pharmacologic agt spx Fermin Lees MD Start: 08-19-2023 End: 08-19-2023 Computerized ophthalmic imaging retina Fermin Lees MD Start: 08-19-2023 End: 08-19-2023 Eylea Sample Drug Fermin Lees MD Start: 08-19-2023 End: 08-19-2023 Fundus Photos No Charge Bilateral Fermin Lees MD Start: 08-19-2023 End: 08-19-2023 Intravitreal njx pharmacologic agt spx Fermin Lees MD Start: 04-01-2023 End: 04-01-2023 Computerized ophthalmic imaging retina Fermin Lees MD Start: 04-01-2023 End: 04-01-2023 Eylea Sample Drug Fermin Lees MD Start: 04-01-2023 End: 04-01-2023 Intravitreal njx pharmacologic agt spx Fermin Lees MD Start: 12-30-2022 End: 12-30-2022 Computerized ophthalmic imaging retina Fermin Lees MD Start: 12-30-2022 End: 12-30-2022 Eylea Sample Drug Fermin Lees MD Start: 12-30-2022 End: 12-30-2022 Intravitreal njx pharmacologic agt spx Fermin Lees MD Start: 10-07-2022 End: 10-07-2022 Computerized ophthalmic imaging retina Fermin Lees MD Start: 10-07-2022 End: 10-07-2022 Eylea Sample Drug Fermin Lees MD Start: 10-07-2022 End: 10-07-2022 Intravitreal njx pharmacologic agt spx Fermin Lees MD Start: 06-24-2022 End: 06-24-2022 Computerized ophthalmic imaging retina Fermin Lees MD Start: 06-24-2022 End: 06-24-2022 Eylea Sample Drug Fermin Lees MD Start: 06-24-2022 End: 06-24-2022 Intravitreal njx pharmacologic agt spx Fermin Lees MD Start: 04-16-2022 End: 04-16-2022 Computerized ophthalmic imaging retina Fermin Lees MD Start: 04-16-2022 End: 04-16-2022 Eylea Sample Drug Fermin Lees MD Start: 04-16-2022 End: 04-16-2022 Intravitreal njx pharmacologic agt spx Fermin Lees MD Start: 12-31-2021 End: 12-31-2021 Computerized ophthalmic imaging retina Fermin Lees MD Start: 12-31-2021 End: 12-31-2021 Eylea Sample Drug Fermin Lees MD Start: 12-31-2021 End: 12-31-2021 Intravitreal njx pharmacologic agt spx Fermin Lees MD Start: 09-17-2021 End: 09-17-2021 Computerized ophthalmic imaging retina Fermin Lees MD Start: 09-17-2021 End: 09-17-2021 Eylea Sample Drug Fermin Lees MD Start: 09-17-2021 End: 09-17-2021 Intravitreal njx pharmacologic agt spx Fermin Lees MD Start: 06-11-2021 End: 06-11-2021 Bevacizumab injection Fermin Lees MD Start: 06-11-2021 End: 06-11-2021 Computerized ophthalmic imaging retina Fermin Lees MD Start: 06-11-2021 End: 06-11-2021 Intravitreal njx pharmacologic agt spx Fermin James Sharma MD Start: 02-26-2021 End: 02-26-2021 Bevacizumab injection Fermin Lees MD Start: 02-26-2021 End: 02-26-2021 Computerized ophthalmic imaging retina Fermin Lees MD Start: 02-26-2021 End: 02-26-2021 Intravitreal njx pharmacologic agt spx Fermin Lees MD Start: 11-27-2020 End: 11-27-2020 Bevacizumab injection Fermin Lees MD Start: 11-27-2020 End: 11-27-2020 Computerized ophthalmic imaging retina Fermin Lees MD Start: 11-27-2020 End: 11-27-2020 Intravitreal njx pharmacologic agt spx Fermin Lees MD Start: 08-21-2020 End: 08-21-2020 Bevacizumab injection Fermin Lees MD Start: 08-21-2020 End: 08-21-2020 Computerized ophthalmic imaging retina Fermin Lees MD Start: 08-21-2020 End: 08-21-2020 Intravitreal njx pharmacologic agt spx Fermin Lees MD Start: 06-19-2020 End: 06-19-2020 Bevacizumab injection Fermin Lees MD Start: 06-19-2020 End: 06-19-2020 Computerized ophthalmic imaging retina Fermin Lees MD Start: 06-19-2020 End: 06-19-2020 Intravitreal njx pharmacologic agt spx Fermin Lees MD Start: 04-30-2020 End: 04-30-2020 Bevacizumab injection Fermin Lees MD Start: 04-30-2020 End: 04-30-2020 Computerized ophthalmic imaging retina Fermin Lees MD Start: 04-30-2020 End: 04-30-2020 Intravitreal njx pharmacologic agt spx Fermin Lees MD Start: 02-13-2020 End: 02-13-2020 Bevacizumab injection Fermin Lees MD Start: 02-13-2020 End: 02-13-2020 Computerized ophthalmic imaging retina Fermin Lees MD Start: 02-13-2020 End: 02-13-2020 Intravitreal njx pharmacologic agt spx Fermin Lees MD Start: 01-02-2020 End: 01-02-2020 Bevacizumab injection Fermin Lees MD Start: 01-02-2020 End: 01-02-2020 Computerized ophthalmic imaging retina Fermin Lese MD Start: 01-02-2020 End: 01-02-2020 Intravitreal njx pharmacologic agt spx Fermin Lees MD Start: 11-29-2019 End: 11-29-2019 Bevacizumab injection Fermin Lees MD Start: 11-29-2019 End: 11-29-2019 Computerized ophthalmic imaging retina Fermin Lees MD Start: 11-29-2019 End: 11-29-2019 Intravitreal njx pharmacologic agt spx Fermin Lees MD Start: 11-01-2019 End: 11-01-2019 Bevacizumab injection Fermin Lees MD Start: 11-01-2019 End: 11-01-2019 Computerized ophthalmic imaging retina Fermin Lees MD Start: 11-01-2019 End: 11-01-2019 Intravitreal njx pharmacologic agt spx Fermin Lees MD Start: 09-27-2019 End: 09-27-2019 Bevacizumab injection Fermin Lees MD Start: 09-27-2019 End: 09-27-2019 Fluorescein angrph w/multiframe i&r uni/bi Fermin Lees MD Start: 09-27-2019 End: 09-27-2019 Intravitreal njx pharmacologic agt spx Fermin Lees MD Plan of Treatment Date Care Activity Detail Author Start: 07-10-2025 Medicare Annual Wellness (AWV) Medicare Annual Wellness (AWV) [facility] Start: 03-13-2025 End: 03-13-2025 Patient encounter procedure 03/13/2025 10:00 AM EDT Office Visit [facility] [address] [place] [id number] Jennifer Shaw PA [address] [place] [address] [facility] Start: 01-31-2025 End: 01-31-2025 Patient encounter procedure 01/31/2025 11:00 AM EDT Office Visit [facility] [address] [place] [id number] Margaux Boykin PA [address] [place] [address] [facility] Start: 01-24-2025 Desire Hirsch/9wks EYL OS FU MAY [facility] Work Phone: Start: 01-03-2025 End: 01-03-2027 Heart Transthoracic Transthoracic Echo (TTE) Complete Echocardiography Routine Benign essential hypertension (CMS/HCC) Chest pain, unspecified type Other fatigue Holosystolic murmur Expected: 01/03/2025 (Approximate), Expires: 01/03/2027 [facility] Work Phone: Comment on above: Expected: 01/03/2025 (Approximate), Expi res: 01/03/2027 Start: 01-03-2025 End: 01-03-2025 Patient encounter procedure 01/03/2025 10:00 AM EDT Office Visit [facility] [address] [place] [id number] Margaux Boykin PA [address] [place] [address] Arrived [facility] Comment on above: Arrived Start: 12-12-2024 Desire Hirsch/5mo IO Eyl OS/MAY [facility] Work Phone: Start: 12-05-2024 End: 12-05-2024 Patient encounter procedure 12/05/2024 9:30 AM EDT Office Visit [facility] [address] [place] [address] Brayden Hayes, DO [address] [place], [place] [id number] [facility] Start: 12-04-2024 End: 12-04-2024 Patient encounter procedure 12/04/2024 9:30 AM EDT Office Visit [facility] [address] [place] [address] Brayden Hayes, DO [address] [place] [address] [facility] Start: 11-28-2024 Desire Hirsch8 Wk IO EYL OS (sample) OCT MAC [facility] Work Phone: Start: 11-22-2024 Counseling about tobacco use Tobacco cessation counseling [facility] Start: 07-10-2024 End: 07-10-2025 CBC W Auto Differential panel - Blood CBC and differential Lab Routine Medicare annual wellness visit, subsequent Benign essential hypertension (CMS/HCC) Expected: 07/10/2024 (Approximate), Expires: 07/10/2025 [facility] Work Phone: Comment on above: Expected: 07/10/2024 (Approximate), Expi res: 07/10/2025 Start: 07-10-2024 End: 07-10-2025 Comprehensive metabolic 2000 panel - Serum or Plasma Comprehensive metabolic panel Lab Routine Medicare annual wellness visit, subsequent Benign essential hypertension (CMS/HCC) Hypocholesterolemia (CMS/HCC) Expected: 07/10/2024 (Approximate), Expires: 07/10/2025 [facility] Comment on above: Expected: 07/10/2024 (Approximate), Expi res: 07/10/2025 Start: 07-10-2024 End: 07-10-2025 Lipid 1996 panel - Serum or Plasma Lipid panel Lab Routine Medicare annual wellness visit, subsequent Benign essential hypertension (CMS/HCC) Hypocholesterolemia (CMS/HCC) Expected: 07/10/2024 (Approximate), Expires: 07/10/2025 [facility] Comment on above: Expected: 07/10/2024 (Approximate), Expi res: 07/10/2025 Start: 07-10-2024 End: 07-10-2025 TSH W/REFLEX TO FT4 TSH W/REFLEX TO FT4 Lab Routine Medicare annual wellness visit, subsequent Acquired hypothyroidism (CMS/HCC) Expected: 07/10/2024 (Approximate), Expires: 07/10/2025 [facility] Comment on above: Expected: 07/10/2024 (Approximate), Expi res: 07/10/2025 Start: 07-10-2024 End: 07-10-2024 Patient encounter procedure [facility] Comment on above: Arrived Start: 07-07-2024 Medicare Annual Wellness (AWV) Medicare Annual Wellness (AWV) [facility] Start: 05-31-2024 End: 05-31-2025 ALLERGY MOLD PANEL, COMPLETE ALLERGY MOLD PANEL, COMPLETE Lab Routine Allergic rhinitis due to fungal spores, unspecified seasonality Expected: 05/31/2024 (Approximate), Expires: 05/31/2025 [facility] Work Phone: Comment on above: Expected: 05/31/2024 (Approximate), Expi res: 05/31/2025 Start: 05-31-2024 End: 05-31-2025 CBC W Auto Differential panel - Blood CBC and differential Lab Routine Allergic rhinitis due to fungal spores, unspecified seasonality Expected: 05/31/2024 (Approximate), Expires: 05/31/2025 [facility] Comment on above: Expected: 05/31/2024 (Approximate), Expi res: 05/31/2025 Start: 05-31-2024 End: 05-31-2024 Patient encounter procedure 05/31/2024 11:30 AM EDT Office Visit [facility] [address] [facility] [address] [place] [address] Margaux Boykin PA [address] [facility] [address] [place] [address] Arrived [facility] Comment on above: Arrived Start: 05-16-2024 Referral to tobacco use cessation clinic Tobacco cessation counseling [facility] Start: 04-09-2024 Influenza vaccination Influenza Vaccine (#1) [facility] Start: 12-16-2023 Smoking cessation education Tobacco cessation counseling [facility] Start: 08-19-2023 Smoking cessation education Tobacco cessation counseling [facility] Start: 10-07-2022 Smoking cessation education Tobacco cessation counseling [facility] Start: 09-17-2021 Smoking cessation education Tobacco cessation counseling [facility] Start: 08-21-2020 Smoking cessation education Tobacco cessation counseling [facility] Start: 06-19-2020 Patient Education Health Information for You: [facility]~ [facility] Work Phone: Start: 04-30-2020 Smoking cessation education Tobacco cessation counseling [facility] Start: 01-02-2020 Smoking cessation education Tobacco cessation counseling [facility] Start: 11-29-2019 Smoking cessation education Tobacco cessation counseling [facility] Start: 11-01-2019 Smoking cessation education Tobacco cessation counseling [facility] Start: 11-01-2019 Patient Education Health Information for You: [facility]~ [facility] Work Phone: Start: 09-27-2019 Smoking cessation education Tobacco cessation counseling [facility] Immunizations Immunization Date Immunization Notes Care Provider Fa [facility] 07-07-2023 Influenza, High-dose Seasonal, Quadrivalent, Preservative Free Alena Ifeoma CALCIMINER Work Phone: [facility] 07-07-2023 influenza virus vacc ine, unspecified formulation Alena Ifeoma CALCIMINER Work Phone: [facility] 06-22-2022 influenza, high dose seasonal, preservative-free Alena Ifeoma CALCIMINER Work Phone: [facility] 06-11-2021 influenza, high dose seasonal, preservative-free Alena Ifeoma CALCIMINER Work Phone: [facility] 2020 influenza, high dose seasonal, preservative-free Alena Ifeoma CALCIMINER Work Phone: [facility] 05-24-2019 influenza, high dose seasonal, preservative-free Alena Ifeoma CALCIMINER Work Phone: [facility] 05-04-2018 seasonal influenza, intradermal, preservative free Alena Ifeoma CALCIMINER Work Phone: [facility] 04-23-2016 pneumococcal conjuga te vaccine, 13 valent Alena Ifeoma CALCIMINER Work Phone: [facility] 09-06-2015 influenza, injectabl e, quadrivalent, preservative free Alena Ifeoma CALCIMINER Work Phone: [facility] 07-18-2015 zoster vaccine, live Alena Ifeoma CALCIMINER Work Phone: [facility] 01-29-2015 pneumococcal polysaccharide vaccine, 23 valent Alena Ifeoma CALCIMINER Work Phone: [facility] 06-09-2014 influenza, seasonal, injectable, preservative free Alena Ifeoma CALCIMINER Work Phone: [facility] 05-10-2013 seasonal influenza, intradermal, preservative free Alena Ifeoma CALCIMINER Work Phone: [facility] Payers Date Payer Category Payer Medicaid [employer] MED[employer]ARE A DVANTAGE [id number] 2024 Medicare O [id number] 2022 Medicare (Managed Care) [facility] [id number] 2019 Private Health Insurance 1959 Medicare [id number] 1945 Unknown [id number]. 196 1943 Unknown [id number]. 196 1943 Unknown [id number] [id number]. 196 1943 Unknown [id number] [id number]. 593 1943 Unknown [id number] [id number]. 1347 1943 Unknown [id number] [id number]. 1347 1943 Unknown [id number] [id number]. 1346 1943 Unknown [id number] 2.16.840.1.409649.3.579.2. 7 1943 Unknown [id number] 2.16.840.1.149714.3.579.2. 1259 1943 Unknown [id number] [id number]. 1259 1943 Unknown [id number] [id number]. 1259 1943 Unknown [id number] [id number]. 1259 1943 Unknown [id number] [id number]. 1259 1943 Unknown [id number]. 1259 Unknown Social History Date Type Detail Facility Start: 03-15-2023 Tobacco smoking status MEIS Ex-smoker [facility] History of tobacco use Current smoker [facility] History of tobacco use Cigarette Smoker [facility] Start: 03-15-2023 Tobacco use and exposure Smokeless tobacco non-user [facility] Start: 03-13-2024 End: 01-03-2025 Alcoholic beverage intake Not Asked [facility] Start: 03-13-2024 End: 01-03-2025 History of Social function [facility] Start: 03-13-2024 End: 01-03-2025 Tobacco use panel [facility] Start: 07-07-2023 Alcohol Comment Caffeine intak e: coffee [facility] Start: 1945 Sex assigned at Not on file [facility] Start: 10-03-2024 End: 12-26-2024 Tobacco smoking status NHIS Unknown if ever smoked [facility] Start: 10-03-2024 Alcohol intake (observable entity) Alcohol Use Details [facility] Start: 10-03-2024 Health-related behavior (observable entity) Caffeine Use Details [facility] Start: 10-03-2024 Tobacco use and exposure Smoking Tobacco Use Details [facility] Sex Assigned At Female [facility] Work Phone: Start: 12-26-2024 Alcohol intake Alcohol Use Details C [employer] [facility] NEGATED: Highlighted rowStart: 10-03-2024 History of tobacco use Ex-cigarette smoker [facility] Goals Date Patient Goal Desired Activity /State Personal health goal Functional Status Date Assessment Result Facility 01-03-2025 Patient Health Quest ionnaire 2 item (PHQ-2) [Reported] [facility] Clinical Notes 05-24-2024 to 01-03-2025 INDY Paredes - 01/03/2025 10:00 AM EDT Note Date & Type Note Facility 01-03-2025 History of Presen t illness Narrative Images from the original note were not included. Subjective Patient ID: Desire Hirsch is a 79 y.o. female who presents for heartburn. Desire is present today for evaluation of possible heartburn. Admits it started on Wednesday and it is happening off/on, she has tired TUMS and it helps very little. She has burning sensation along left side of chest. Nothing really seems to help too much. Not worse or better after eating or drinking. Not worse when laying down at night. Worse in the late afternoon. Lasts for a few hours. Notices it more when she is moving around. Denies shortness of breath, sweating or nausea. Denies any acid or food material coming back up into her mouth. C/o fatigue, long standing, but seems to have worsened lately. Has been more stressed lately, Has been moving furniture and cleaning a lot lately. Admits to mild cough over the last few weeks to month. Admits to mild phlegm. states, when she coughs, she coughs, she will carry on for a while. Current Outpatient Medications on File Prior to Visit Medication Sig Dispense Refill azelastine (Optivar) 0.05 % ophthalmic solution Administer 1 drop into both eyes Daily Loteprednol Etabonate 0.5 % gel Apply 1 drop to both eyes in the morning and 1 drop before bedtime. acetaminophen (Tylenol) 500 MG tablet Take 2 tablets by mouth 1 (one) time each day. Ascorbic Acid (vitamin C) 250 MG tablet Take 250 mg by mouth in the morning. cetirizine (ZyrTEC ALLERGY) 10 MG tablet Take 10 mg by mouth Daily as needed. eye vitamin supplement (Ocuvite Eye Health Formula) capsule Take 1 capsule by mouth in the morning. Glucosamine-Chondroitin (Osteo Bi-Flex Regular Strength) 250-200 MG tablet Take 1 tablet by mouth 1 (one) time each day. levothyroxine (Synthroid, Levoxyl) 50 MCG tablet Take 1 tablet (50 mcg) by mouth in the morning. 100 tablet 3 lisinopril 10 MG tablet TAKE 1 TABLET BY MOUTH EVERY DAY IN THE MORNING 100 tablet 3 LORazepam (Ativan) 0.5 MG tablet Take 1 tablet (0.5 mg) by mouth every 6 (six) hours if needed for anxiety or sedation 30 tablet 0 omega-3 acid ethyl esters (Lovaza) 1 g capsule Take 1 g by mouth in the morning. Polyethyl Glyc-Propyl Glyc PF (Systane Preservative Free) 0.4-0.3 % solution Probiotic Product ([facility]) Take 1 tablet by mouth if needed. simvastatin (Zocor) 20 MG tablet TAKE 1 TABLET BY MOUTH EVERY DAY IN THE EVENING FOR 100 DAYS 90 tablet 4 [DISCONTINUED] fluticasone (Flonase) 50 MCG/ACT nasal spray ADMINISTER 1-2 SPRAYS INTO EACH NOSTRIL IN THE MORNING. SHAKE GENTLY. BEFORE FIRST USE, PRIME PUMP. AFTER USE, CLEAN TIP AND REPLACE CAP. 48 mL 1 [DISCONTINUED] LORazepam (Ativan) 0.5 MG tablet Take 1 tablet (0.5 mg) by mouth every 6 (six) hours if needed for anxiety or sedation 30 tablet 0 [DISCONTINUED] triamcinolone (Kenalog) 0.1 % ointment Apply 1 application topically 2 (two) times a day as needed for rash No current facility-administered medications on file prior to visit. I have reviewed and reconciled the history and medication list with the patient today. Allergies Allergen Reactions Glycerin Itching and Swelling Sulfa Antibiotics Itching and Rash Social History Tobacco Use Smoking status: Former Types: Cigarettes Smokeless tobacco: Never Substance Use Topics Drug use: Never Family History Problem Relation Name Age of Onset Melanoma Neg Hx Past Medical History: Diagnosis Date Abdominal pain Actinic keratosis Acute sinus infection Benign paroxysmal positional vertigo Bronchitis Cerebral aneurysm, nonruptured COVID-19 07/10/2021 Essential hypertension, benign (CMS/HCC) Hyperlipidemia LDL goal <130 (CMS/HCC) Hypothyroidism (acquired) (CMS/HCC) Insomnia, unspecified Lumbar back pain Osteoporosis (CMS/HCC) Past Surgical History: Procedure Laterality Date BACK SURGERY 05/[address] ANGIOGRAM CHEST 09/24/2017 CT ANGIOGRAM CHEST [facility] 10/12/2017 MR ANGIOGRAM HEAD WO IV CONTRAST 07/19/2023 MR ANGIOGRAM HEAD WO IV CONTRAST MR ANGIOGRAM HEAD WO IV CONTRAST 10/19/2024 MR ANGIOGRAM HEAD WO IV CONTRAST THYROIDECTOMY 2009 TUBAL LIGATION Bilateral VARICOSE VEIN SURGERY VEIN STRIPPING Visit Vitals BP 134/82 Pulse 90 Resp 16 Ht 5' 1 Wt 133 lb 3.2 oz SpO2 99% BMI 25.17 kg/m Smoking Status Former BSA 1.61 m Review of Systems Constitutional: Positive for fatigue. Negative for chills and fever. Respiratory: Negative for cough, shortness of breath and wheezing. Cardiovascular: Positive for chest pain (Points to left side of chest). Negative for palpitations and leg swelling. Gastrointestinal: Negative for abdominal pain, constipation, diarrhea, nausea and vomiting. Musculoskeletal: Positive for back pain. Skin: Negative for rash. Psychiatric/Behavioral: Increased stress. Objective Physical Exam Constitutional: General: She is not in acute distress. Appearance: Normal appearance. She is well-developed. HENT: Head: Normocephalic and atraumatic. Eyes: General: No scleral icterus. Conjunctiva/sclera: Conjunctivae normal. Cardiovascular: Rate and Rhythm: Normal rate and regular rhythm. Heart sounds: Murmur (Blowing) heard. Systolic murmur is present with a grade of 3/6. Pulmonary: Effort: Pulmonary effort is normal. No respiratory distress. Breath sounds: Normal breath sounds. No wheezing, rhonchi or rales. Chest: Chest wall: Tenderness (Over inferior half of left sternocostal junctions) present. Musculoskeletal: Thoracic back: Scoliosis present. Skin: General: Skin is warm and dry. Neurological: General: No focal deficit present. Mental Status: She is alert and oriented to person, place, and time. Psychiatric: Mood and Affect: Mood is anxious. Behavior: Behavior normal. Assessment/Plan Diagnoses and all orders for this visit: Sternocostal pain - naproxen (Naprosyn) 375 MG tablet; Take 1 tablet (375 mg) by mouth Daily as needed for mild pain (pain) for up to 14 days Take with food Cannot tolerate steroids. Make it so she cannot sleep. Start low dose Naproxen for next 7-14 days, take with food. Will keep at the lower dosage to decrease risk of adverse GI s/e. 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 Symptoms do not seem consistent with a flare of reflux or gastritis type symptoms. Due to h/o gastritis, will monitor closely, rechecking at her follow up appointment. Benign essential hypertension (CMS/HCC) - Transthoracic Echo (TTE) Complete; Future Patient's blood pressure is currently stable. Continue with current medications and I will continue to monitor. Goal BP remains less than 130/80. Anxiety - FLUoxetine (PROzac) 10 MG capsule; Take 1 capsule (10 mg) by mouth Daily Reviewed how stress/anxiety can cause physical symptoms. Discussed this class of medication with the patient. Explained potential benefits and potential risks of this class of medication. Pt is agreeable to starting a new medication at this time. New prescription sent to the pharmacy for the patient. Will recheck in 3-4 weeks or sooner if needed. Any worsening of symptoms the patient is to stop the medication immediately and contact our office. ER if concerns. She does have Lorazepam on hand if needed, only takes one a week at most. Chest pain, unspecified type - Transthoracic Echo (TTE) Complete; Future ECG showed Sinus Rhythm, Normal ECG. Compared to previous ECG from 09/19/2018. Other fatigue - Transthoracic Echo (TTE) Complete; Future Worsening fatigue noted. ECHO ordered. Holosystolic murmur - Transthoracic Echo (TTE) Complete; Future Louder than previous. Will obtain ECHO for further evaluation of blowing systolic murmur. Assess heart valves and check EF. Exudative age-related macular degeneration, bilateral, stage unspecified (CMS/HCC) This is a chronic medical condition that is stable since last assessment. Follow up in about 4 weeks (around 01/31/2025) for Medication Follow Up. 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 AMD The 79 year old female presents for evaluation of AMD in the right eye and left eye. Patient noticed about a week ago that her vision had gotten blurrier on the grid on the right side of it patient noticed changed and black spots in it. Vision hasn't worsened since last week ago. Patient denies flashes of light, eye pain or new floaters. Patient reports right eye remaining stable. Patient was on a 5 month intraval and last treated with Eylea on 05/16 (4 months ago). CNV The 79 year old patient presents for evaluation of CNV in the left eye. Patient states stable vision since last visit. Patient denies floaters, flashes of light and ocular pain. Patient uses Systane eyedrops for dry eye. retinal neovascularization The 6 0 year old patient presents for evaluation of retinal neovascularization in the left eye. Patient reports worsened vision in both eyes since her last appointment due to mild blurriness/cloudiness. Patient denies flashes, floaters, and eye pain. retinal neovascularization The 6 0 year old patient presents for evaluation of retinal neovascularization in the left eye. Patient reports gradual decrease in vision over the last 2 months. Patient complains of frequent eye itchiness and watering. Patient denies flashes and floaters. Complaints of quick, sharp eye pain in the left eye that appears every few weeks. No other complaints at this time. 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 retinal neovascularization The 5 9 year old female presents for evaluation of retinal neovascularization in the left eye with treatment of Eylea. 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 Sample of Eylea OS. Pt reports severe dry eye. PT reports vision is abut the same as last visit and no flashes of light or floaters or ocular pain. Retinal Neovascularization The 5 9 year old female presents for 10 week evaluation . Patient states that she wanted to get new glasses but she can not get new ones till September. Patient states she is having a difficult time reading. Patient denies any floaters or flashes of light. Patient also is complaining of dry and itchy eyes. Retinal neovascularization The 5 8 year old female presents for 4 month follow up. Patient states she thinks she needs new glasses. Her current glasses are only about a year old. Patient states her vision seems cloudy. retinal neovascularization Patie nt reports no changes to her vision since her last visit. Patient denies ocular pain, flashes of light or floaters in both eyes. stable vision The patient stat es stable vision in both eyes, since last visit. It affects both near and distance vision. The symptom is all of the time. In addition, the condition is associated with daily activities and chores. 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 Possible injection, Avastin OS. sensitivity to light The patient complains of sensitivity to light in both eyes since last visit about 3 months ago. It affects both near and distance vision. Patient stats that she feels like she needs a new prescription for her glasses. Patient denies eye pain, flashes and floaters. retinal neovascularization The 5 7 year old female presents for evaluation of retinal neovascularization in the left eye. vision improvement The patient s tates vision improvement in both eyes, since last visit. It affects both near and distance vision. The symptom is all of the time. Patient denies floaters. retinal neovascularization The 5 7 year old female presents for evaluation of retinal neovascularization in the left eye. Injection only Avastin left eye. retinal neovascularization The 5 7 year old female presents for evaluation of retinal neovascularization in the left eye. vision improvement The patient s tates vision improvement in the left eye. It affects both near and distance vision. The symptom is all of the time. In addition, the condition is associated with daily activities and chores. Patient denies flashes and floaters. stable vision The patient stat es stable vision in the right eye. It affects both near and distance vision. The symptom is all of the time. The condition is unchanged. In addition, the condition is associated with daily activities and chores. Retinal neovascularization The 5 7 year old female presents for retinal neovascularization, unspecified in the left eye. AVN INJ OS. stable vision The patient repo rts stable vision in both eyes since last visit about 7 week(s) ago. It occurs constantly. It affects both near and distance vision. In addition, the condition is associated with daily activities and chores. Patient denies flashes and floaters. retinal neovascularization The 5 6 year old female presents for retinal neovascularization in the left eye. improvement in distortion The indy macario reports an improvement in distortion in the left eye x 2 weeks. The onset was gradual. It affects both near and distance vision. The symptom is all of the time. The condition is mild. In addition, the condition is associated with daily activities and chores. Patient denies flashes and floaters. Patient reports no visual changes in the right eye. retinal neovascularization The 5 6 year old female presents for evaluation of retinal neovascularization in the left eye. improved vision The patient repo rts improved vision in the left eye. It started about 6 week(s) ago. It occurs constantly. The onset was gradual. The symptom is all of the time. The condition is described as distortion. Patient denies decreased vision and floaters in either eye since her last visit. increase in vision retinal neovascularization Injection Only of Av astin for retinal law The 74 year old female presents for an Injection Only of Avastin for retinal neovascularization in the left eye. Patient reports no visual changes in either eye since last visit 4 weeks ago. Retinal neovascularization The 5 6 year old female presents for retinal neovascularization in the left eye. cloudy vision The patient repo rts cloudy vision in the left eye since last visit about 5 week(s) ago. It occurs constantly. It affects both near and distance vision. In addition, the condition is associated with daily activities and chores. Patient denies flashes and floaters. Patient reports no vision changes in the right eye. cloudy vision The patient repo rts cloudy vision in the left eye x 3-4 days (noticeable only when right eye is covered). The onset was sudden. It affects both near and distance vision. The symptom is all of the time. The condition is severe. In addition, the condition is associated with daily activities and chores. Patient denies flashes and floaters. Patient reports before the cloudiness in the left eye she noticed she could not read very well and was not sure which eye x 2 months. macular edema The 74 year old female referred by Dr. Irwin for a sudden onset of possible macular edema in the left eye. 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 OU Condition: established, stable assessment Pseudophakia impression Pseudophakia: Z96.1. OU Conditio n: established, stable assessment Essential (primary) hypertension impression Essential (primary) hypertension : I10. 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 Patient noticed about a week ago that her vision had gotten blurrier on the grid on the right side of it patient noticed changed and black spots in it. Vision hasn't worsened since last week ago. Patient denies flashes of light, eye pain or new floaters. Patient reports right eye remaining stable. Patient was on a 5 month intraval and last treated with Eylea on 05/16 (4 months ago). CNV The 79 year old patient presents for evaluation of CNV in the left eye. Patient states stable vision since last visit. Patient denies floaters, flashes of light and ocular pain. Patient uses Systane eyedrops for dry eye. retinal neovascularization The 6 0 year old patient presents for evaluation of retinal neovascularization in the left eye. Patient reports worsened vision in both eyes since her last appointment due to mild blurriness/cloudiness. Patient denies flashes, floaters, and eye pain. retinal neovascularization The 6 0 year old patient presents for evaluation of retinal neovascularization in the left eye. Patient reports gradual decrease in vision over the last 2 months. Patient complains of frequent eye itchiness and watering. Patient denies flashes and floaters. Complaints of quick, sharp eye pain in the left eye that appears every few weeks. No other complaints at this time. 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 retinal neovascularization The 5 9 year old female presents for evaluation of retinal neovascularization in the left eye with treatment of Eylea. 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 Sample of Eylea OS. Pt reports severe dry eye. PT reports vision is abut the same as last visit and no flashes of light or floaters or ocular pain. Retinal Neovascularization The 5 9 year old female presents for 10 week evaluation . Patient states that she wanted to get new glasses but she can not get new ones till September. Patient states she is having a difficult time reading. Patient denies any floaters or flashes of light. Patient also is complaining of dry and itchy eyes. Retinal neovascularization The 5 8 year old female presents for 4 month follow up. Patient states she thinks she needs new glasses. Her current glasses are only about a year old. Patient states her vision seems cloudy. retinal neovascularization Patie nt reports no changes to her vision since her last visit. Patient denies ocular pain, flashes of light or floaters in both eyes. stable vision The patient stat es stable vision in both eyes, since last visit. It affects both near and distance vision. The symptom is all of the time. In addition, the condition is associated with daily activities and chores. 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 Possible injection, Avastin OS. sensitivity to light The patient complains of sensitivity to light in both eyes since last visit about 3 months ago. It affects both near and distance vision. Patient stats that she feels like she needs a new prescription for her glasses. Patient denies eye pain, flashes and floaters. retinal neovascularization The 5 7 year old female presents for evaluation of retinal neovascularization in the left eye. vision improvement The patient s tates vision improvement in both eyes, since last visit. It affects both near and distance vision. The symptom is all of the time. Patient denies floaters. retinal neovascularization The 5 7 year old female presents for evaluation of retinal neovascularization in the left eye. Injection only Avastin left eye. retinal neovascularization The 5 7 year old female presents for evaluation of retinal neovascularization in the left eye. vision improvement The patient s tates vision improvement in the left eye. It affects both near and distance vision. The symptom is all of the time. In addition, the condition is associated with daily activities and chores. Patient denies flashes and floaters. stable vision The patient stat es stable vision in the right eye. It affects both near and distance vision. The symptom is all of the time. The condition is unchanged. In addition, the condition is associated with daily activities and chores. Retinal neovascularization The 5 7 year old female presents for retinal neovascularization, unspecified in the left eye. AVN INJ OS. stable vision The patient repo rts stable vision in both eyes since last visit about 7 week(s) ago. It occurs constantly. It affects both near and distance vision. In addition, the condition is associated with daily activities and chores. Patient denies flashes and floaters. retinal neovascularization The 5 6 year old female presents for retinal neovascularization in the left eye. improvement in distortion The indy macario reports an improvement in distortion in the left eye x 2 weeks. The onset was gradual. It affects both near and distance vision. The symptom is all of the time. The condition is mild. In addition, the condition is associated with daily activities and chores. Patient denies flashes and floaters. Patient reports no visual changes in the right eye. retinal neovascularization The 5 6 year old female presents for evaluation of retinal neovascularization in the left eye. improved vision The patient repo rts improved vision in the left eye. It started about 6 week(s) ago. It occurs constantly. The onset was gradual. The symptom is all of the time. The condition is described as distortion. Patient denies decreased vision and floaters in either eye since her last visit. increase in vision retinal neovascularization Injection Only of Av astin for retinal alw The 74 year old female presents for an Injection Only of Avastin for retinal neovascularization in the left eye. Patient reports no visual changes in either eye since last visit 4 weeks ago. Retinal neovascularization The 5 6 year old female presents for retinal neovascularization in the left eye. cloudy vision The patient repo rts cloudy vision in the left eye since last visit about 5 week(s) ago. It occurs constantly. It affects both near and distance vision. In addition, the condition is associated with daily activities and chores. Patient denies flashes and floaters. Patient reports no vision changes in the right eye. cloudy vision The patient repo rts cloudy vision in the left eye x 3-4 days (noticeable only when right eye is covered). The onset was sudden. It affects both near and distance vision. The symptom is all of the time. The condition is severe. In addition, the condition is associated with daily activities and chores. Patient denies flashes and floaters. Patient reports before the cloudiness in the left eye she noticed she could not read very well and was not sure which eye x 2 months. macular edema The 74 year old female referred by Dr. Irwin for a sudden onset of possible macular edema in the left eye. 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 Impression/Plan Related to Essen tial (primary) hypertension Impression/Plan Related to Glauc emma suspect of both eyes Impression/Plan Related to Essen tial (primary) hypertension Impression/Plan Related to Pseud ophakia Impression/Plan Related to Vitre ous degeneration, bilateral Impression/Plan Related to Exuda tive age-related macular degeneration of left eye with active choroidal neovascularization Impression/Plan Related to Essen tial (primary) hypertension Impression/Plan Related to Vitre ous degeneration, bilateral Impression/Plan Related to Pseud ophakia Impression/Plan Related to Retin al neovascularization, unspecified, left eye Impression/Plan Related to Essen tial (primary) hypertension Impression/Plan Related to Pseud ophakia Impression/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 Impression/Plan Related to Vitre ous degeneration, bilateral Impression/Plan Related to Retin al neovascularization, unspecified, left eye Impression/Plan Related to Retin al neovascularization, unspecified, left eye Return in 3 months w nikolai Ansari MD for IO EYL(SAMPLE) OS/OCT OU Related to Retinal neovascularization, unspecified, left eye Impression/Plan Related to Retin al neovascularization, unspecified, left eye Return in 3 months w nikolai Ansari MD for IO EYL(SAMPLE) OS/OCT OU Related to Retinal neovascularization, unspecified, left eye Impression/Plan Related to Retin al neovascularization, unspecified, left eye Impression/Plan Related to Pseud ophakia Impression/Plan Related to Retin al neovascularization, unspecified, left eye Impression/Plan Related to Vitre ous degeneration, bilateral Impression/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 Impression/Plan Related to Essen tial (primary) hypertension Return in 10 week(s) with Lourdes Ansari MD for IO EYL OS w/OCT Related to Retinal neovascularization, unspecified, left eye Impression/Plan Related to Retin al hemorrhage, left eye Impression/Plan Related to Pseud ophakia Impression/Plan Related to Essen tial (primary) hypertension Impression/Plan Related to Retin al neovascularization, unspecified, left eye Return in Related to Retin al neovascularization, unspecified, left eye Impression/Plan Related to Retin al neovascularization, unspecified, left eye Impression/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 Impression/Plan Related to Essen tial (primary) hypertension Impression/Plan Related to Pseud ophakia Impression/Plan Related to Vitre ous degeneration, bilateral Return in 3 months w nikolai Ansari MD for follow up, OCT, possible Eylea (sample) OS Related to Retinal neovascularization, unspecified, left eye Impression/Plan Related to Essen tial (primary) hypertension Impression/Plan Related to Pseud ophakia Impression/Plan Related to Vitre ous degeneration, bilateral Impression/Plan Related to Retin al neovascularization, unspecified, left eye Return in Related to Retin al neovascularization, unspecified, left eye Impression/Plan Related to Retin al neovascularization, unspecified, left eye Impression/Plan Related to Vitre ous degeneration, bilateral Impression/Plan Related to Pseud ophakia Impression/Plan Related to Essen tial (primary) hypertension Return in Related to Retin al neovascularization, unspecified, left eye Impression/Plan Related to Essen tial (primary) hypertension Impression/Plan Related to Pseud ophakia Impression/Plan Related to Vitre ous degeneration, bilateral Impression/Plan Related to Retin al neovascularization, unspecified, left eye Return in Related to Retin al neovascularization, unspecified, left eye Impression/Plan Related to Retin al neovascularization, unspecified, left eye Return in Related to Retin al neovascularization, unspecified, left eye Impression/Plan Related to Essen tial (primary) hypertension Impression/Plan Related to Pseud ophakia Impression/Plan Related to Vitre ous degeneration, bilateral Impression/Plan Related to Retin al neovascularization, unspecified, left eye Return in 2 months w nikolai Ramos MD for follow up, OCT, possible Avastin OS Related to Retinal neovascularization, unspecified, left eye Impression/Plan Related to Pseud ophakia Impression/Plan Related to Essen tial (primary) hypertension Impression/Plan Related to Vitre ous degeneration, bilateral Impression/Plan Related to Retin al neovascularization, unspecified, left eye Return in 6-8 week(s ) with Lobito Ramos MD for INJ AVN OS w/OCT Related to Retinal neovascularization, unspecified, left eye Impression/Plan Related to Retin al neovascularization, unspecified, left eye 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, left eye Impression/Plan Related to Vitre ous degeneration, bilateral Impression/Plan Related to Pseud ophakia Impression/Plan Related to Essen tial (primary) hypertension Return in 8 week(s) with Lobito Ramos MD for follow up exam and OCT, poss Laura OS Related to Retinal neovascularization, unspecified, left eye - 2 Months, Lobito Ramos MD for eval/OCT, poss Laura OS Impression/Plan Related to Retin al neovascularization, unspecified, left eye Return in 4-6 week(s ) with Lobito Ramos MD for follow up exam and OCT, poss Laura OS Related to Retinal neovascularization, unspecified, left eye Impression/Plan Related to Retin al neovascularization, unspecified, left eye - 4-6 week(s) Loco Ramos MD for eval/OCT, poss Laura OS Return in 4 week(s) with Lobito Ramos MD for follow up exam/OCT, poss Avastin OS Related to Retinal neovascularization, unspecified, left eye Impression/Plan Related to Retin al neovascularization, unspecified, left eye Return in 4 week(s) with Lobito Ramos MD for Avastin OS with OCT Related to Retinal neovascularization, unspecified, left eye - [address] Abiola ruiz for Avastin OS with OCT Impression/Plan Related to Retin al neovascularization, unspecified, left eye Return in 4 week(s) with Lobito Ramos MD for IO/Avastin OS with OCT. 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, left eye Impression/Plan Related to Pseud ophakia Impression/Plan Related to Essen tial (primary) hypertension Impression/Plan Related to Vitre ous degeneration, bilateral Impression/Plan Related to Retin al neovascularization, unspecified, left eye [facility] Work Phone: [phone] History of Present illness Narrative* DEEJAY Marcus - 08/31/2024 9:30 AM ESTAssociated Order(s): L Inj/Asp: R glenohumeral; L Inj/Asp: R subacromial bursa Post-Procedure Diagnose(s): Right shoulder pain, unspecified chronicity L Inj/Asp: R glenohumeral on 08/31/2024 10:27 AM Indications: pain Details: 25 G needle, ultrasound-guided Medications: 1 mL betamethasone acetate-betamethasone sodium phosphate 6 (3-3) MG/ML Consent was given by the patient. L Inj/Asp: R subacromial bursa on 08/31/2024 10:28 AM Indications: pain Details: 25 G needle, ultrasound-guided Medications: 1 mL betamethasone acetate-betamethasone sodium phosphate 6 (3-3) MG/ML Consent was given by the patient. * Brayden Hayes DO - 08/31/2024 9:30 AM EST Images from the original note were not included. @MALVINTE@ Desire Pena Torrey is a 79 y.o. female who presents for Pain of the Right Shoulder HPI: History of Present Illness The patient is an 79-year-old female who presents as a new patient today for evaluation of her right shoulder. She is right-handed and has been experiencing diffuse pain in her right shoulder for approximately 6 months, with no recollection of any specific injury. The pain intensifies during sleep, making it difficult for her to find a comfortable position in bed. Additionally, activities such as running the sweeper or reaching back for the seatbelt in the car exacerbate the discomfort. She has sought relief through massage therapy, chiropractic treatments, and the application of heat. Dxyj-aok-mfbuetu medication Aleve has provided some minimal relief. SUBJECTIVE: MEDICATIONS: Current Outpatient Medications Medication Instructions acetaminophen (Tylenol) 500 MG tablet 2 tablets, Daily cetirizine (ZYRTEC ALLERGY) 10 mg, Daily PRN eye vitamin supplement (Ocuvite Eye Health Formula) capsule 1 capsule, Daily fluticasone (Flonase) 50 MCG/ACT nasal spray 1-2 sprays, Each Nostril, Daily, Shake gently. Before first use, prime pump. After use, clean tip and replace cap. Glucosamine-Chondroitin (Osteo Bi-Flex Regular Strength) 250-200 MG tablet 1 tablet, Daily levothyroxine (SYNTHROID, LEVOXYL) 50 mcg, Oral, Daily RT lisinopril 10 mg, Oral, Every morning LORazepam (ATIVAN) 0.5 mg, Oral, Every 6 hours PRN omega-3 acid ethyl esters (LOVAZA) 1 g, Daily Polyethyl Glyc-Propyl Glyc PF (Systane Preservative Free) 0.4-0.3 % solution Probiotic Product (DAVIDsTEA PO) 1 tablet, As needed simvastatin (Zocor) 20 MG tablet TAKE 1 TABLET BY MOUTH EVERY DAY IN THE EVENING FOR 100 DAYS triamcinolone (Kenalog) 0.1 % ointment 1 application , 2 times daily PRN vitamin C 250 mg, Daily ALLERGIES: Allergies Allergen Reactions Glycerin Itching and Swelling Sulfa Antibiotics Itching and Rash SURGICAL HISTORY: Past Surgical History: Procedure Laterality Date BACK SURGERY 05/[address] ANGIOGRAM CHEST 09/24/2017 CT ANGIOGRAM CHEST [facility] DATA LEGACY EGD 10/12/2017 MR ANGIOGRAM HEAD WO IV CONTRAST 07/19/2023 MR ANGIOGRAM HEAD WO IV CONTRAST THYROIDECTOMY 2009 TUBAL LIGATION Bilateral VARICOSE VEIN SURGERY VEIN STRIPPING FAMILY HISTORY: Family History Problem Relation Name Age of Onset Melanoma Neg Hx SOCIAL HISTORY: Social History Tobacco Use Smoking status: Former Types: Cigarettes Smokeless tobacco: Never Substance Use Topics Drug use: Never Depression: Not at risk (07/10/2024) PHQ-2 PHQ-2 Score: 0 REVIEW OF SYMPTOMS: Review of Systems The review of systems, history and current medications list are all reviewed today. OBJECTIVE: Visit Vitals Temp 97.5 F Ht 5' 1 Wt 134 lb BMI 25.32 kg/m Smoking Status Former BSA 1.62 m Physical Exam Alert and oriented, no acute distress. Mood and affect are appropriate. Ambulating independently. Gait is nonantalgic. is present. RIGHT SHOULDER Raises arm overhead, but not as high as the left. Crepitus with passive ROM. ER 45 with arm abducted. Positive weakness with forward flexion and ER. No ER lag. Negative belly press. Both shoulders can internally rotate to T12. LEFT SHOULDER Raises arm overhead. Crepitus with passive ROM. ER 70 with arm abducted. Mild weakness with forwardflexion. Ortho Exam Results Imaging 4 views right shoulder, Grashey/Zanca/outlet/axillary, taken today and saved to the permanent medical record are reviewed. Superior migration of humeral head. Significant GH joint space narrowing. Spurring off superior glenoid with acetabularization of the acromion. ASSESSMENT AND PLAN: I reviewed the history, physical exam, diagnostic studies, and diagnosis with the patient. Assessment & Plan 1. Cuff tear arthropathy, right shoulder A therapeutic intervention involving the administration of cortisone into the shoulder joint was initiated today. She is advised to monitor her symptoms over the next week to assess the effectivenessof this treatment. If the current treatment proves beneficial, it may be repeated every few months as necessary. However, if there is no improvement, alternative treatment strategies will be considered. In the event that her shoulder pain becomes intolerable, surgical intervention in the form of a shoulder replacement may be discussed as a last resort. A limited ultrasound examination of the right shoulder was performed. The patient's hand was placedin the lap in the supinated position. The biceps tendon, subscapularis, and pectoralis major were visualized at the anterior aspect of the shoulder. The acromioclavicular joint was then identified atthe superior aspect of the shoulder. The patient's hand was then placed behind the back near the waist. The probe was moved to the lateral aspect of the shoulder and the supraspinatus and infraspinatus were visualized in the subacromial space. The anterolateral aspect of the shoulder was then prepped with alcohol and betadine. Using ultrasound guidance, a 25-gauge 1-1/2 inch needle was inserted into the subacromial space adjacent to the supraspinatus. A mixture of 1 mL of 1% plain lidocaine and1 mL of betamethasone was then injected. The patient's arm was then placed back at the side and theprobe was moved to the posterior aspect of the shoulder. The glenohumeral joint was visualized. Thearea was prepped with alcohol and betadine. Using ultrasound guidance, a new 25 gauge 1-1/2 inch needle was inserted into the glenohumeral joint from a posterior approach. A mixture of 1 mL of 1% plain lidocaine and 1 mL of betamethasone was then injected. The patient tolerated this well. A Band-Aid was applied. The patient was instructed to ice the shoulder and to watch for any signs of infection including redness, increased pain, drainage from the injection site, fever, chills, etc. The patient was instructed to call the office if he/she experiences any adverse reaction to the injection. Follow-up The patient is scheduled for a follow-up visit in 3 months, or sooner if her condition deteriorates. A total of 45-59 minutes was spent on this patient encounter which included chart review, check in,nurse triage, history taking, physical examination, diagnostic study review, patient counseling anddiscussion, entering information into the patient's medical record, and coordinating patient care. Diagnoses and all orders for this visit: Right shoulder pain, unspecified chronicity - XR shoulder 2+ views right - L Inj/Asp: R glenohumeral - L Inj/Asp: R subacromial bursa Brayden Hayes D.O. Attestation This note was created using voice recognition through [employer]. documented in this encounterFreeman Health [id number] History of Present illness Narrative* INDY Paredes - 07/10/2024 9:00 AM EST Images from the original note were not included. HPI Med Refill Additional comments: Levothyroxine Last edited by Alena Dia LPN on 07/10/2024 9:03 AM. Subjective Patient ID: Desire Hirsch is a 79 y.o. female who presents for Med Refill (Levothyroxine). Here for Medicare Wellness Visit. Medicare Wellness Over the past 2 weeks, how often have you been bothered by any of the following problems? Little interest or pleasure in doing things: Not at all Feeling down, depressed, or hopeless: Not at all Patient Health Questionnaire-2 Score: 0 Over the past 2 weeks, how often have you been bothered by any of the following problems? Trouble falling or staying asleep, or sleeping too much: Not at all Feeling tired or having little energy: Not at all Poor appetite or overeating: Not at all Feeling bad about yourself - or that you are a failure or have let yourself or your family down: Not at all Trouble concentrating on things, such as reading the newspaper or watching television: Not at all Moving or speaking so slowly that other people could have noticed? Or the opposite - being so fidgety or restless that you have been moving around a lot more than usual.: Not at all Thoughts that you would be better off or hurting yourself in some way: Not at all Patient Health Questionnaire-9 Score: 0 Stoll Fall Risk History of Falling, Immediate or Within 3 Months: No Health Risk Assessment Form Do you need help eating, bathing, using the toilet, dressing, or getting around your home?: No Can you prepare your own meals?: Yes Can you do your own housework without help?: Yes Can you shop for groceries or clothes without help?: Yes Do you exercise for about 20 minutes 3 or more days a week?: No How confident are you that you can control and manage most of your health problems?: Very confident Can you mange your money, credit cards and accounts, pay bills and taxes?: Yes Vision Screening: Yes, no gross abnormalities Hearing Screening: Yes, no gross abnormalities Cognitive Screening Self Assessment: No overt cognitive deficiency is apparent by direct observation Three Word Registration: Leader, Season, Table Clock Drawing: Normal Clock - 2 Three Word Recall: All 3 words correct - 3 Total Score (0-5 Points): 5 Pain Assessment Pain Score: 8 Advance Care Planning Do you have a living will?: Yes Do you have a medical power of attorney general?: Yes Current Outpatient Medications on File Prior to Visit Medication Sig Dispense Refill triamcinolone (Kenalog) 0.1 % ointment Apply 1 application topically 2 (two) times a day as needed for rash acetaminophen (Tylenol) 500 MG tablet Take 2 tablets by mouth 1 (one) time each day. Ascorbic Acid (vitamin C) 250 MG tablet Take 250 mg by mouth in the morning. cetirizine (ZyrTEC ALLERGY) 10 MG tablet Take 10 mg by mouth Daily as needed. eye vitamin supplement (Ocuvite Eye Health Formula) capsule Take 1 capsule by mouth in the morning. fluticasone (Flonase) 50 MCG/ACT nasal spray ADMINISTER 1-2 SPRAYS INTO EACH NOSTRIL IN THE MORNING. SHAKE GENTLY. BEFORE FIRST USE, PRIME PUMP. AFTER USE, CLEAN TIP AND REPLACE CAP. 48 mL 1 Glucosamine-Chondroitin (Osteo Bi-Flex Regular Strength) 250-200 MG tablet Take 1 tablet by mouth 1(one) time each day. lisinopril 10 MG tablet TAKE 1 TABLET BY MOUTH EVERY DAY IN THE MORNING 100 tablet 3 LORazepam (Ativan) 0.5 MG tablet Take 1 tablet (0.5 mg) by mouth every 6 (six) hours if needed for anxiety or sedation 30 tablet 0 omega-3 acid ethyl esters (Lovaza) 1 g capsule Take 1 g by mouth in the morning. Polyethyl Glyc-Propyl Glyc PF (Systane Preservative Free) 0.4-0.3 % solution Probiotic Product (s0cket [facility]) Take 1 tablet by mouth if needed. simvastatin (Zocor) 20 MG tablet TAKE 1 TABLET BY MOUTH EVERY DAY IN THE EVENING FOR 100 DAYS 90 tablet 4 [DISCONTINUED] levothyroxine (Synthroid, Levoxyl) 50 MCG tablet TAKE 1 TABLET BY MOUTH EVERY MORNING TAKE BEFORE MEALS 100 tablet 3 [DISCONTINUED] levothyroxine (Synthroid, Levoxyl) 50 MCG tablet TAKE 1 TABLET BY MOUTH EVERY MORNING TAKE BEFORE MEALS 100 tablet 3 No current facility-administered medications on file prior to visit. I have reviewed and reconciled the history and medication list with the patient today. Allergies Allergen Reactions Glycerin Itching and Swelling Sulfa Antibiotics Itching and Rash Social History Tobacco Use Smoking status: Former Types: Cigarettes Smokeless tobacco: Never Substance Use Topics Drug use: Never Family History Problem Relation Name Age of Onset Melanoma Neg Hx Past Medical History: Diagnosis Date Abdominal pain Actinic keratosis Acute sinus infection Benign paroxysmal positional vertigo Bronchitis Cerebral aneurysm, nonruptured COVID-19 07/10/2021 Essential hypertension, benign (CMS/HCC) Hyperlipidemia LDL goal <130 (CMS/HCC) Hypothyroidism (acquired) (CMS/HCC) Insomnia, unspecified Lumbar back pain Osteoporosis (CMS/HCC) Past Surgical History: Procedure Laterality Date BACK SURGERY 05/[address] ANGIOGRAM CHEST 09/24/2017 CT ANGIOGRAM CHEST NOMS DATA LEGACY EGD 10/12/2017 MR ANGIOGRAM HEAD WO IV CONTRAST 07/19/2023 MR ANGIOGRAM HEAD WO IV CONTRAST THYROIDECTOMY 2009 TUBAL LIGATION Bilateral VARICOSE VEIN SURGERY VEIN STRIPPING Visit Vitals BP 132/78 Pulse 69 Resp 16 Ht 5' 1 Wt 134 lb 9.6 oz SpO2 99% BMI 25.43 kg/m Smoking Status Former BSA 1.62 m Review of Systems Constitutional: Negative for chills, fatigue and fever. HENT: Negative for congestion, ear pain, rhinorrhea and sore throat. Eyes: Negative for pain, discharge and visual disturbance. Respiratory: Negative for cough, shortness of breath and wheezing. Cardiovascular: Negative for chest pain, palpitations and leg swelling. Gastrointestinal: Negative for abdominal pain, constipation, diarrhea, nausea and vomiting. Genitourinary: Negative for difficulty urinating, dysuria and frequency. Musculoskeletal: Positive for back pain. Negative for arthralgias. Skin: Negative for rash. Neurological: Negative for dizziness and numbness. Psychiatric/Behavioral: Negative for sleep disturbance. The patient is not nervous/anxious. Objective Physical Exam Constitutional: General: She is not in acute distress. Appearance: Normal appearance. She is well-developed. Comments: Pleasant HENT: Head: Normocephalic and atraumatic. Right Ear: Tympanic membrane and ear canal normal. Left Ear: Tympanic membrane and ear canal normal. Nose: Nose normal. Mouth/Throat: Mouth: Mucous membranes are moist. Pharynx: No posterior oropharyngeal erythema. Eyes: General: No scleral icterus. Extraocular Movements: Extraocular movements intact. Conjunctiva/sclera: Conjunctivae normal. Pupils: Pupils are equal, round, and reactive to light. Cardiovascular: Rate and Rhythm: Normal rate and regular rhythm. Heart sounds: Normal heart sounds. No murmur heard. Pulmonary: Effort: Pulmonary effort is normal. No respiratory distress. Breath sounds: Normal breath sounds. No wheezing, rhonchi or rales. Abdominal: General: Bowel sounds are normal. There is no distension. Palpations: Abdomen is soft. Tenderness: There is no abdominal tenderness. There is no guarding. Musculoskeletal: General: No swelling. Normal range of motion. Cervical back: Normal range of motion and neck supple. No tenderness. Thoracic back: Scoliosis present. Lumbar back: Scoliosis present. Skin: General: Skin is warm and dry. Capillary Refill: Capillary refill takes less than 2 seconds. Findings: No rash. Neurological: General: No focal deficit present. Mental Status: She is alert and oriented to person, place, and time. Cranial Nerves: No cranial nerve deficit. Sensory: No sensory deficit. Motor: No weakness. Gait: Gait normal. Deep Tendon Reflexes: Reflexes normal. Psychiatric: Mood and Affect: Mood normal. Behavior: Behavior normal. Thought Content: Thought content normal. Judgment: Judgment normal. Assessment & Plan 1. Medicare annual wellness visit, subsequent (Primary) Reviewed all relevant preventative screenings with the patient in detail. Medicare Wellness form completed and will be scanned into patient's chart. All needed testing was ordered. Will continue withyearly Medicare Wellness exams. - CBC and differential - Comprehensive metabolic panel - Lipid panel - TSH W/REFLEX TO FT4 2. ACP (advance care planning) Patient willing to discuss ACP. Pt has Living Will and DPOA in place. 3. Benign essential hypertension (CMS/HCC) Patient's blood pressure is currently well controlled. Continue with current medications and I willcontinue to monitor. Goal BP remains less than 130/80. - CBC and differential - Comprehensive metabolic panel - Lipid panel 4. Acquired hypothyroidism (CMS/HCC) This is a chronic medical condition that is stable since last assessment. No changes in treatment are suggested at this time. Will continue to monitor with routine labs. - TSH W/REFLEX TO FT4 - levothyroxine (Synthroid, Levoxyl) 50 MCG tablet; Take 1 tablet (50 mcg) by mouth in the morning.Dispense: 100 tablet; Refill: 3 5. Hypocholesterolemia (CMS/HCC) This is a chronic medical condition that is stable since last assessment. No changes in treatment are suggested at this time. Will continue to monitor with routine labs. - Comprehensive metabolic panel - Lipid panel 6. Primary insomnia This is a chronic medical condition that is stable since last assessment. No changes in treatment are suggested at this time. 7. Other chronic pain This is a chronic medical condition that is stable since last assessment. No changes in treatment are suggested at this time. 8. Serous detachment of retinal pigment epithelium, left eye The patient is seeing a medical record consultant for this condition, treatment is deferred to that specialist. Correspondence from that specialist and any available testing were reviewed during today's visit. 9. Cerebral aneurysm, nonruptured Recheck Aneurysm next July. Stable in appearance as of 07/2023. 10. Retinal neovascularization, unspecified, left eye The patient is seeing a medical record consultant for this condition, treatment is deferred to that specialist. Correspondence from that specialist and any available testing were reviewed during today's visit. 11. 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 No changes in treatment are suggested at this time. 12. Disorder of peristalsis of esophagus This is a chronic medical condition that is stable since last assessment. No changes in treatment are suggested at this time. 13. Diverticulosis of sigmoid colon This is a chronic medical condition that is stable since last assessment. No changes in treatment are suggested at this time. 14. Nonulcer dyspepsia This is a chronic medical condition that is stable since last assessment. No changes in treatment are suggested at this time. 15. Calcaneal spur of right foot This is a chronic medical condition that is stable since last assessment. No changes in treatment are suggested at this time. 16. Cervical spondylosis without myelopathy This is a chronic medical condition that is stable since last assessment. No changes in treatment are suggested at this time. 17. Degeneration of intervertebral disc of lumbar region with discogenic back pain This is a chronic medical condition that is stable since last assessment. No changes in treatment are suggested at this time. 18. Age-related osteoporosis without current pathological fracture (CMS/HCC) This is a chronic medical condition that is stable since last assessment. No changes in treatment are suggested at this time. 19. Other idiopathic scoliosis, thoracolumbar region This is a chronic medical condition that is stable since last assessment. No changes in treatment are suggested at this time. 20. Plantar fascial fibromatosis This is a chronic medical condition that is stable since last assessment. No changes in treatment are suggested at this time. 21. Spondylolisthesis, lumbar region This is a chronic medical condition that is stable since last assessment. No changes in treatment are suggested at this time. 22. Thoracic spondylosis This is a chronic medical condition that is stable since last assessment. No changes in treatment are suggested at this time. 23. Anxiety This is a chronic medical condition that is stable since last assessment. No changes in treatment are suggested at this time. 24. Benign paroxysmal positional vertigo due to bilateral vestibular disorder This is a chronic medical condition that is stable since last assessment. No changes in treatment are suggested at this time. 25. Bilateral exudative age-related macular degeneration, unspecified stage ([facility]/HCC) The patient is seeing a medical record consultant for this condition, treatment is deferred to that specialist. Correspondence from that specialist and any available testing were reviewed during today's visit. 26. Glaucoma suspect of both eyes The patient is seeing a medical record consultant for this condition, treatment is deferred to that specialist. Correspondence from that specialist and any available testing were reviewed during today's visit. 27. Postlaminectomy syndrome of lumbar region This is a chronic medical condition that is stable since last assessment. No changes in treatment are suggested at this time. 28. Pseudophakia The patient is seeing a medical record consultant for this condition, treatment is deferred to that specialist. Correspondence from that specialist and any available testing were reviewed during today's visit. 29. Vitreous degeneration, bilateral The patient is seeing a medical record consultant for this condition, treatment is deferred to that specialist. Correspondence from that specialist and any available testing were reviewed during today's visit. Follow up in about 1 year (around 07/10/2025) for Medicare Wellness Visit. Margaux Boykin MSJAYSON FRYEC documented in this encounterFreeman Health [id number] History of Present illness Narrative* INDY Paredes - 05/31/2024 11:30 AM EDT Images from the original note were not included. Subjective Patient ID: Desire Hirsch is a 79 y.o. female who presents for order for testing. Desire is present today for evaluation of allergy symptoms. Admits cold symptoms such as, runny nose, post nasal drainage, cough dry and with clear phlegm, throat and chest area burning all symptoms are off/on. She would like to get tested for an allergy to mold. She does have a neighbor behind herthat has a fence and it is covered with mold and she had an outside test that stated she had a moldallergy. She sent a message to the [employer], but has not heard back yet. Symptoms have been hanging around for two months. Does not use the Flonase consistently, does help with the runny nose when she uses it. Current Outpatient Medications on File Prior to Visit Medication Sig Dispense Refill acetaminophen (Tylenol) 500 MG tablet Take 2 tablets by mouth 1 (one) time each day. Ascorbic Acid (vitamin C) 250 MG tablet Take 250 mg by mouth in the morning. cetirizine (ZyrTEC ALLERGY) 10 MG tablet Take 10 mg by mouth Daily as needed. eye vitamin supplement (Ocuvite Eye Health Formula) capsule Take 1 capsule by mouth in the morning. fluticasone (Flonase) 50 MCG/ACT nasal spray ADMINISTER 1-2 SPRAYS INTO EACH NOSTRIL IN THE MORNING. SHAKE GENTLY. BEFORE FIRST USE, PRIME PUMP. AFTER USE, CLEAN TIP AND REPLACE CAP. 48 mL 1 Glucosamine-Chondroitin (Osteo Bi-Flex Regular Strength) 250-200 MG tablet Take 1 tablet by mouth 1(one) time each day. levothyroxine (Synthroid, Levoxyl) 50 MCG tablet TAKE 1 TABLET BY MOUTH EVERY MORNING TAKE BEFORE MEALS 100 tablet 3 lisinopril 10 MG tablet TAKE 1 TABLET BY MOUTH EVERY DAY IN THE MORNING 100 tablet 3 LORazepam (Ativan) 0.5 MG tablet Take 1 tablet (0.5 mg) by mouth every 6 (six) hours if needed for anxiety or sedation 30 tablet 0 omega-3 acid ethyl esters (Lovaza) 1 g capsule Take 1 g by mouth in the morning. Polyethyl Glyc-Propyl Glyc PF (Systane Preservative Free) 0.4-0.3 % solution Probiotic Product (DAVIDsTEA PO) Take 1 tablet by mouth if needed. simvastatin (Zocor) 20 MG tablet TAKE 1 TABLET BY MOUTH EVERY DAY IN THE EVENING FOR 100 DAYS 90 tablet 4 [DISCONTINUED] ketotifen (Zaditor) 0.025 % ophthalmic solution Administer 1 drop into both eyes in the morning and 1 drop before bedtime. 5 mL 0 No current facility-administered medications on file prior to visit. I have reviewed and reconciled the history and medication list with the patient today. Allergies Allergen Reactions Glycerin Itching and Swelling Sulfa Antibiotics Itching and Rash Social History Tobacco Use Smoking status: Former Types: Cigarettes Smokeless tobacco: Never Substance Use Topics Drug use: Never Family History Problem Relation Name Age of Onset Melanoma Neg Hx Past Medical History: Diagnosis Date Abdominal pain Actinic keratosis Acute sinus infection Benign paroxysmal positional vertigo Bronchitis Cerebral aneurysm, nonruptured COVID-19 07/10/2021 Essential hypertension, benign (CMS/HCC) Hyperlipidemia LDL goal <130 (CMS/HCC) Hypothyroidism (acquired) (CMS/HCC) Insomnia, unspecified Lumbar back pain Osteoporosis (CMS/HCC) Past Surgical History: Procedure Laterality Date BACK SURGERY 05/[address] ANGIOGRAM CHEST 09/24/2017 CT ANGIOGRAM CHEST [facility] EGD 10/12/2017 MR ANGIOGRAM HEAD WO IV CONTRAST 07/19/2023 MR ANGIOGRAM HEAD WO IV CONTRAST THYROIDECTOMY 2009 TUBAL LIGATION Bilateral VARICOSE VEIN SURGERY VEIN STRIPPING Visit Vitals BP (!) 148/92 Pulse 78 Resp 16 Ht 5' 1 Wt 135 lb 9.6 oz SpO2 99% BMI 25.62 kg/m Smoking Status Former BSA 1.63 m Review of Systems Constitutional: Negative for chills, fatigue and fever. HENT: Positive for postnasal drip, rhinorrhea and sore throat. Respiratory: Positive for cough. Negative for shortness of breath and wheezing. Cardiovascular: Negative for chest pain, palpitations and leg swelling. Gastrointestinal: Negative for abdominal pain, constipation, diarrhea, nausea and vomiting. Skin: Negative for rash. Objective Physical Exam Constitutional: General: She is not in acute distress. Appearance: Normal appearance. She is well-developed. HENT: Head: Normocephalic and atraumatic. Nose: Comments: Turbinates with mild erythema Mouth/Throat: Mouth: Mucous membranes are moist. Pharynx: Posterior oropharyngeal erythema present. Comments: Very mild erythema noted Eyes: General: No scleral icterus. Conjunctiva/sclera: Conjunctivae normal. Cardiovascular: Rate and Rhythm: Normal rate and regular rhythm. Heart sounds: Normal heart sounds. No murmur heard. Pulmonary: Effort: Pulmonary effort is normal. No respiratory distress. Breath sounds: Normal breath sounds. No wheezing, rhonchi or rales. Lymphadenopathy: Cervical: No cervical adenopathy. Skin: General: Skin is warm and dry. Neurological: General: No focal deficit present. Mental Status: She is alert and oriented to person, place, and time. Psychiatric: Mood and Affect: Mood normal. Behavior: Behavior normal. Assessment/Plan Diagnoses and all orders for this visit: Benign essential hypertension (CMS/HCC) BP was elevated today. Will need to recheck at her follow up appointment and address medication at that time if indicated. Currently on Lisinopril. Allergic rhinitis due to fungal spores, unspecified seasonality - ALLERGY MOLD PANEL, COMPLETE; Future - CBC and differential; Future Will check mold panel and CBC today for further evaluation. Discussed treatment options with pt. Discussed Azelastine nasal spray, kenalog injection, or Singulair. Patient would like to wait on results of testing and then discuss next steps. Follow up for Appointment As Scheduled. documented in this encounterFre[facility] [id number] Telephone encounter Note* Telephone Encounter - Rachel Moy - 05/24/2024 1:11 PM EDT Scheduled [facility] [id number] Miscellaneous Notes* Telephone Encounter - Rachel Moy - 05/24/2024 1:11 PM EDT Scheduled * Telephone Encounter - INDY Paredes - 05/24/2024 12:43 PM EDT Please help pt get scheduled for her yearly MWV after 07/07. She will need to be seen prior to any additional refills. OARRS reviewed, Rx sent into patient's pharmacy. * Telephone Encounter - Alena Dia LPN - 05/24/2024 9:49 AM EDT Has not been seen in office since 08/12/23. Also asking if there is any allergy testing we can do to see if she is allergic to mold. documented in this encounterFreeman Health [id number] Telephone encounter Note* Telephone Encounter - INDY Paredes - 05/24/2024 12:43 PM EDT Please help pt get scheduled for her yearly MWV after 07/07. She will need to be seen prior to any additional refills. OARRS reviewed, Rx sent into patient's pharmacy. [facility] [id number] Telephone encounter Note* Telephone Encounter - Alena Dia LPN - 05/24/2024 9:49 AM EDT Has not been seen in office since 08/12/23. Also asking if there is any allergy testing we can do to see if she is allergic to mold. [facility] SystemConsult note* Clinical Note Date No Information [facility] Work Phone: Discharge summary* Clinical Note Date No Information [facility] Work Phone: Evaluation note* Diagnosis Anxiety Anxiety state, unspecified documented in this encounter [facility] Healthcare[facility]* Diagnosis Benign essential hypertension (CMS/HCC)- Primary Essential hypertension, benign Allergic rhinitis due to fungal spores, unspecified seasonality documented in this encounter 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 Diverticulosis of sigmoid colon Nonulcer dyspepsia Dyspepsia and other specified disorders of function of stomach Calcaneal spur of right foot Cervical spondylosis without myelopathy Degeneration of intervertebral disc of lumbar region with discogenic back pain Age-related osteoporosis without current pathological fracture (CMS/HCC) Other idiopathic scoliosis, thoracolumbar region Plantar fascial fibromatosis Spondylolisthesis, lumbar region Thoracic spondylosis Anxiety Anxiety state, unspecified Benign paroxysmal positional vertigo due to bilateral vestibular disorder Bilateral exudative age-related macular degeneration, unspecified stage (CMS/HCC) Glaucoma suspect of both eyes Unspecified preglaucoma Postlaminectomy syndrome of lumbar region Postlaminectomy syndrome, lumbar region Pseudophakia Lens replaced by other means Vitreous degeneration, bilateral documented in this encounter [facility]* Diagnosis Right shoulder pain, unspecified chronicity- Primary documented in this encounter [facility] HealthcareEvaluation [facility]* Diagnosis Sternocostal pain- Primary 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 Benign essential hypertension (CMS/HCC) Essential hypertension, benign Anxiety Anxiety state, unspecified Chest pain, unspecified type Other fatigue Holosystolic murmur Exudative age-related macular degeneration, bilateral, stage unspecified (CMS/HCC) documented in this encounter [facility]* Type Assessment Date No Information [facility] Work Phone: History and physical note* Clinical Note Date No Information [facility] Work Phone: Progress note* Clinical Note Date No Information [facility] Work Phone: Reason for referral (narrative)* Reason For Referral No Information [facility] Work Phone: Summary Purpose Family History Family Member Type Diagnosis Age At Onset Problem (finding) Family history of catar act Problem (finding) Family history of degenerative disorder of macula Problem (finding) Family history of Heart Disease-mother Advance Directives Directive Yes / No Effective Date File Name No Information Procedure Findings Note Patient: DESIRE HIRSCH MR N: [id number] Age: 73 years Sex: Female : 1945 Associated Diagnoses: None Author: Gonzales Fermin Jr, DO Postoperative Information Post Operative Note: Post Anesthesia Care Unit. Anesthetic utilized: Monitored anesthesia care. Health Status Allergies: Allergic Reactions (Selected) Severity Not Documented Latex- Unknown. Sulfamethoxazole- Unknown. Problem list: No problem items selected or recorded. Physical Examination Vital Signs 06/29/2018 08:25 EST Heart Rate Monitored 79 bpm Respiratory Rate Monitored 18.0 br/min Systolic Blood Pressure 106 mmHg Diastolic Blood Pressure 58 mmHg LOW SpO2 98 % SpO2 100 % 06/29/2018 08:15 EST Heart Rate Monitored 78 bpm Respiratory Rate Monitored 18.0 br/min Systolic Blood Pressure 94 mmHg Diastolic Blood Pressure 56 mmHg LOW SpO2 98 % 06/29/2018 08:10 EST Heart Rate Monitored 83 bpm Respiratory Rate Monitored 16.0 br/min Systolic Blood Pressure 99 mmHg Diastolic Blood Pressure 61 mmHg SpO2 98 % 06/29/20 (more content not included)... Note Admission Information admitt ed for elective left L4-5-S1 hemilaminotomy Hospital Course uneventful Significant Findings none Medications Home Citracal + D, BID Fish Oil, Oral levothyroxine 50 mcg (0.05 mg) oral tablet lisinopril 10 mg oral tablet multivitamin, Daily [facility], Oral, Daily pregabalin 25 mg oral capsule, 25 mg, 1 caps, Oral, HS (at bedtime) TheraTears, 1 drops, Eye-Both, BID, PRN Tylenol 8 Hour 650 mg oral tablet, extended release, 1300 mg, 2 tabs, Oral, q8hr, PRN Prescriptions Colace 100 mg oral capsule, 100 mg, Oral, BID Percocet 5/325 oral tablet, 1 tabs, Oral, q4hr, PRN Procedures and Treatment Provided left L4-5-S1 hemilaminotomy Physical Exam Vitals & Measurements T: 36.6 ?C (Axillary) T: 37.2 ?C (Oral) T: 36.1 ?C (Temporal Artery) HR: 66 (Monitored) RR: 16 BP: 97/46 SpO2: 98% HT: 157.5 cm WT: 61.4 kg DOSE WT: 61.5 kg BMI: 24.79 5/5 filomena LE strength dressing intact Additional Vitals Peripheral Pulse Rate: 99 bpm Discharge Plan 1. Status post lumbar disc (more content not included)... Hospital Course Note Admission Information admitt ed for elective left L4-5-S1 hemilaminotomy Hospital Course uneventful Significant Findings none Medications Home Citracal + D, BID Fish Oil, Oral levothyroxine 50 mcg (0.05 mg) oral tablet lisinopril 10 mg oral tablet multivitamin, Daily [facility], Oral, Daily pregabalin 25 mg oral capsule, 25 mg, 1 caps, Oral, HS (at bedtime) TheraTears, 1 drops, Eye-Both, BID, PRN Tylenol 8 Hour 650 mg oral tablet, extended release, 1300 mg, 2 tabs, Oral, q8hr, PRN Prescriptions Colace 100 mg oral capsule, 100 mg, Oral, BID Percocet 5/325 oral tablet, 1 tabs, Oral, q4hr, PRN Procedures and Treatment Provided left L4-5-S1 hemilaminotomy Physical Exam Vitals & Measurements T: 36.6 ?C (Axillary) T: 37.2 ?C (Oral) T: 36.1 ?C (Temporal Artery) HR: 66 (Monitored) RR: 16 BP: 97/46 SpO2: 98% HT: 157.5 cm WT: 61.4 kg DOSE WT: 61.5 kg BMI: 24.79 5/5 filomena LE strength dressing intact Additional Vitals Peripheral Pulse Rate: 99 bpm Discharge Plan 1. Status post lumbar disc (more content not included)... Chief Complaint and Reason for Visit From encounter dated '10/03/2024 12:50'. AMD (chief complaint). Description: The 79 year old female presents for evaluation of AMD in the right eye and left eye. Patient noticed about a week ago that her vision had gotten blurrier on the grid on the right side of it patient noticed changed and black spots in it. Vision hasn't worsened since last week ago. Patient denies flashes of light, eye pain or new floaters. Patient reportsright eye remaining stable. Patient was on a 5 month intraval and last treated with Eylea on 05/16 (4 months ago). From encounter dated '11/22/2024 13:50'. macular degeneration (chief complaint). Description: The 79 year old patient presents for evaluation of macular degeneration in the left eye. No Information Additional Source Comments INFORMATION SOURCE (unrecogn ized section and content) DATE CREATED AUTHOR 01/27/2018 [facility] DATE CREATED AUTHOR AUTHORBerna MANLEY 02/01/2018 [facility] DATE CREATED AUTHOR AUTHOR'S ORGANIZ ATION 02/18/2019 [facility] DATE CREATED AUTHOR AUTHOR'S ORGANIZ ATION 10/17/2019 [facility] DATE CREATED AUTHOR AUTHOR'S ORGANIZ ATION 09/12/2022 [facility] DATE CREATED AUTHOR AUTHOR'S ORGANIZ ATION 07/13/2024 [facility] DATE CREATED AUTHOR AUTHOR'S ORGANIZ ATION 01/05/2025 [facility] DATE CREATED AUTHOR AUTHOR'S ORGANIZ ATION 01/06/[address] [facility] Care Teams (unrecognized sec tion and content) [employer] Relationship Specialty Start Date End Date Juve Combs MD [address] [place] [address] PCP - General Internal Medicine 12/15/22 [employer] Relationship Specialty Start Date End Date Juve Combs MD [address] [place] [address] PCP - General Internal Medicine 12/15/22 [employer] Relationship Specialty Start Date End Date Juve oCmbs MD [address] [place] [address] PCP - General Internal Medicine 12/15/22 [employer]ainer [employer] Relationship Specialty Start Date End Date Juve Combs MD [address] [place] [address] PCP - General Internal Medicine 12/15/22 [employer]ainer [employer] Relationship Specialty Start Date End Date Juve Combs MD [address] [place] [address] PCP - General Internal Medicine 12/15/22 M[employer]ainer [employer] Relationship Specialty Start Date End Date Juve Combs MD [address] [place] [address] PCP - General Internal Medicine 12/15/22 Name Effective Dates (start - stop) Status Members No Information [employer] Relationship Specialty Start Date End Date Juve Combs MD [address] [facility] [address] [place], [place] [id number] PCP - General Internal Medicine 12/15/22 Reason for Visit (unrecogniz ed section and content) Reason Comments Med Refill Levothyroxine Reason Comments Pain FOR RECORDS PERTAINING TO PATIENTS WHO ARE OR HAVE BEEN ENROLLED IN A CHEMICAL DEPENDENCY/SUBSTANCEABUSE PROGRAM, SOME INFORMATION MAY BE OMITTED. This clinical summary was aggregated from multiple sources. Caution should be exercised in using it in the provision of clinical care. This summary normalizes information from multiple sources, and as a consequence, information in this document may materially change the coding, format and clinical context of patient data. In addition, data may be omitted in some cases. CLINICAL DECISIONS SHOULD BE BASED ON THE PRIMARY CLINICAL RECORDS. [email or web address] provides no warranty or guarantee of the accuracy or completeness of information in this document.
== END 2025-01-25 09:51 | disposition home or self-care (01) ==
PROVIDERS: PCP Internal Medicine; Visit Provider Physician Assistant
DX: R07.9 Chest pain, unspecified (principal); I10 Essential (primary) hypertension; R53.83 Other fatigue; R01.1 Cardiac murmur, unspecified
CPT/HCPCS: 93306